=== PATIENT | female | born 1970 | race Caucasian/White ===

== ENCOUNTER → 2017-06-12 09:53 | Outpatient (POV) | payer OTHER, SELFPAY ==
[2017-06-12 10:09] VITALS: BP 145/86; PULSE 78; RESP 18; O2SAT 99; BMI 33.3
--- NOTE | 2017-06-12 10:30 | HMH.PAINSOAP ---
[facility] Pain Management SOAP Note Subjective:: This patient is a pleasant 46-year-old white female who we are treating for low back pain with lumbar radiculopathy symptoms. She also has neck pain with cervical radiculopathy symptoms. She is currently on [place] 10 mg 1 tablet 4 times a day. This does decrease her pain by 75-80%. She is stable with her medications. She also has a shunt in place for history of pseudotumor cerebri. She did get injections in the past which gave her some relief. She is doing well with her medications at this point with no side effects and on a stable dose so she would like to hold off on an injection at this point. We will refill her [place] 10 mg 1 tablet 4 times a day. We will give HER-2 months worth of prescriptions. [place] and urine drug screen are all appropriate. [facility] #[id number]. Objective:: Alert and oriented ?3 in no acute distress. Good range of motion of the cervical and lumbar spine. Tenderness over the cervical and lumbar spine. Motor strength of the upper and lower extremities is 5/5. There is no gross sensory deficit. Assessment:: Degenerative disc disease of the cervical spine with cervical radiculopathy symptoms. Degenerative disc disease of lumbar spine multiple levels with lumbar radiculopathy symptoms. Fibromyalgia. Plan:: We will refill her [place] 10 mg 1 tablet 4 times a day. She is doing well with her medication. She is stable on this medication. We will do injections as needed. We will give HER-2 months worth of prescriptions and follow-up with her in 3 months. She can order picker/assembler her third month from here in the pain clinic.
--- NOTE | 2017-06-12 10:33 | P.CONS_ITS ---
[facility] Pain Management SOAP Note Subjective:: This patient is a pleasant 46-year-old white female who we are treating for low back pain with lumbar radiculopathy symptoms. She also has neck pain with cervical radiculopathy symptoms. She is currently on [place] 10 mg 1 tablet 4 times a day. This does decrease her pain by 75-80%. She is stable with her medications. She also has a shunt in place for history of pseudotumor cerebri. She did get injections in the past which gave her some relief. She is doing well with her medications at this point with no side effects and on a stable dose so she would like to hold off on an injection at this point. We will refill her [place] 10 mg 1 tablet 4 times a day. We will give HER-2 months worth of prescriptions. [place] and urine drug screen are all appropriate. [facility] # [id number]. Objective:: Alert and oriented ?3 in no acute distress. Good range of motion of the cervical and lumbar spine. Tenderness over the cervical and lumbar spine. Motor strength of the upper and lower extremities is 5/5. There is no gross sensory deficit. Assessment:: Degenerative disc disease of the cervical spine with cervical radiculopathy symptoms. Degenerative disc disease of lumbar spine multiple levels with lumbar radiculopathy symptoms. Fibromyalgia. Plan:: We will refill her [place] 10 mg 1 tablet 4 times a day. She is doing well with her medication. She is stable on this medication. We will do injections as needed. We will give HER-2 months worth of prescriptions and follow-up with her in 3 months. She can pickling grader her third month from here in the pain clinic.
== END ==
PROVIDERS: Family Provider Nurse Practitioner Family; PCP Nurse Practitioner Family; Visit Provider Anesthesiology
DX: M54.12 Radiculopathy, cervical region (principal); M54.16 Radiculopathy, lumbar region
CPT/HCPCS: 99212

== ENCOUNTER → 2017-06-12 11:02 | Outpatient (CLI) | payer BC, SELFPAY ==
[2017-06-12 13:13] LABS: Amphetamine/Metha Screen,Urine Negative ng/mL (<1000); Barbiturates Screen,Urine Negative ng/mL (<200); Benzodiazepines Screen,Urine Negative ng/mL (200); Cannabinoid Screen,Urine Negative ng/mL (<50); Cocaine Screen,Urine Negative ng/g (<300); Methadone Screen,Urine Negative ng/mL (<300); Opiate Screen,Urine Positive ng/mL (<300); Phencyclidine Screen,Urine Negative ng/mL (<25)
[2017-06-16 22:08] LABS: Codeine Negative (Cutoff=100); Hydrocodone Positive (.); Hydromorphone Positive (.); Morphine Negative (Cutoff=100)
[2017-06-17 18:34] LABS: Opiates Positive (.)
== END ==
PROVIDERS: Visit Provider Anesthesiology
DX: Z79.899 Other long term (current) drug therapy (principal)
CPT/HCPCS: 80305; 80361; 80365; G0480

== ENCOUNTER → 2017-09-18 08:45 | Outpatient (POV) | payer BC, SELFPAY ==
[2017-09-18 08:57] VITALS: BP 125/88; PULSE 88; RESP 18; O2SAT 98; BMI 34.9
--- NOTE | 2017-09-18 09:04 | HMH.PAINSOAP ---
[facility] Pain Management SOAP Note Subjective:: Patient is a pleasant 47-year-old white female who presents today for medication refills. We are treating the patient for pain secondary to degenerative disc disease of the cervical spine with cervical radiculopathy and fibromyalgia also degenerative disc disease of the lumbar spine with lumbar radiculopathy. Patient is doing quite well at this time. She rates her pain at 3 out of 10. Patient states most of her pain is in her feet and hands today. Patient states she is having a slight fibromyalgia flare. Patient's tried Cymbalta in the past with not much relief with this. Patient is doing well on her [place] 10 mg 1 tab p.o. 4 times daily. Patient states that she has had no side effects. Patient's YANELI #[id number] reviewed and appropriate. Patient's urine drug screen has been appropriate in the past. Patient has had injections in the past and is still creeping some benefit from this. ROS General: no recent weight change, no fever, no sleep disturbances Respiratory: no cough, no shortness of air, no recurring pulmonary infections Cardiovascular/Peripheral Vascular: No chest pain, No palpitations, no edema, no shortness of breath. Gastrointestinal: no incontinence, normal bowel movements reported Genitourinary: no incontinence Musculoskeletal: Foot pain, arm pain Psychiatric: normal mood/ affect Neurological: [denies weakness in extremities], [denies balance issues] Objective:: Physical Exam General: Alert and oriented x3, no acute distress, pleasant and cooperative, [on room air] Lungs: Resps E/U, Symmetrical chest expansion, Eyes: PERRL Musculoskeletal: Flexion and extension of cervical and lumbar spine somewhat guarded secondary to pain, deep tendon reflexes normal, strength in upper and lower extremities [5/5], normal gait noted Neurological: speech clear, blueprint clerk equal, no gross sensory deficits Assessment:: Degenerative disc disease of the cervical spine spine with cervical radiculopathy symptoms, fibromyalgia, degenerative disc disease of lumbar spine with lumbar radiculopathy Plan:: We will refill the patient's medication [place] 10 mg 1 tab p.o. 4 times daily we will give her 2 months worth of medication and she can pick her third month up in the interim. We will follow-up with her in 3 months unless she needs this prior to this appointment. Dr. Salas has reviewed this chart and agrees with this plan of care. Yaneli and UDS have been reviewed. Patient has been prescribed a controlled substance after being counseled on the medication, medication safety, and possible side effects. YANELI report has been obtained and reviewed prior to prescription and found to be appropriate. Opioid contract was reviewed and signed by the patient, and that they have agreed to all of the terms set forth by our compliance program. This note was dictated using voice recognition software and may contain errors or omissions
--- NOTE | 2017-09-18 09:07 | P.CONS_ITS ---
[facility] Pain Management SOAP Note Subjective:: Patient is a pleasant 47-year-old white female who presents today for medication refills. We are treating the patient for pain secondary to degenerative disc disease of the cervical spine with cervical radiculopathy and fibromyalgia also degenerative disc disease of the lumbar spine with lumbar radiculopathy. Patient is doing quite well at this time. She rates her pain at 3 out of 10. Patient states most of her pain is in her feet and hands today. Patient states she is having a slight fibromyalgia flare. Patient's tried Cymbalta in the past with not much relief with this. Patient is doing well on her [place] 10 mg 1 tab p.o. 4 times daily. Patient states that she has had no side effects. Patient's YANELI #[id number] reviewed and appropriate. Patient's urine drug screen has been appropriate in the past. Patient has had injections in the past and is still creeping some benefit from this. ROS General: no recent weight change, no fever, no sleep disturbances Respiratory: no cough, no shortness of air, no recurring pulmonary infections Cardiovascular/Peripheral Vascular: No chest pain, No palpitations, no edema, no shortness of breath. Gastrointestinal: no incontinence, normal bowel movements reported Genitourinary: no incontinence Musculoskeletal: Foot pain, arm pain Psychiatric: normal mood/ affect Neurological: [denies weakness in extremities], [denies balance issues] Objective:: Physical Exam General: Alert and oriented x3, no acute distress, pleasant and cooperative, [ on room air] Lungs: Resps E/U, Symmetrical chest expansion, Eyes: PERRL Musculoskeletal: Flexion and extension of cervical and lumbar spine somewhat guarded secondary to pain, deep tendon reflexes normal, strength in upper and lower extremities [5/5], normal gait noted Neurological: speech clear, pneumatic system conveyor operator equal, no gross sensory deficits Assessment:: Degenerative disc disease of the cervical spine spine with cervical radiculopathy symptoms, fibromyalgia, degenerative disc disease of lumbar spine with lumbar radiculopathy Plan:: We will refill the patient's medication [place] 10 mg 1 tab p.o. 4 times daily we will give her 2 months worth of medication and she can pick her third month up in the interim. We will follow-up with her in 3 months unless she needs this prior to this appointment. Dr. Salas has reviewed this chart and agrees with this plan of care. Yaneli and UDS have been reviewed. Patient has been prescribed a controlled substance after being counseled on the medication, medication safety, and possible side effects. YANELI report has been obtained and reviewed prior to prescription and found to be appropriate. Opioid contract was reviewed and signed by the patient, and that they have agreed to all of the terms set forth by our compliance program. This note was dictated using voice recognition software and may contain errors or omissions
== END ==
PROVIDERS: Family Provider Nurse Practitioner Family; PCP Nurse Practitioner Family; Visit Provider Clinical Nurse Specialist Family Health
DX: M54.12 Radiculopathy, cervical region (principal); M79.7 Fibromyalgia
CPT/HCPCS: 99212

== ENCOUNTER → 2017-11-15 12:20 | Outpatient (CLI) | payer BC, SELFPAY ==
[2017-11-15 12:41] LABS: Amphetamine/Metha Screen,Urine Negative ng/mL (<1000); Barbiturates Screen,Urine Negative ng/mL (<200); Benzodiazepines Screen,Urine Negative ng/mL (<200); Cannabinoid Screen,Urine Negative ng/mL (<50); Cocaine Screen,Urine Negative ng/mL (<300); Methadone Screen,Urine Negative ng/mL (<300); Opiate Screen,Urine Positive ng/mL (<300); Phencyclidine Screen,Urine Negative ng/mL (<25)
[2017-11-21 18:18] LABS: Codeine Negative (Cutoff=100); Hydrocodone Positive (.); Hydromorphone Positive (.); Morphine Negative (Cutoff=100)
[2017-11-22 14:48] LABS: Opiates Positive (.)
== END ==
PROVIDERS: Visit Provider Clinical Nurse Specialist Family Health
DX: Z79.899 Other long term (current) drug therapy (principal)
CPT/HCPCS: 80305; 80361; 80365; G0480

== ENCOUNTER → 2017-12-11 09:44 | Outpatient (POV) | payer BC, SELFPAY ==
[2017-12-11 09:51] VITALS: BP 164/93; PULSE 90; RESP 18; O2SAT 98; BMI 33.3
--- NOTE | 2017-12-18 12:44 | HMH.PAINSOAP ---
[facility] Pain Management SOAP Note Subjective:: Date of service 12/11/2017 Patient is a pleasant 47-year-old white female who presents today for medication refills. We are treating the patient for pain secondary to degenerative disc disease of the cervical spine with cervical radiculopathy and fibromyalgia also degenerative disc disease of the lumbar spine with lumbar radiculopathy. Patient is doing quite well at this time. She rates her pain at 5 out of 10. Patient is doing well on her [place] 10 mg 1 tab p.o. 4 times daily. Patient states that she has had no side effects. Patient's YANELI reviewed and appropriate. Patient's urine drug screen has been appropriate in the past. Patient has had injections in the past and is still doing well. ROS General: no recent weight change, no fever, no sleep disturbances Respiratory: no cough, no shortness of air, no recurring pulmonary infections Cardiovascular/Peripheral Vascular: No chest pain, No palpitations, no edema, no shortness of breath. Gastrointestinal: no incontinence, normal bowel movements reported Genitourinary: no incontinence Musculoskeletal: Neck pain, arm pain Psychiatric: normal mood/ affect Neurological: [denies weakness in extremities], [denies balance issues] Objective:: Physical Exam General: Alert and oriented x3, no acute distress, pleasant and cooperative, [on room air] Lungs: Resps E/U, Symmetrical chest expansion, Eyes: PERRL Musculoskeletal: Flexion and extension of cervical spine somewhat guarded secondary to pain, deep tendon reflexes normal, strength in upper and lower extremities [5/5], [abnormal gait noted] Neurological: speech clear, chemical economist equal, no gross sensory deficits Assessment:: Degenerative disc disease of the cervical spine with cervical radiculopathy and fibromyalgia, degenerative disc disease of the lumbar spine with lumbar radiculopathy Plan:: We will refill the patient's [place] 10 mg 1 p.o. 4 times daily. We will give her 2 months worth of prescriptions. Patient's Yaneli and urine drug screen reviewed. Dr. Salas has reviewed this chart and agrees with this plan of care. I will follow-up with her in 3 months and she can brick picker her third month in the interim. Patient has been prescribed a controlled substance after being counseled on the medication, medication safety, and possible side effects. YANELI report has been obtained and reviewed prior to prescription and found to be appropriate. Opioid contract was reviewed and signed by the patient, and that they have agreed to all of the terms set forth by our compliance program. This note was dictated using voice recognition software and may contain errors or omissions
--- NOTE | 2017-12-18 12:47 | P.CONS_ITS ---
[facility] Pain Management SOAP Note Subjective:: Date of service 12/11/2017 Patient is a pleasant 47-year-old white female who presents today for medication refills. We are treating the patient for pain secondary to degenerative disc disease of the cervical spine with cervical radiculopathy and fibromyalgia also degenerative disc disease of the lumbar spine with lumbar radiculopathy. Patient is doing quite well at this time. She rates her pain at 5 out of 10. Patient is doing well on her [place] 10 mg 1 tab p.o. 4 times daily. Patient states that she has had no side effects. Patient's YANELI reviewed and appropriate. Patient's urine drug screen has been appropriate in the past. Patient has had injections in the past and is still doing well. ROS General: no recent weight change, no fever, no sleep disturbances Respiratory: no cough, no shortness of air, no recurring pulmonary infections Cardiovascular/Peripheral Vascular: No chest pain, No palpitations, no edema, no shortness of breath. Gastrointestinal: no incontinence, normal bowel movements reported Genitourinary: no incontinence Musculoskeletal: Neck pain, arm pain Psychiatric: normal mood/ affect Neurological: [denies weakness in extremities], [denies balance issues] Objective:: Physical Exam General: Alert and oriented x3, no acute distress, pleasant and cooperative, [on room air] Lungs: Resps E/U, Symmetrical chest expansion, Eyes: PERRL Musculoskeletal: Flexion and extension of cervical spine somewhat guarded secondary to pain, deep tendon reflexes normal, strength in upper and lower extremities [5/5], [abnormal gait noted] Neurological: speech clear, mechanical design technician equal, no gross sensory deficits Assessment:: Degenerative disc disease of the cervical spine with cervical radiculopathy and fibromyalgia, degenerative disc disease of the lumbar spine with lumbar radiculopathy Plan:: We will refill the patient's [place] 10 mg 1 p.o. 4 times daily. We will give her 2 months worth of prescriptions. Patient's Yaneli and urine drug screen reviewed. Dr. Salas has reviewed this chart and agrees with this plan of care. I will follow-up with her in 3 months and she can lemon picker her third month in the interim. Patient has been prescribed a controlled substance after being counseled on the medication, medication safety, and possible side effects. YANELI report has been obtained and reviewed prior to prescription and found to be appropriate. Opioid contract was reviewed and signed by the patient, and that they have agreed to all of the terms set forth by our compliance program. This note was dictated using voice recognition software and may contain errors or omissions
== END ==
PROVIDERS: Family Provider Nurse Practitioner Family; PCP Nurse Practitioner Family; Visit Provider Clinical Nurse Specialist Family Health
DX: M50.10 Cervical disc disorder with radiculopathy, unspecified cervical region (principal); M79.1 Myalgia; M51.16 Intervertebral disc disorders with radiculopathy, lumbar region
CPT/HCPCS: 99213

== ENCOUNTER → 2018-03-05 09:20 | Outpatient (POV) | payer BC, SELFPAY ==
[2018-03-05 09:34] VITALS: BP 158/87; PULSE 82; RESP 18; O2SAT 98; BMI 32.9
--- NOTE | 2018-03-05 09:52 | HMH.PAINSOAP ---
[facility] Pain Management SOAP Note Subjective:: Patient is a pleasant 47-year-old white female who presents today for medication refills. We are treating her for pain secondary to degenerative disc disease of the cervical spinal cervical radiculopathy and fibromyalgia. Patient also has degenerative disc disease lumbar spine with lumbar radiculopathy. She is doing well rating her pain a 7 out of 10. She states that it is increased to the weather. Patient is on [place] 10 mg 1 tab p.o. 4 times daily and states that she has no side effects. Yaneli reviewed and appropriate. Urine drug screen has been appropriate in the past. ROS General: no recent weight change, no fever, no sleep disturbances Respiratory: no cough, no shortness of air, no recurring pulmonary infections Cardiovascular/Peripheral Vascular: No chest pain, No palpitations, no edema, no shortness of breath. Gastrointestinal: no incontinence, normal bowel movements reported Genitourinary: no incontinence Musculoskeletal: Neck pain, arm pain, back pain Psychiatric: normal mood/ affect Neurological: [denies weakness in extremities], [denies balance issues] Objective:: Physical Exam General: Alert and oriented x3, no acute distress, pleasant and cooperative, [on room air] Lungs: Resps E/U, Symmetrical chest expansion, Eyes: PERRL Musculoskeletal: Flexion and extension of cervical and lumbar spine somewhat guarded secondary to pain, deep tendon reflexes normal, strength in upper and lower extremities [5/5], slightly antalgic gait noted Neurological: speech clear, glass technician/installer equal, no gross sensory deficits Assessment:: Degenerative disc disease cervical spine with cervical radiculopathy, fibromyalgia, degenerative disc disease lumbar spine with lumbar radiculopathy Plan:: We will refill the patient's [place] 10 mg 1 p.o. 4 times daily and give her 2 months worth of prescriptions. Yaneli and urine drug screen reviewed. Dr. Salas has reviewed this chart and agrees with this plan of care. I will follow-up with her in 3 months and she can picked edge sewing machine operator her third month in the interim. We will also call in [facility] to see if this is beneficial for her. Patient has been prescribed a controlled substance after being counseled on the medication, medication safety, and possible side effects. YANELI report has been obtained and reviewed prior to prescription and found to be appropriate. Opioid contract was reviewed and signed by the patient, and that they have agreed to all of the terms set forth by our compliance program. This note was dictated using voice recognition software and may contain errors or omissions
[2018-03-05 11:12] LABS: Barbiturates Screen,Urine Negative ng/mL (<200); Benzodiazepines Screen,Urine Negative ng/mL (<200); Cannabinoid Screen,Urine Negative ng/mL (<50); Cocaine Screen,Urine Negative ng/mL (<300); Methadone Screen,Urine Negative ng/mL (<300); Opiate Screen,Urine Positive ng/mL (<300); Phencyclidine Screen,Urine Negative ng/mL (<25)
[2018-03-05 11:23] LABS: Amphetamine/Metha Screen,Urine Negative ng/mL (<1000)
[2018-03-11 10:08] LABS: Codeine Negative (Cutoff=100); Hydrocodone Positive (.); Hydromorphone Positive (.); Morphine Negative (Cutoff=100)
[2018-03-12 06:30] LABS: Opiates Positive (.)
== END ==
PROVIDERS: PCP Nurse Practitioner Family; Visit Provider Clinical Nurse Specialist Family Health
DX: M50.10 Cervical disc disorder with radiculopathy, unspecified cervical region (principal); M51.16 Intervertebral disc disorders with radiculopathy, lumbar region; M79.7 Fibromyalgia; Z79.899 Other long term (current) drug therapy
CPT/HCPCS: 80305; 80361; 80365; 99213; G0480

== ENCOUNTER → 2018-06-04 09:30 | Outpatient (POV) | payer BC, SELFPAY ==
[2018-06-04 09:43] VITALS: BP 138/69; PULSE 75; RESP 18; O2SAT 98; BMI 33.3
--- NOTE | 2018-06-04 09:52 | HMH.PAINSOAP ---
[facility] Pain Management SOAP Note Subjective:: Patient is a pleasant 47-year-old white female who presents today for medication refills. We are treating her for pain secondary to degenerative disc disease of cervical spine with cervical radiculopathy and fibromyalgia. She rates her pain a 3 out of 10 today and states she is doing well. She denies any side effects from medication and is currently managed with [place] 10 mg 1 tab p.o. 4 times daily. ROS General: no recent weight change, no fever, no sleep disturbances Respiratory: no cough, no shortness of air, no recurring pulmonary infections Cardiovascular/Peripheral Vascular: No chest pain, No palpitations, no edema, no shortness of breath. Gastrointestinal: no incontinence, normal bowel movements reported Genitourinary: no incontinence Musculoskeletal: Back pain, neck pain Psychiatric: normal mood/ affect Neurological: [denies weakness in extremities], [denies balance issues] Objective:: Physical Exam General: Alert and oriented x3, no acute distress, pleasant and cooperative, [on room air] Lungs: Resps E/U, Symmetrical chest expansion, Eyes: PERRL Musculoskeletal: Flexion and extension of cervical and lumbar spine somewhat guarded secondary to pain, deep tendon reflexes normal, strength in upper and lower extremities [5/5], normal gait noted Neurological: speech clear, car trimmer equal, no gross sensory deficits Assessment:: Degenerative disc disease cervical spine with cervical radiculopathy/fibromyalgia/degenerative disc disease lumbar spine with lumbar radiculopathy Plan:: We will refill the patient's [place] 10 mg 1 p.o. 4 times daily and give her 2 months worth of prescriptions. Yaneli and urine drug screen reviewed and appropriate. Dr. Salas has reviewed the chart and agrees with this plan of care. I will follow-up with her in 3 months and she can bean picker her third month in the interim. Patient has been prescribed a controlled substance after being counseled on the medication, medication safety, and possible side effects. YANELI report has been obtained and reviewed prior to prescription and found to be appropriate. Opioid contract was reviewed and signed by the patient, and that they have agreed to all of the terms set forth by our compliance program. Dr. Salas has reviewed this note and agrees with this plan of care. This note was dictated using voice recognition software and may contain errors or omissions
--- NOTE | 2018-06-04 09:56 | P.CONS_ITS ---
[facility] Pain Management SOAP Note Subjective:: Patient is a pleasant 47-year-old white female who presents today for medication refills. We are treating her for pain secondary to degenerative disc disease of cervical spine with cervical radiculopathy and fibromyalgia. She rates her pain a 3 out of 10 today and states she is doing well. She denies any side effects from medication and is currently managed with [place] 10 mg 1 tab p.o. 4 times daily. ROS General: no recent weight change, no fever, no sleep disturbances Respiratory: no cough, no shortness of air, no recurring pulmonary infections Cardiovascular/Peripheral Vascular: No chest pain, No palpitations, no edema, no shortness of breath. Gastrointestinal: no incontinence, normal bowel movements reported Genitourinary: no incontinence Musculoskeletal: Back pain, neck pain Psychiatric: normal mood/ affect Neurological: [denies weakness in extremities], [denies balance issues] Objective:: Physical Exam General: Alert and oriented x3, no acute distress, pleasant and cooperative, [on room air] Lungs: Resps E/U, Symmetrical chest expansion, Eyes: PERRL Musculoskeletal: Flexion and extension of cervical and lumbar spine somewhat guarded secondary to pain, deep tendon reflexes normal, strength in upper and lower extremities [5/5], normal gait noted Neurological: speech clear, electronic technologist equal, no gross sensory deficits Assessment:: Degenerative disc disease cervical spine with cervical radiculopathy/fibromya lgia/degenerative disc disease lumbar spine with lumbar radiculopathy Plan:: We will refill the patient's [place] 10 mg 1 p.o. 4 times daily and give her 2 months worth of prescriptions. Yaneli and urine drug screen reviewed and appropriate. Dr. Salas has reviewed the chart and agrees with this plan of care. I will follow-up with her in 3 months and she can peanut picker her third month in the interim. Patient has been prescribed a controlled substance after being counseled on the medication, medication safety, and possible side effects. YANELI report has been obtained and reviewed prior to prescription and found to be appropriate. Opioid contract was reviewed and signed by the patient, and that they have agreed to all of the terms set forth by our compliance program. Dr. Salas has reviewed this note and agrees with this plan of care. This note was dictated using voice recognition software and may contain errors or omissions
== END ==
PROVIDERS: PCP Nurse Practitioner Family; Visit Provider Clinical Nurse Specialist Family Health
DX: M50.10 Cervical disc disorder with radiculopathy, unspecified cervical region (principal); M79.7 Fibromyalgia; M51.16 Intervertebral disc disorders with radiculopathy, lumbar region
CPT/HCPCS: 99213

== ENCOUNTER → 2018-08-01 12:56 | Outpatient (CLI) | payer BC, SELFPAY ==
[2018-08-01 16:10] LABS: Amphetamine/Metha Screen,Urine Negative ng/mL (<1000); Barbiturates Screen,Urine Negative ng/mL (<200); Benzodiazepines Screen,Urine Negative ng/mL (<200); Cannabinoid Screen,Urine Negative ng/mL (<50); Cocaine Screen,Urine Negative ng/mL (<300); Methadone Screen,Urine Negative ng/mL (<300); Opiate Screen,Urine Positive ng/mL (<300); Phencyclidine Screen,Urine Negative ng/mL (<25)
[2018-08-07 15:09] LABS: Codeine Negative (Cutoff=100); Hydrocodone Positive (.); Hydromorphone Positive (.); Morphine Negative (Cutoff=100)
[2018-08-08 06:52] LABS: Opiates Positive (.)
== END ==
PROVIDERS: Visit Provider Clinical Nurse Specialist Family Health
DX: Z79.899 Other long term (current) drug therapy (principal)
CPT/HCPCS: 80305; 80361; 80365; G0480

== ENCOUNTER → 2018-08-27 09:32 | Outpatient (POV) | payer BC, SELFPAY ==
[2018-08-27 09:40] VITALS: BP 151/92; PULSE 88; RESP 18; O2SAT 98; BMI 33.3
--- NOTE | 2018-08-27 09:42 | HMH.PAINSOAP ---
[facility] Pain Management SOAP Note Subjective:: Patient is a pleasant 47-year-old white female who presents today for medication refills. She states that she is feeling well, pain a 5 out of 10. She does report that this is her baseline. Patient is preparing for vacation, which she will be traveling to [place] in a car. She does state that she thinks her medication regimen will be effective since it worked last year during her travels. Patient is currently being managed with Empire 10 mg 1 p.o. 4 times daily. She denies any side effects from the medication. ROS General: no recent weight change, no fever, no sleep disturbances Respiratory: no cough, no shortness of air, no recurring pulmonary infections Cardiovascular/Peripheral Vascular: No chest pain, No palpitations, no edema, no shortness of breath. Gastrointestinal: no incontinence, normal bowel movements reported Genitourinary: no incontinence Musculoskeletal: Back pain, leg pain [] Psychiatric: normal mood/ affect, [denies depression], [denies anxiety] Neurological: [denies weakness in extremities], [denies balance issues] Objective:: Physical Exam General: Alert and oriented x3, no acute distress, pleasant and cooperative, [on room air] Lungs: Resps E/U, Symmetrical chest expansion, Eyes: PERRL Musculoskeletal: Flexion and extension of lumbar spine somewhat guarded secondary to pain, deep tendon reflexes normal, strength in upper and lower extremities [5/5], [abnormal gait noted] Neurological: speech clear, visual specialist equal, no gross sensory deficits Assessment:: Degenerative disc disease cervical spine with cervical radiculopathy, fibromyalgia, degenerative disc disease lumbar spine with lumbar radiculopathy Plan:: We will refill the patient's Empire 10 mg 1 p.o. 4 times daily. We will give her 2 months of prescriptions, and she can picking table worker her third month in the interim. I will follow-up with her in 3 months. He is been instructed to call the office if she has any issues prior to the next appointment. Patient has been prescribed a controlled substance after being counseled on the medication, medication safety, and possible side effects. YANELI report has been obtained and reviewed prior to prescription and found to be appropriate. Opioid contract was reviewed and signed by the patient, and that they have agreed to all of the terms set forth by our compliance program. Dr. Salas has reviewed this note and agrees with this plan of care. This note was dictated using voice recognition software and may contain errors or omissions
--- NOTE | 2018-08-27 09:45 | P.CONS_ITS ---
[facility] Pain Management SOAP Note Subjective:: Patient is a pleasant 47-year-old white female who presents today for medication refills. She states that she is feeling well, pain a 5 out of 10. She does report that this is her baseline. Patient is preparing for vacation, which she will be traveling to [place] in a car. She does state that she thinks her medication regimen will be effective since it worked last year during her travels. Patient is currently being managed with Woodridge 10 mg 1 p.o. 4 times daily. She denies any side effects from the medication. ROS General: no recent weight change, no fever, no sleep disturbances Respiratory: no cough, no shortness of air, no recurring pulmonary infections Cardiovascular/Peripheral Vascular: No chest pain, No palpitations, no edema, no shortness of breath. Gastrointestinal: no incontinence, normal bowel movements reported Genitourinary: no incontinence Musculoskeletal: Back pain, leg pain [] Psychiatric: normal mood/ affect, [denies depression], [denies anxiety] Neurological: [denies weakness in extremities], [denies balance issues] Objective:: Physical Exam General: Alert and oriented x3, no acute distress, pleasant and cooperative, [on room air] Lungs: Resps E/U, Symmetrical chest expansion, Eyes: PERRL Musculoskeletal: Flexion and extension of lumbar spine somewhat guarded secondary to pain, deep tendon reflexes normal, strength in upper and lower extremities [5/5], [abnormal gait noted] Neurological: speech clear, industrial technology teacher equal, no gross sensory deficits Assessment:: Degenerative disc disease cervical spine with cervical radiculopathy, fibromyalgia, degenerative disc disease lumbar spine with lumbar radiculopathy Plan:: We will refill the patient's Woodridge 10 mg 1 p.o. 4 times daily. We will give her 2 months of prescriptions, and she can hand picker her third month in the interim. I will follow-up with her in 3 months. He is been instructed to call the office if she has any issues prior to the next appointment. Patient has been prescribed a controlled substance after being counseled on the medication, medication safety, and possible side effects. YANELI report has been obtained and reviewed prior to prescription and found to be appropriate. Opioid contract was reviewed and signed by the patient, and that they have agreed to all of the terms set forth by our compliance program. Dr. Salas has reviewed this note and agrees with this plan of care. This note was dictated using voice recognition software and may contain errors or omissions
== END ==
PROVIDERS: PCP Nurse Practitioner Family; Visit Provider Clinical Nurse Specialist Family Health
DX: M50.10 Cervical disc disorder with radiculopathy, unspecified cervical region (principal); M79.7 Fibromyalgia; M51.16 Intervertebral disc disorders with radiculopathy, lumbar region
CPT/HCPCS: 99212

== ENCOUNTER → 2018-11-19 10:31 | Outpatient (POV) | payer BC, SELFPAY ==
--- NOTE | 2018-11-19 11:24 | HMH.PAINSOAP ---
[facility] Pain Management SOAP Note Subjective:: Patient is a very pleasant 48-year-old white female who presents today for medication refills. She rates her pain a 5 out of 10. She states that this is her baseline. Overall she is doing well she is having some fibromyalgia flares. Patient is currently on Cooter 10 mg 1 p.o. 4 times daily. She denies side effects from this medication. Yaneli #[id number] reviewed and appropriate. Urine drug screens have been appropriate. ROS General: no recent weight change, no fever, no sleep disturbances Respiratory: no cough, no shortness of air, no recurring pulmonary infections Cardiovascular/Peripheral Vascular: No chest pain, No palpitations, no edema, no shortness of breath. Gastrointestinal: no incontinence, normal bowel movements reported Genitourinary: no incontinence Musculoskeletal: Back pain, neck pain Psychiatric: normal mood/ affect, [denies depression], [denies anxiety] Neurological: [denies weakness in extremities], [denies balance issues] Objective:: Physical Exam General: Alert and oriented x3, no acute distress, pleasant and cooperative, [on room air] Lungs: Resps E/U, Symmetrical chest expansion, Eyes: PERRL Musculoskeletal: Flexion and extension of cervical and lumbar spine somewhat guarded secondary to pain, deep tendon reflexes normal, strength in upper and lower extremities [5/5], normal gait noted Neurological: speech clear, alarm installer equal, no gross sensory deficits Assessment:: Degenerative disc disease cervical spinal cervical radiculopathy, fibromyalgia, degenerative disc disease lumbar spine with lumbar radiculopathy Plan:: We will refill her Cooter 10 mg 1 p.o. 4 times daily we will give her 2 months worth of prescriptions she can orange picking supervisor the third month in the interim. I will follow-up with her 3 months reassess her symptoms at that time. We also had a long conversation about CBD she is can look into the THC free options. Call the office if she has any issues prior to her next appointment. Patient has been prescribed a controlled substance after being counseled on the medication, medication safety, and possible side effects. YANELI report has been obtained and reviewed prior to prescription and found to be appropriate. Opioid contract was reviewed and signed by the patient, and that they have agreed to all of the terms set forth by our compliance program. Dr. Salas has reviewed this note and agrees with this plan of care. This note was dictated using voice recognition software and may contain errors or omissions Pain Management Hx Components *Have you ever received a pneumonia vaccine?: Yes *Have you received a flu vaccine this season?: Yes - *Social History *Occupational Status:: other *Travel in the last 8 weeks: None
[2018-11-19 11:39] VITALS: BP 151/80; PULSE 82; RESP 18; O2SAT 98; BMI 33.3
== END ==
PROVIDERS: PCP Nurse Practitioner Family; Visit Provider Clinical Nurse Specialist Family Health
DX: M50.10 Cervical disc disorder with radiculopathy, unspecified cervical region (principal); M79.7 Fibromyalgia; M51.16 Intervertebral disc disorders with radiculopathy, lumbar region
CPT/HCPCS: 99212

== ENCOUNTER → 2019-01-22 10:57 | Outpatient (CLI) | payer BC, SELFPAY ==
[2019-01-22 11:50] LABS: Amphetamine/Metha Screen,Urine Negative ng/mL (<1000); Barbiturates Screen,Urine Negative ng/mL (<200); Benzodiazepines Screen,Urine Negative ng/mL (<200); Cannabinoid Screen,Urine Negative ng/mL (<50); Cocaine Screen,Urine Negative ng/mL (<300); Methadone Screen,Urine Negative ng/mL (<300); Opiate Screen,Urine Positive ng/mL (<300); Phencyclidine Screen,Urine Negative ng/mL (<25)
[2019-01-26 12:12] LABS: Codeine Negative (Cutoff=100); Hydrocodone Positive (.); Hydromorphone Positive (.); Morphine Negative (Cutoff=100)
[2019-01-26 18:47] LABS: Opiates Positive (.)
== END ==
PROVIDERS: Visit Provider Clinical Nurse Specialist Family Health
DX: Z79.899 Other long term (current) drug therapy (principal)
CPT/HCPCS: 80305; 80361; 80365; G0480

== ENCOUNTER → 2019-02-14 09:27 | Outpatient (POV) | payer BC, SELFPAY ==
[2019-02-14 09:29] VITALS: BP 155/88; PULSE 79; RESP 18; O2SAT 98; BMI 32.9
--- NOTE | 2019-02-14 09:39 | HMH.PAINSOAP ---
[facility] Pain Management SOAP Note Subjective:: Patient is a pleasant 48-year-old white female who presents today for medication refills. She is being treated for low neck pain with cervical radiculopathy symptoms, fibromyalgia, and degenerative disc disease of her lumbar spine with radiculopathy symptoms. Patient is managed with Springer 10 mg 1 tablet p.o. 4 times daily. She denies any side effects of medications. She says that the medication is giving her approximately 80% relief. She rates her pain a 5 out of 10 today. Her Yaneli #[id number] has been reviewed and is appropriate. Her urine drug screens have been appropriate. Review of Systems General: No recent weight changes, no fever, no sleep disturbances Respiratory: No cough, no shortness of air, no recurring pulmonary infections Cardiovascular/peripheral vascular: No chest pain, no palpitations, no edema, no shortness of breath Gastrointestinal: No new onset incontinence, normal bowel movements reported Genitourinary: No new onset incontinence Musculoskeletal: Neck and back pain Psychiatric: Normal mood/affect Neurological: [Denies weakness in extremities], [denies balance issues] Objective:: Physical exam General: Alert and oriented x3, no acute distress, pleasant and cooperative, [on room air] Lungs: Respirations even and unlabored, symmetrical chest expansion Eyes: PERRL Musculoskeletal: Flexion and extension of cervical and lumbar spine somewhat guarded secondary to pain, deep tendon reflexes normal, strength in upper and lower extremities [5/5], [abnormal gait noted] Neurological: Speech clear, dragger equal, no gross sensory deficit Assessment:: Degenerative disc disease cervical spine with cervical radiculopathy, fibromyalgia, degenerative disc disease lumbar spine with lumbar radiculopathy symptoms Plan:: We will refill the patient's Springer 10 mg 1 tablet p.o. 4 times daily. We will give her 2 months worth of medication. She can pickling operator her third month in the interim. We will see the patient back in the clinic in 3 months to reassess her symptoms. She has been instructed to contact the clinic if she has any concerns before her next appointment. Dr. Salas has reviewed this note and agrees with this plan of care. This note was dictated using voice recognition software and make contain errors or omissions. Patient has been prescribed a controlled substance after being counseled on the medication, medication safety, and possible side effects. YANELI report has been obtained and reviewed prior to prescription and found to be appropriate. Opioid contract was reviewed and signed by the patient, and that they have agreed to all of the terms set forth by our compliance program. [facility] History I have reviewed the patient's past medical history: Yes *Have you ever received a pneumonia vaccine?: Yes *Have you received a flu vaccine this season?: Yes - *Social History *Occupational Status:: other *Travel in the last 8 weeks: None Family Hx:: Unable to obtain
--- NOTE | 2019-02-14 09:42 | P.CONS_ITS ---
[facility] Pain Management SOAP Note Subjective:: Patient is a pleasant 48-year-old white female who presents today for medication refills. She is being treated for low neck pain with cervical radiculopathy symptoms, fibromyalgia, and degenerative disc disease of her lumbar spine with radiculopathy symptoms. Patient is managed with Manson 10 mg 1 tablet p.o. 4 times daily. She denies any side effects of medications. She says that the medication is giving her approximately 80% relief. She rates her pain a 5 out of 10 today. Her Yaneli #[id number] has been reviewed and is appropriate. Her urine drug screens have been appropriate. Review of Systems General: No recent weight changes, no fever, no sleep disturbances Respiratory: No cough, no shortness of air, no recurring pulmonary infections Cardiovascular/peripheral vascular: No chest pain, no palpitations, no edema, no shortness of breath Gastrointestinal: No new onset incontinence, normal bowel movements reported Genitourinary: No new onset incontinence Musculoskeletal: Neck and back pain Psychiatric: Normal mood/affect Neurological: [Denies weakness in extremities], [denies balance issues] Objective:: Physical exam General: Alert and oriented x3, no acute distress, pleasant and cooperative, [on room air] Lungs: Respirations even and unlabored, symmetrical chest expansion Eyes: PERRL Musculoskeletal: Flexion and extension of cervical and lumbar spine somewhat guarded secondary to pain, deep tendon reflexes normal, strength in upper and lower extremities [5/5], [abnormal gait noted] Neurological: Speech clear, machinery mechanic equal, no gross sensory deficit Assessment:: Degenerative disc disease cervical spine with cervical radiculopathy, fibromyalgia, degenerative disc disease lumbar spine with lumbar radiculopathy symptoms Plan:: We will refill the patient's Manson 10 mg 1 tablet p.o. 4 times daily. We will give her 2 months worth of medication. She can brass pickler her third month in the interim. We will see the patient back in the clinic in 3 months to reassess her symptoms. She has been instructed to contact the clinic if she has any concerns before her next appointment. Dr. Salas has reviewed this note and agrees with this plan of care. This note was dictated using voice recognition software and make contain errors or omissions. Patient has been prescribed a controlled substance after being counseled on the medication, medication safety, and possible side effects. YANELI report has been obtained and reviewed prior to prescription and found to be appropriate. Opioid contract was reviewed and signed by the patient, and that they have agreed to all of the terms set forth by our compliance program. [facility] History I have reviewed the patient's past medical history: Yes *Have you ever received a pneumonia vaccine?: Yes *Have you received a flu vaccine this season?: Yes - *Social History *Occupational Status:: other *Travel in the last 8 weeks: None Family Hx:: Unable to obtain
== END ==
PROVIDERS: PCP Nurse Practitioner Family; Visit Provider Clinical Nurse Specialist Family Health
DX: M50.10 Cervical disc disorder with radiculopathy, unspecified cervical region (principal); M51.16 Intervertebral disc disorders with radiculopathy, lumbar region; M79.7 Fibromyalgia
CPT/HCPCS: 99212

== ENCOUNTER → 2019-04-09 10:47 | Outpatient (CLI) | payer OTHER, SELFPAY ==
[2019-04-09 11:27] LABS: Basophils # 0.1 K/mm3 (0-0.2); Eosinophils # 0.2 K/mm3 (0.0-0.4); Eosinophils % 2.4 % (0.1-12.0); Hematocrit 45.2 % (37.0-47.0); Hemoglobin 14.8 g/dL (12.2-16.2); Lymphocytes # 1.5 K/mm3 (0.7-4.5); Lymphocytes % 20.4 % (10-50); Mean Corpuscular HGB Conc 32.7 g/dL (31.8-35.4); Mean Corpuscular Hemoglobin 27.9 pg (27.0-31.2); Mean Corpuscular Volume 85.4 fl (81-99); Mean Platelet Volume 8.5 fl (7.4-10.4); Monocytes # 0.3 K/mm3 (0.1-1.0); Monocytes % 4.6 % (1.7-9.3); Neutrophils # 5.1 K/mm3 (1.8-7.8); Neutrophils % 71.5 % (37.0-80.0); Platelet Count 231 K/mm3 (142-424); Red Blood Count 5.29 M/mm3 (4.20-5.40); Red Cell Distribution Width 13.4 % (11.5-17.5); White Blood Count 7.1 K/mm3 (4.8-10.8)
[2019-04-09 12:06] LABS: Hemoglobin A1C 8.7 % (0.0-7.0)
[2019-04-09 13:22] LABS: Alanine Aminotransferase 30 U/L (12-78); Albumin Level 3.8 gm/dL (3.4-5.0); Alkaline Phosphatase 83 U/L (46-116); Anion Gap 13.1 mEq/L (5-15); Aspartate Amino Transferase 21 U/L (15-37); Bilirubin,Total 0.4 mg/dL (0.2-1.0); Blood Urea Nitrogen 10 mg/dL (7-18); Calcium 8.8 mg/dL (8.5-10.1); Carbon Dioxide 28 mmol/L (21.0-32.0); Chloride 101 mmol/L (98-107); Cholesterol 194 mg/dL (140-200); Estimated Glomerular Filt Rate 89 ml/min (>60); Free T4 (Free Thyroxine) 1.53 ng/dl (0.76-1.46); GFR (African American) 108 ML/MIN (>60); Globulin 3.7 gm/dl (1.3-3.2); Glucose 154 mg/dL (74-106); HDL Cholesterol 39 mg/dL (29-89); LDL Cholesterol 81 mg/dL (0-130); Potassium 4.1 mmoL/L (3.5-5.1); Sodium 138 mmol/L (136-145); Thyroid Stimulating Hormone 2.85 uIU/ml (0.358-3.740); Total Protein,Serum 7.5 gm/dL (6.4-8.2); Triglycerides 370 mg/dL (30-200); VLDL Cholesterol 74 mg/dL (0-40)
[2019-04-09 16:18] LABS: Amphetamine/Metha Screen,Urine Negative ng/mL (<1000); Barbiturates Screen,Urine Negative ng/mL (<200); Benzodiazepines Screen,Urine Negative ng/mL (<200); Cannabinoid Screen,Urine Negative ng/mL (<50); Cocaine Screen,Urine Negative ng/mL (<300); Methadone Screen,Urine Negative ng/mL (<300); Opiate Screen,Urine Positive ng/mL (<300); Phencyclidine Screen,Urine Negative ng/mL (<25)
[2019-04-15 09:37] LABS: Codeine Negative (Cutoff=100); Hydrocodone Positive (.); Hydromorphone Positive (.); Morphine Negative (Cutoff=100)
[2019-04-17 17:35] LABS: Opiates Positive (.)
== END ==
LOC: LAB 10:51
PROVIDERS: Nurse Practitioner Family; Visit Provider Clinical Nurse Specialist Family Health
DX: Z79.899 Other long term (current) drug therapy (principal); E11.9 Type 2 diabetes mellitus without complications
CPT/HCPCS: 36415; 80053; 80061; 80305; 80361; 80365; 83036; 84439; 84443; 85025; G0480

== ENCOUNTER → 2019-05-13 09:38 | Outpatient (POV) | payer BC, SELFPAY ==
--- NOTE | 2019-05-13 10:21 | HMH.PAINSOAP ---
[facility] Pain Management SOAP Note Subjective:: Patient is a pleasant 48-year-old white female who presents today for medication refills. She is being treated for neck pain with cervical radiculopathy symptoms, fibromyalgia, and degenerative disc disease lumbar spine with lumbar radiculopathy symptoms. She does rate her pain a 5 out of 10 today. She is managed with Howe 10 mg 1 tablet p.o. 4 times daily. She denies any side effects to medications. Patient's Ti #[id number] has been reviewed and is appropriate. Her urine drug screens are appropriate. Morphine equivalent is 40. Patient denies any side effects to her medications. Review of Systems General: No recent weight changes, no fever, no sleep disturbances Respiratory: No cough, no shortness of air, no recurring pulmonary infections Cardiovascular/peripheral vascular: No chest pain, no palpitations, no edema, no shortness of breath Gastrointestinal: No new onset incontinence, normal bowel movements reported Genitourinary: No new onset incontinence Musculoskeletal: Neck pain and low back pain Psychiatric: Normal mood/affect Neurological: [Denies weakness in extremities], [denies balance issues] Objective:: Physical exam General: Alert and oriented x3, no acute distress, pleasant and cooperative, [on room air] Lungs: Respirations even and unlabored, symmetrical chest expansion Eyes: PERRL Musculoskeletal: Flexion and extension of cervical and lumbar spine somewhat guarded secondary to pain, deep tendon reflexes normal, strength in upper and lower extremities [5/5], [abnormal gait noted] Neurological: Speech clear, admissions manager rn equal, no gross sensory deficit Assessment:: Degenerative disc disease cervical and lumbar spine with cervical and lumbar radiculopathy symptoms, fibromyalgia Plan:: We will refill the patient' Howe 10 mg 1 tablet p.o. 4 times daily. We will give HER-2 months worth of medication and she can picking crew supervisor her third month in the interim. We will see her back in the clinic in 3 months to reassess her symptoms. The patient has been instructed to contact clinic if she has any concerns before her next appointment. Dr. Salas has reviewed this note and agrees with this plan of care. This note was dictated using voice recognition software and make contain errors or omissions. [facility] History I have reviewed the patient's past medical history: Yes *Have you ever received a pneumonia vaccine?: Yes *Have you received a flu vaccine this season?: Yes - *Social History *Occupational Status:: other *Travel in the last 8 weeks: None Family Hx:: Unable to obtain
[2019-05-13 10:28] VITALS: BP 136/96; PULSE 97; RESP 18; O2SAT 99; BMI 33.3
== END ==
PROVIDERS: PCP Nurse Practitioner Family; Visit Provider Clinical Nurse Specialist Family Health
DX: M50.30 Other cervical disc degeneration, unspecified cervical region (principal); M51.16 Intervertebral disc disorders with radiculopathy, lumbar region; M79.7 Fibromyalgia
CPT/HCPCS: 99212

== ENCOUNTER → 2019-08-05 11:05 | Outpatient (POV) | payer BC, SELFPAY ==
--- NOTE | 2019-08-05 11:14 | HMH.VVPMSO ---
[facility] PM Virtual Visit SOAP Consent for virtual visit:: With the recent concerns about the COVID-19, we are trying to minimize exposure to you by shifting to telehealth appointments whenever possible. It restricts me from seeing you in person, but the trade off is protecting you during this pandemic. Can you see and hear me okay, and do you consent to this option? If not, I would be happy to see if we can reschedule your appointment in the future, when feasible. Has patient consented to this virtual visit?: Yes Subjective:: She is a very pleasant 49-year-old white female who presents today for medication refills virtual visit. She is being treated for neck pain with cervical radiculopathy symptoms, fibromyalgia and degenerative disc disease lumbar spine with lumbar radiculopathy symptoms. She rates her pain a 5 out of 10 which is her baseline. She is managed with Blauvelt 10 mg 1 tab p.o. 4 times daily. She denies any side effects to the medication. [facility] #[id number] reviewed and appropriate urine drug screens have been appropriate in the past. Her morphine equivalent is 40. ROS General: no recent weight change, no fever, no sleep disturbances Respiratory: no cough, no shortness of air, no recurring pulmonary infections Cardiovascular/Peripheral Vascular: No chest pain, No palpitations, no edema, no shortness of breath. Gastrointestinal: no new onset incontinence, normal bowel movements reported Genitourinary: no new onset incontinence Musculoskeletal: Neck pain, back pain Psychiatric: normal mood/ affect, [denies depression], [denies anxiety] Neurological: [denies new onset weakness in extremities], [denies new onset balance issues] Objective:: Physical exam: Constitutional: Healthy appearing, well-developed, alert, in no acute distress Psychiatric: Judgment and insight intact, Alert and oriented x4 Mood and affect: Mood normal, affect appropriate Head and face: Inspection: Normocephalic atraumatic, extraocular movement intact Respiratory: Breathing nonlabored, nondyspneic Cardiovascular: No cyanosis, clubbing, or edema observed Skin: Head and neck: Skin with no lesions or rash observed Gait: Able to walk without assistive device: Able to heel and toe walk Neurologic: Sensation grossly intact per patient Musculoskeletal: Decreased range of motion cervical and lumbar spine noted Assessment:: Degenerative disc disease lumbar spine with lumbar radiculopathy degenerative disc disease cervical spine with cervical radiculopathy, mild fibromyalgia Plan:: We will refill the patient's Blauvelt 10 mg 1 tab p.o. 4 times daily and give her 2 months worth of medication we will see her back in 3 months she can sampler pickup 1/3-month in the interim. She is been instructed to contact the clinic if she has any issues prior to her next appointment. This encounter was performed as a telemedicine visit via secure 2 way video and audio to minimize risk and transmission of Covid-19. The patient and we understand the limitations of a telemedicine visit including inability to check reflexes, possibly missing subtle findings on physical exam. Alternative options were presented to the patient and the patient elected to proceed with the visit. We specifically discussed risk factors for Covid-19 including age, heart or lung disease, diabetes, immunosuppression and travel. We also discussed that NSAIDs may worsen Covid-19 infection symptoms and that they should not be used to treat Covid-19 symptoms. Patient was also informed that corticosteroids in any form oral or injectable will decrease immune response and may increase risk of Covid-[address] Salas has reviewed this patient's chart and this note and agrees with plan of care. Patient has been instructed to call the office if they have any issues prior to the next appointment. Patient has been prescribed a controlled substance after being counseled on the medication, medication safety, and poss
== END ==
PROVIDERS: Visit Provider Clinical Nurse Specialist Family Health
DX: M51.16 Intervertebral disc disorders with radiculopathy, lumbar region (principal); M50.10 Cervical disc disorder with radiculopathy, unspecified cervical region; M79.7 Fibromyalgia
CPT/HCPCS: 99212

== ENCOUNTER → 2019-11-04 11:39 | Outpatient (POV) | payer BC, SELFPAY ==
[2019-11-04 12:25] VITALS: BP 146/85; PULSE 85; RESP 18; TEMP 36.8; O2SAT 98; BMI 32.5
--- NOTE | 2019-11-04 12:57 | HMH.PAINSOAP ---
[facility] Pain Management SOAP Note Subjective:: Patient is a pleasant 49-year-old white female who presents today for medication refills. She is being treated for pain secondary to degenerative disc disease cervical spine with cervical radiculopathy symptoms, fibromyalgia and degenerative disc disease lumbar spine lumbar radiculopathy symptoms. She rates her pain today at 3 out of 10. She is managed with Culver 10 mg 1 tab p.o. 4 times daily. She denies any side effects to this medication. Yaneli #[id number] reviewed and appropriate. Urine drug screens have been appropriate. ROS General: no recent weight change, no fever, no sleep disturbances Respiratory: no cough, no shortness of air, no recurring pulmonary infections Cardiovascular/Peripheral Vascular: No chest pain, No palpitations, no edema, no shortness of breath. Gastrointestinal: no new onset incontinence, normal bowel movements reported Genitourinary: no new onset incontinence Musculoskeletal: Neck pain, back pain Psychiatric: normal mood/ affect Neurological: [denies new onset weakness in extremities], [denies new onset balance issues] Objective:: Physical Exam General: Alert and oriented x3, no acute distress, pleasant and cooperative, [on room air] Lungs: Resps E/U, Symmetrical chest expansion, Eyes: PERRL Musculoskeletal: Flexion and extension of lumbar and cervical spine somewhat guarded secondary to pain, deep tendon reflexes normal, strength in upper and lower extremities [5/5], slightly antalgic gait noted Neurological: speech clear, manifold operator equal, no gross sensory deficits Assessment:: Degenerative disc disease cervical spine cervical radiculopathy, fibromyalgia degenerative disc disease lumbar spine with lumbar radiculopathy Plan:: We will continue her Culver 10 mg 1 tab p.o. 4 times daily. We will follow-up with her in 3 months reassess her symptoms at that time she has been instructed to call the office if she has any issues prior to her next appointment. Patient has been prescribed a controlled substance after being counseled on the medication, medication safety, and possible side effects. YANELI report has been obtained and reviewed prior to prescription and found to be appropriate. Opioid contract was reviewed and signed by the patient, and that they have agreed to all of the terms set forth by our compliance program. Dr. Salas has reviewed this note and agrees with this plan of care. This note was dictated using voice recognition software and may contain errors or omissions [facility] History I have reviewed the patient's past medical history: Yes *Have you ever received a pneumonia vaccine?: Yes *Have you received a flu vaccine this season?: Yes - *Social History *Occupational Status:: other *Travel in the last 8 weeks: None Family Hx:: Unable to obtain
== END ==
PROVIDERS: PCP Nurse Practitioner Family; Visit Provider Clinical Nurse Specialist Family Health
DX: M50.10 Cervical disc disorder with radiculopathy, unspecified cervical region (principal); M79.7 Fibromyalgia; M51.16 Intervertebral disc disorders with radiculopathy, lumbar region
CPT/HCPCS: 99212

== ENCOUNTER → 2020-02-03 09:25 | Outpatient (POV) | payer BC, SELFPAY ==
--- NOTE | 2020-02-03 10:10 | P.CONS_ITS ---
[facility] Pain Management SOAP Note Subjective:: Patient is a pleasant 49-year-old white female presents today for medication refills. She is being treated for pain secondary to degenerative disc disease cervical spine with cervical radiculopathy symptoms, fibromyalgia and degenerative disc disease lumbar spine lumbar radiculopathy symptoms. She rates her pain today 3 out of 10 which is her baseline. She is managed with [place] 10 mg 1 tab p.o. 4 times daily. She denies side effects from medication. Ti #[id number] reviewed and appropriate. Patient's morphine equivalent is 40. For extremes of been appropriate. ROS General: no recent weight change, no fever, no sleep disturbances Respiratory: no cough, no shortness of air, no recurring pulmonary infections Cardiovascular/Peripheral Vascular: No chest pain, No palpitations, no edema, no shortness of breath. Gastrointestinal: no new onset incontinence, normal bowel movements reported Genitourinary: no new onset incontinence Musculoskeletal: Neck pain, back pain Psychiatric: normal mood/ affect Neurological: [denies new onset weakness in extremities], [denies new onset bal ance issues] Objective:: Physical Exam General: Alert and oriented x3, no acute distress, pleasant and cooperative, [on room air] Lungs: Resps E/U, Symmetrical chest expansion, Eyes: PERRL Musculoskeletal: Flexion and extension of cervical and lumbar spine somewhat guarded secondary to pain, deep tendon reflexes normal, strength in upper and lower extremities [5/5], normal gait noted Neurological: speech clear, web applications architect equal, no gross sensory deficits Assessment:: Degenerative disc disease cervical spine with cervical radiculopathy, fibromyalgia, degenerative disc disease lumbar spine lumbar radiculopathy Plan:: We will continue her [place] 10 mg 1 tab p.o. 4 times daily we will follow-up with her in 3 months reassess her symptoms at that time she has been instructed to call the office if she has any issues prior to next appointment. Dr. Salas has reviewed this note and agrees with this plan of care. This note was dictated using voice recognition software and may contain errors or omissions Patient has been prescribed a controlled substance after being counseled on the medication, medication safety, and possible side effects. [facility] report has been obtained and reviewed prior to prescription and found to be appropriate. Opioid contract was reviewed and signed by the patient, and that they have agreed to all of the terms set forth by our compliance program. [facility] History I have reviewed the patient's past medical history: Yes *Have you ever received a pneumonia vaccine?: Yes *Have you received a flu vaccine this season?: Yes - *Social History *Occupational Status:: other *Travel in the last 8 weeks: None Family Hx:: Unable to obtain
[2020-02-03 10:13] VITALS: BP 131/84; PULSE 89; RESP 20; TEMP 36.7; O2SAT 98; BMI 32.8
== END ==
PROVIDERS: Visit Provider Clinical Nurse Specialist Family Health
DX: M50.10 Cervical disc disorder with radiculopathy, unspecified cervical region (principal); M79.7 Fibromyalgia; M51.16 Intervertebral disc disorders with radiculopathy, lumbar region
CPT/HCPCS: 99212

== ENCOUNTER → 2020-04-23 09:38 | Outpatient (POV) | payer OTHER, SELFPAY ==
--- NOTE | 2020-04-23 10:08 | P.CONS_ITS ---
[facility] Pain Management SOAP Note Subjective:: Pleasant 49-year-old white female who presents today for medication refills she is being treated for pain secondary to degenerative disc disease cervical spine with cervical radiculopathy symptoms, fibromyalgia, degenerative disc disease lumbar spine with lumbar radiculopathy. She is managed with [place] 10 mg 1 p.o. 4 times daily she denies side effects to her medication she rates her pain a 5 out of 10. Patient's morphine equivalent is 40. Patient's drug screens have been appropriate. [facility] #[id number] reviewed and appropriate. ROS General: no recent weight change, no fever, no sleep disturbances Respiratory: no cough, no shortness of air, no recurring pulmonary infections Cardiovascular/Peripheral Vascular: No chest pain, No palpitations, no edema, no shortness of breath. Gastrointestinal: no new onset incontinence, normal bowel movements reported Genitourinary: no new onset incontinence Musculoskeletal: Back pain, leg pain Psychiatric: normal mood/ affect Neurological: [denies new onset weakness in extremities], [denies new onset balance issues] Objective:: Physical Exam General: Alert and oriented x3, no acute distress, pleasant and cooperative, [on room air] Lungs: Resps E/U, Symmetrical chest expansion, Eyes: PERRL Musculoskeletal: Flexion and extension of cervical and lumbar spine somewhat guarded secondary to pain, deep tendon reflexes normal, strength in upper and lower extremities [5/5], slightly antalgic gait noted Neurological: speech clear, business unit director equal, no gross sensory deficits Assessment:: Degenerative disc disease cervical spine with cervical radiculopathy, degenerative disc disease lumbar spine with lumbar radiculopathy, fibromyalgia Plan:: We will continue her [place] 10 mg 1 tab p.o. 4 times daily will follow up with her in 3 months reassess her symptoms at that time she has been instructed to call the office if she has any issues prior to her next appointment. Dr. Salas has reviewed this note and agrees with this plan of care. This note was dicta sabas using voice recognition software and may contain errors or omissions Patient has been prescribed a controlled substance after being counseled on the medication, medication safety, and possible side effects. [facility] report has been obtained and reviewed prior to prescription and found to be appropriate. Opioid contract was reviewed and signed by the patient, and that they have agreed to all of the terms set forth by our compliance program. [facility] History I have reviewed the patient's past medical history: Yes *Have you ever received a pneumonia vaccine?: No *Have you received a flu vaccine this season?: No - *Social History *Occupational Status:: employed *Travel in the last 8 weeks: None Family Hx:: Unable to obtain
[2020-04-23 10:22] VITALS: BP 133/79; PULSE 74; RESP 18; TEMP 36.8; O2SAT 98; BMI 32.5
== END ==
PROVIDERS: PCP Nurse Practitioner Family; Visit Provider Clinical Nurse Specialist Family Health
DX: M50.10 Cervical disc disorder with radiculopathy, unspecified cervical region (principal); M51.16 Intervertebral disc disorders with radiculopathy, lumbar region
CPT/HCPCS: 99212; G0463

== ENCOUNTER → 2020-07-20 09:37 | Outpatient (POV) | payer OTHER, SELFPAY ==
--- NOTE | 2020-07-20 09:53 | HMH.PAINSOAP ---
[facility] Pain Management SOAP Note Subjective:: Pleasant 50-year-old white female who presents today for medication refill she is being treated for pain secondary to degenerative disc disease cervical spine with cervical radiculopathy symptoms, fibromyalgia, degenerative disc disease lumbar spine with lumbar radiculopathy symptoms. She is managed with [place] 10 mg 1 p.o. 4 times daily. She denies side effects to her medication. She rates her pain today a 2 out of 10 overall doing extremely well her morphine equivalent is 40. Patient's drug screens have been appropriate. [facility] #[id number] reviewed and appropriate. ROS General: no recent weight change, no fever, no sleep disturbances Respiratory: no cough, no shortness of air, no recurring pulmonary infections Cardiovascular/Peripheral Vascular: No chest pain, No palpitations, no edema, no shortness of breath. Gastrointestinal: no new onset incontinence, normal bowel movements reported Genitourinary: no new onset incontinence Musculoskeletal: Back pain Psychiatric: normal mood/ affect Neurological: [denies new onset weakness in extremities], [denies new onset balance issues] Objective:: Physical Exam General: Alert and oriented x3, no acute distress, pleasant and cooperative, [on room air] Lungs: Resps E/U, Symmetrical chest expansion, Eyes: PERRL Musculoskeletal: Flexion and extension of lumbar and cervical spine somewhat guarded secondary to pain, deep tendon reflexes normal, strength in upper and lower extremities [5/5], [abnormal gait noted] Neurological: speech clear, group fitness department head equal, no gross sensory deficits Assessment:: Degenerative disc disease cervical spine cervical radiculopathy, degenerative disc disease lumbar spine with lumbar radiculopathy and fibromyalgia Plan:: We will continue her [place] 10 mg 1 tab p.o. 4 times daily we will follow up with her in 3 months reassess her symptoms at that time she has been instructed to call the office if she has any issues prior to her next appointment. Dr. Salas has reviewed this note and agrees with this plan of care. This note was dictated using voice recognition software and may contain errors or omissions Patient has been prescribed a controlled substance after being counseled on the medication, medication safety, and possible side effects. [facility] report has been obtained and reviewed prior to prescription and found to be appropriate. Opioid contract was reviewed and signed by the patient, and that they have agreed to all of the terms set forth by our compliance program. [facility] History I have reviewed the patient's past medical history: Yes *Have you ever received a pneumonia vaccine?: Yes *Have you received a flu vaccine this season?: Yes - *Social History *Occupational Status:: employed *Travel in the last 8 weeks: None Family Hx:: Unable to obtain
[2020-07-20 10:01] VITALS: BP 128/74; PULSE 74; RESP 18; O2SAT 98; BMI 32.3
== END ==
PROVIDERS: Visit Provider Clinical Nurse Specialist Family Health
DX: M50.10 Cervical disc disorder with radiculopathy, unspecified cervical region (principal); M51.16 Intervertebral disc disorders with radiculopathy, lumbar region; M79.18 Myalgia, other site
CPT/HCPCS: 99212; G0463

== ENCOUNTER → 2020-10-19 09:58 | Outpatient (POV) | payer OTHER, SELFPAY ==
[2020-10-19 10:04] VITALS: BP 163/91; PULSE 82; RESP 18; O2SAT 99; BMI 32.9
--- NOTE | 2020-10-19 11:19 | P.CONS_ITS ---
[facility] Pain Management SOAP Note Subjective:: Patient is a 50-year-old white female who presents today for follow-up and for medication refills. The patient has been treated for degenerative disc disease cervical spine with cervical radiculopathy symptoms, fibromyalgia as well as degenerative disc disease lumbar spine with lumbar radiculopathy type symptoms. Patient says she is doing well overall with her medication regimen. She gets up to 70% relief with her medicines. She is managed with [place] 10 mg 1 tablet p.o. 4 times daily. Patient denies any side effects to these medications. Her Ti #[id number] has been reviewed and is appropriate. Morphine equivalent is 40. Patient says she is able to work and function better with the medication. She does work full-time. She continues with home stretching as well. Review of Systems General: No recent weight changes, no fever, no sleep disturbances Respiratory: No cough, [no shortness of air], no recurring pulmonary infections Cardiovascular/peripheral vascular: No chest pain, no palpitations, [no edema], no shortness of breath Gastrointestinal: No new onset incontinence, normal bowel movements reported Genitourinary: No new onset incontinence Musculoskeletal: [] Chronic low back pain, chronic neck pain Psychiatric: [Normal mood/affect] Neurological: [Denies weakness in extremities], [denies balance issues] Objective:: Physical exam General: Alert and oriented x3, no acute distress, pleasant and cooperative, [on room air] Lungs: Respirations even and unlabored, symmetrical chest expansion Eyes: PERRL Musculoskeletal: Flexion and extension of [] cervical and lumbar [spine] somewhat guarded secondary to pain, strength in upper and lower extremities [5/5], [antalgic gait noted] Neurological: Speech clear, [head sugar reprocess operator equal], no gross sensory deficit Assessment:: Degenerative disc disease cervical lumbar spine with cervical and lumbar radiculopathy symptoms, fibromyalgia Plan:: We will continue patient on [place] 10 mg 1 tablet p.o. 4 times daily. We will give her a month medication see her back in the clinic in 1 month for reevaluation of symptoms. Patient has been instructed to contact clinic if she has any concerns before next appointment. Risks and benefits of the medication have been explained in detail to the patient. The patient has been advised to consult with his/her primary care provider and pharmacist regarding drug-drug interaction of medications currently prescribed. Patient has been instructed to contact the clinic with any concerns before the next appointment. Dr. Salas has reviewed this note and agrees with this plan of care. This note was dictated using voice recognition software and make contain errors or omissions. [facility] History I have reviewed the patient's past medical history: Yes *Have you ever received a pneumonia vaccine?: No *Have you received a flu vaccine this season?: No - *Social History Smoking Status: Never smoker Alcohol Intake: never *Occupational Status:: unemployed *Travel in the last 8 weeks: None Family Hx:: Unable to obtain
== END ==
PROVIDERS: Visit Provider Clinical Nurse Specialist Family Health
DX: M51.16 Intervertebral disc disorders with radiculopathy, lumbar region (principal); M50.10 Cervical disc disorder with radiculopathy, unspecified cervical region; M79.7 Fibromyalgia
CPT/HCPCS: 99212; G0463

== ENCOUNTER → 2020-11-19 10:14 | Outpatient (POV) | payer OTHER, SELFPAY ==
[2020-11-19 10:36] VITALS: BP 130/82; PULSE 72; RESP 18; O2SAT 99; BMI 32.4
--- NOTE | 2020-11-19 12:14 | P.CONS_ITS ---
[facility] Pain Management SOAP Note Subjective:: Patient is a 50-year-old white female who presents today for follow-up and medication refills. She has been treated for degenerative disc disease cervical spine with cervical radiculopathy symptoms. Her pain is a 3 out of 10 at this time. She does get [place] 10 mg 1 tablet p.o. 4 times daily and does well with medication. She denies any side effects to the medication. [facility] #[id number] has been reviewed and is appropriate. Patient's last drug screen was appropriate. She will need to undergo a repeat drug screen at her next visit. Review of Systems General: No recent weight changes, no fever, no sleep disturbances Respiratory: No cough, no shortness of air, no recurring pulmonary infections Cardiovascular/peripheral vascular: No chest pain, no palpitations, no edema, no shortness of breath Gastrointestinal: No new onset incontinence, normal bowel movements reported Genitourinary: No new onset incontinence Musculoskeletal: Chronic neck pain Psychiatric: [Normal mood/affect] Neurological: [Denies weakness in extremities], [denies balance issues] Objective:: Physical exam General: Alert and oriented x3, no acute distress, pleasant and cooperative, [on room air] Lungs: Respirations even and unlabored, symmetrical chest expansion Eyes: PERRL Musculoskeletal: Flexion and extension of cervical [spine] somewhat guarded secondary to pain, strength in upper and lower extremities [5/5], normal gait noted Neurological: Speech clear, [dietetic intern equal], no gross sensory deficit Assessment:: Degenerative disc disease cervical spine with cervical radiculopathy symptoms Plan:: We will refill the patient's [place] 10 mg 1 tablet p.o. 4 times daily. We will give the patient a month medication see her back in the clinic in 1 month for reevaluation of symptoms. Risks and benefits of the medication have been explained in detail to the patient. The patient has been advised to consult with his/her primary care provider and pharmacist regarding drug-drug interaction of medications currently prescribed. Patient has been prescribed a controlled substance after being counseled on the medication, medication safety, and possible side effects. [facility] report has been obtained and reviewed prior to prescription and found to be appropriate. Opioid contract was reviewed and signed by the patient, and that they have agreed to all of the terms set forth by our compliance program. Patient has been i nstructed to contact the clinic with any concerns before the next appointment. Dr. Salas has reviewed this note and agrees with this plan of care. This note was dictated using voice recognition software and make contain errors or omissions. [facility] History I have reviewed the patient's past medical history: Yes *Have you ever received a pneumonia vaccine?: No *Have you received a flu vaccine this season?: No - *Social History Smoking Status: Never smoker Alcohol Intake: never *Occupational Status:: employed *Travel in the last 8 weeks: None Family Hx:: Unable to obtain
== END ==
PROVIDERS: Visit Provider Clinical Nurse Specialist Family Health
DX: M50.10 Cervical disc disorder with radiculopathy, unspecified cervical region (principal)
CPT/HCPCS: 99212; G0463

== ENCOUNTER → 2020-12-17 09:02 | Outpatient (POV) | payer OTHER, SELFPAY ==
[2020-12-17 09:16] VITALS: BP 153/80; PULSE 94; RESP 18; O2SAT 99; BMI 32.9
--- NOTE | 2020-12-17 09:23 | HMH.PAINSOAP ---
[facility] Pain Management SOAP Note Subjective:: Patient is a 50-year-old white female who presents today for follow-up. She has been treated for degenerative disc disease cervical spine with cervical radicular symptoms. Patient says she is currently having severe TMJ. She recently had wires removed from her braces. She is having jaw pain. We discussed trying diclofenac to ease the pain. She is having pain in her neck area which is chronic in nature. Today, at rest, her pain is a 3 out of 10. She is managed with [place] 10 mg 1 tablet p.o. 4 times daily. The medication is working well for her. She does undergo injective therapy routinely as well. She does not need any injective therapy at this time. She is here for medication refill. Patient's Yaneli #[id number] has been reviewed and is appropriate. Drug screen is appropriate. Morphine equivalent is 40. Review of Systems General: No recent weight changes, no fever, no sleep disturbances Respiratory: No cough, no shortness of air, no recurring pulmonary infections Cardiovascular/peripheral vascular: No chest pain, no palpitations, no edema, no shortness of breath Gastrointestinal: No new onset incontinence, normal bowel movements reported Genitourinary: No new onset incontinence Musculoskeletal: Neck pain, jaw pain Psychiatric: [Normal mood/affect] Neurological: [Denies weakness in extremities], [denies balance issues] Objective:: Physical exam General: Alert and oriented x3, no acute distress, pleasant and cooperative, [on room air] Lungs: Respirations even and unlabored, symmetrical chest expansion Eyes: PERRL Musculoskeletal: Flexion and extension of cervical [spine] somewhat guarded secondary to pain, strength in upper and lower extremities [5/5], normal gait noted Neurological: Speech clear, [landscape architect and planner equal], no gross sensory deficit Assessment:: Degenerative disc disease cervical spine with cervical radiculopathy symptoms, TMJ Plan:: We will refill the patient's [place] 10 mg 1 tablet 4 times daily. We will start the patient on diclofenac 75 mg 1 tablet p.o. twice daily. We will order the patient compounding cream to apply topical pain to her cervical spine area as well. We will give the patient a month medication and see her back in the clinic in 1 month for reevaluation of symptoms. Risks and benefits of the medication have been explained in detail to the patient. The patient has been advised to consult with his/her primary care provider and pharmacist regarding drug-drug interaction of medications currently prescribed. Patient has been prescribed a controlled substance after being counseled on the medication, medication safety, and possible side effects. [facility] report has been obtained and reviewed prior to prescription and found to be appropriate. Opioid contract was reviewed and signed by the patient, and that they have agreed to all of the terms set forth by our compliance program. Patient has been instructed to contact the clinic with any concerns before the next appointment. Dr. Salas has reviewed this note and agrees with this plan of care. This note was dictated using voice recognition software and make contain errors or omissions. [facility] History I have reviewed the patient's past medical history: Yes *Have you ever received a pneumonia vaccine?: No *Have you received a flu vaccine this season?: No - *Social History Smoking Status: Never smoker Alcohol Intake: never *Occupational Status:: unemployed *Travel in the last 8 weeks: None Family Hx:: Unable to obtain
[2020-12-17 11:41] LABS: Amphetamine/Metha Screen,Urine Negative ng/ml (<1000); Barbiturates Screen,Urine Negative ng/ml (<200)
[2020-12-17 11:42] LABS: Benzodiazepines Screen,Urine Negative ng/ml (<200); Cocaine Screen,Urine Negative ng/ml (<300)
[2020-12-17 11:43] LABS: Methadone Screen,Urine Negative ng/ml (<300)
[2020-12-17 11:44] LABS: Cannabinoid Screen,Urine Negative ng/ml (<50); Opiate Screen,Urine Positive ng/ml (<300)
[2020-12-17 11:45] LABS: Phencyclidine Screen,Urine Negative ng/ml (<25)
== END ==
PROVIDERS: PCP Family Medicine; Visit Provider Clinical Nurse Specialist Family Health
DX: M50.10 Cervical disc disorder with radiculopathy, unspecified cervical region (principal); M26.609 Unspecified temporomandibular joint disorder, unspecified side
CPT/HCPCS: 80305; 99212; G0463

== ENCOUNTER → 2021-01-14 09:19 | Outpatient (POV) | payer OTHER, SELFPAY ==
[2021-01-14 09:27] VITALS: BP 177/90; PULSE 91; RESP 18; O2SAT 98; BMI 32.3
--- NOTE | 2021-01-14 09:38 | HMH.PAINSOAP ---
[facility] Pain Management SOAP Note Subjective:: Patient is a 50-year-old white female who presents today for medication refills. Patient reports that her medication is working well for her low back pain, however she is having frequent headaches and is having significant anxiety. She says that she feels anxious and feels as though she is hormonal. She does have a blood pressure 170s over 100s today. We did discuss going to the emergency room versus urgent treatment centers for her pain. She does not feel that the pain is significant to go to the emergency room at this time. Patient has not followed up with her primary care provider recently. She reports to generally have a low blood pressure. She is managed in the clinic with [place] 10 mg 1 tablet p.o. 4 times daily. She does rate her pain a 2 out of 10. Review of Systems General: No recent weight changes, no fever, no sleep disturbances Respiratory: No cough, no shortness of air, no recurring pulmonary infections Cardiovascular/peripheral vascular: No chest pain, no palpitations, no edema, no shortness of breath Gastrointestinal: No new onset incontinence, normal bowel movements reported Genitourinary: No new onset incontinence Musculoskeletal: Chronic low back pain with radiation into lower extremities, chronic neck pain Psychiatric: [Normal mood/affect] Neurological: [Denies weakness in extremities], [denies balance issues], headaches Objective:: Physical exam General: Alert and oriented x3, no acute distress, pleasant and cooperative Lungs: Respirations even and unlabored, symmetrical chest expansion Eyes: PERRL Musculoskeletal: Flexion and extension of cervical and lumbar [spine] somewhat guarded secondary to pain, [antalgic gait noted] Neurological: Speech clear, no gross sensory deficit Assessment:: Degenerative disc disease cervical and cervical radiculopathy symptoms, TMJ Plan:: Patient I did discuss going to the emergency room versus her primary care provider. She will contact her primary care provider today regarding her elevated blood pressure and headaches. We will continue the patient on her [place] 10 mg 1 tablet p.o. 4 times daily. We will see her back in the clinic in 1 month for reevaluation of symptoms. Again, I have advised the patient to contact her primary care provider since she does not feel comfortable going to the urgent treatment center or ER today. She is in agreement. Risks and benefits of the medication have been explained in detail to the patient. The patient does understand the risk of dependence on the medication when given over a prolonged period. Patient has been advised of risks of oversedation with the prescribed medication. Narcan has been offered to the paitent in the event of oversedation. Patient has been advised that a family member should also be educated regarding administration of Narcan. The patient has been advised to consult with his/her primary care provider and pharmacist regarding drug-drug interaction of medications currently prescribed. Patient has been prescribed a controlled substance after being counseled on the medication, medication safety, and possible side effects. [facility] report has been obtained and reviewed prior to prescription and found to be appropriate. Opioid contract was reviewed and signed by the patient, and that they have agreed to all of the terms set forth by our compliance program. Patient has been instructed to contact the clinic with any concerns before the next appointment. Dr. Salas has reviewed this note and agrees with this plan of care. This note was dictated using voice recognition software and make contain errors or omissions. [facility] History I have reviewed the patient's past medical history: Yes *Have you ever received a pneumonia vaccine?: No *Have you received a flu vaccine this season?: No - *Social History Smoking Status: Never smoker Alcohol Intake: never *Occupati
== END ==
PROVIDERS: Visit Provider Clinical Nurse Specialist Family Health
DX: M50.10 Cervical disc disorder with radiculopathy, unspecified cervical region (principal); M26.609 Unspecified temporomandibular joint disorder, unspecified side
CPT/HCPCS: 99212; G0463

== ENCOUNTER → 2021-02-15 09:25 | Outpatient (POV) | payer OTHER, SELFPAY ==
[2021-02-15 09:33] VITALS: BP 181/87; PULSE 87; RESP 18; O2SAT 99; BMI 32.5
--- NOTE | 2021-02-15 09:35 | P.CONS_ITS ---
[facility] Pain Management SOAP Note Subjective:: Patient is a 50-year-old white female who presents today for medication refills. We do manage the patient with [place] 10 mg 1 tablet p.o. 4 times daily. She is doing well with the medication. She says it gives her up to 60% relief. She does rate her pain a 3 out of 10. Yaneli #[id number] has been reviewed and is appropriate. Patient's morphine equivalent is 40. She says that the medication does enable her to continue to work. She says it does manage her neck pain as well as pain for TMJ. She was prescribed compounding cream and says that this is working very well for her as well. Review of Systems General: No recent weight changes, no fever, no sleep disturbances Respiratory: No cough, no shortness of air, no recurring pulmonary infections Cardiovascular/peripheral vascular: No chest pain, no palpitations, no edema, no shortness of breath Gastrointestinal: No new onset incontinence, normal bowel movements reported Genitourinary: No new onset incontinence Musculoskeletal: Neck pain with jaw pain intermittent Psychiatric: [Normal mood/affect] Neurological: [Denies weakness in extremities], [denies balance issues] Objective:: Physical exam General: Alert and oriented x3, no acute distress, pleasant and cooperative Lungs: Respirations even and unlabored, symmetrical chest expansion Eyes: PERRL Musculoskeletal: Flexion and extension of cervical [spine] somewhat guarded secondary to pain, normal gait noted Neurological: Speech clear, no gross sensory deficit Assessment:: Degenerative disc disease cervical spine with cervical radiculopathy symptoms, TMJ Plan:: The patient is doing well with her medication regimen. She is also doing well with the compounding cream. She does have a morphine equivalent of 40. We will order Narcan for the patient to have available in the event of oversedation. We will continue the patient on [place] 10 mg 1 tablet p.o. 4 times daily. We will see the patient back in 1 month. Risks and benefits of the medication have been explained in detail to the patient. The patient does understand the risk of dependence on the medication when given over a prolonged period. Patient has been advised of risks of oversedation with the prescribed m edication. Narcan has been offered to the paitent in the event of oversedation. Patient has been advised that a family member should also be educated regarding administration of Narcan. The patient has been advised to consult with his/her primary care provider and pharmacist regarding drug-drug interaction of medications currently prescribed. Patient has been prescribed a controlled substance after being counseled on the medication, medication safety, and possible side effects. YANELI report has been obtained and reviewed prior to prescription and found to be appropriate. Opioid contract was reviewed and signed by the patient, and that they have agreed to all of the terms set forth by our compliance program. Patient has been instructed to contact the clinic with any concerns before the next appointment. Dr. Salas has reviewed this note and agrees with this plan of care. This note was dictated using voice recognition software and make contain errors or omissions. [facility] History I have reviewed the patient's past medical history: Yes *Have you ever received a pneumonia vaccine?: No *Have you received a flu vaccine this season?: No - *Social History Smoking Status: Never smoker Alcohol Intake: never *Occupational Status:: employed *Travel in the last 8 weeks: None Family Hx:: Un
== END ==
PROVIDERS: Visit Provider Clinical Nurse Specialist Family Health
DX: M50.10 Cervical disc disorder with radiculopathy, unspecified cervical region (principal); M26.609 Unspecified temporomandibular joint disorder, unspecified side
CPT/HCPCS: 99212; G0463

== ENCOUNTER → 2021-03-16 10:45 | Outpatient (POV) | payer OTHER, SELFPAY ==
[2021-03-16 10:58] VITALS: BP 168/90; PULSE 86; RESP 18; O2SAT 99; BMI 32.9
--- NOTE | 2021-03-16 11:40 | HMH.PAINSOAP ---
[facility] Pain Management SOAP Note Subjective:: Patient is a 50-year-old white female who presents today for medication refills. She is doing well overall with her medication regimen. She gets [place] 10 mg 1 tablet p.o. 4 times daily. This manages the patient's chronic neck pain and TMJ pain. The patient is diabetic and does report to be having significant foot pain at this time. She says that she was in a casted boot in the past due to an Achilles issue though uncertain what specific complication she had. She is complaining of severe pain and stiffness in bilateral lower extremities made worse with prolonged sitting. She has not seen podiatry. She does rate her pain a 3 out of 10 with her medication regimen for her neck and TMJ pain. Review of Systems General: No recent weight changes, no fever, no sleep disturbances Respiratory: No cough, no shortness of air, no recurring pulmonary infections Cardiovascular/peripheral vascular: No chest pain, no palpitations, no edema, no shortness of breath Gastrointestinal: No new onset incontinence, normal bowel movements reported Genitourinary: No new onset incontinence Musculoskeletal: Bilateral foot pain with stiffness, pain made worse with prolonged sitting Psychiatric: [Normal mood/affect] Neurological: [Denies weakness in extremities], [denies balance issues] Objective:: Physical exam General: Alert and oriented x3, no acute distress, pleasant and cooperative Lungs: Respirations even and unlabored, symmetrical chest expansion Eyes: PERRL Musculoskeletal: Flexion and extension of cervical [spine] somewhat guarded secondary to pain, normal gait noted Neurological: Speech clear, no gross sensory deficit Assessment:: Degenerative disc disease cervical spine with cervical radicular symptoms, TMJ, bilateral foot pain Plan:: We will schedule the patient for a referral with Dr. hSeridan for worsening foot pain. Patient is diabetic We will continue the patient's [place] 10 mg 1 tablet p.o. 4 times daily. [facility] #[id number] has been reviewed and is appropriate. Drug screen is appropriate. Morphine equivalent is 40. Risks and benefits of the medication have been explained in detail to the patient. The patient does understand the risk of dependence on the medication when given over a prolonged period. Patient has been advised of risks of oversedation with the prescribed medication. Narcan has been offered to the paitent in the event of oversedation. Patient has been advised that a family member should also be educated regarding administration of Narcan. The patient has been advised to consult with his/her primary care provider and pharmacist regarding drug-drug interaction of medications currently prescribed. Patient has been prescribed a controlled substance after being counseled on the medication, medication safety, and possible side effects. YANELI report has been obtained and reviewed prior to prescription and found to be appropriate. Opioid contract was reviewed and signed by the patient, and that they have agreed to all of the terms set forth by our compliance program. Patient has been instructed to contact the clinic with any concerns before the next appointment. Dr. Salas has reviewed this note and agrees with this plan of care. This note was dictated using voice recognition software and make contain errors or omissions. [facility] History *Have you ever received a pneumonia vaccine?: No *Have you received a flu vaccine this season?: No - *Social History Smoking Status: Never smoker Alcohol Intake: never *Occupational Status:: employed *Travel in the last 8 weeks: None Family Hx:: Unable to obtain
[2021-03-16 14:13] LABS: Amphetamine/Metha Screen,Urine Negative ng/ml (<1000); Barbiturates Screen,Urine Negative ng/ml (<200)
[2021-03-16 14:14] LABS: Benzodiazepines Screen,Urine Negative ng/ml (<200)
[2021-03-16 14:15] LABS: Cannabinoid Screen,Urine Negative ng/ml (<50); Cocaine Screen,Urine Negative ng/ml (<300)
[2021-03-16 14:16] LABS: Methadone Screen,Urine Negative ng/ml (<300)
[2021-03-16 14:17] LABS: Opiate Screen,Urine Positive ng/ml (<300); Phencyclidine Screen,Urine Negative ng/ml (<25)
[2021-03-30 10:10] LABS: Codeine Negative (Cutoff=100); Hydrocodone Positive (.); Hydromorphone Positive (.); Morphine Negative (Cutoff=100); Opiates Positive (.)
== END ==
PROVIDERS: Visit Provider Clinical Nurse Specialist Family Health
DX: M50.10 Cervical disc disorder with radiculopathy, unspecified cervical region (principal); M26.609 Unspecified temporomandibular joint disorder, unspecified side; M79.671 Pain in right foot; M79.672 Pain in left foot
CPT/HCPCS: 80305; 80361; 80365; 99212; G0463; G0480

== ENCOUNTER → 2021-04-20 09:18 | Outpatient (POV) | payer OTHER, SELFPAY ==
[2021-04-20 09:20] VITALS: BP 154/82; PULSE 76; RESP 20; O2SAT 96; BMI 33.0
--- NOTE | 2021-04-20 09:41 | HMH.PAINSOAP ---
[facility] Pain Management SOAP Note Subjective:: Patient is a 50-year-old white female who presents today for medication refills. She is treated for chronic neck pain. She also has TMJ pain. Patient is diabetic and does have significant foot pain that is chronic in nature. We have referred her to Dr. Sheridan. She has managed in our clinic with [place] 10 mg 1 tablet p.o. 4 times daily. She denies any side effects and is doing well with medication at this time. She rates her pain a 6 out of 10. This is baseline for patient. Yaneli #[id number] has been reviewed and is appropriate. Drug screen is appropriate. Morphine equivalent is 0. Review of Systems General: No recent weight changes, no fever, no sleep disturbances Respiratory: No cough, no shortness of air, no recurring pulmonary infections Cardiovascular/peripheral vascular: No chest pain, no palpitations, no edema, no shortness of breath Gastrointestinal: No new onset incontinence, normal bowel movements reported Genitourinary: No new onset incontinence Musculoskeletal: Neck pain, jaw pain, bilateral foot pain Psychiatric: [Normal mood/affect] Neurological: [Denies weakness in extremities], [denies balance issues] Objective:: Physical exam General: Alert and oriented x3, no acute distress, pleasant and cooperative Lungs: Respirations even and unlabored, symmetrical chest expansion Eyes: PERRL Musculoskeletal: Flexion and extension of cervical [spine] somewhat guarded secondary to pain, normal gait noted at this time Neurological: Speech clear, no gross sensory deficit Assessment:: , Bilateral leg pain, TMJ Plan:: We will continue the patient on [place] 10 mg 1 tablet p.o. 4 times daily. We will give her a month medication and see her back in the clinic in 1 month. Risks and benefits of the medication have been explained in detail to the patient. The patient does understand the risk of dependence on the medication when given over a prolonged period. Patient has been advised of risks of oversedation with the prescribed medication. Narcan has been offered to the paitent in the event of oversedation. Patient has been advised that a family member should also be educated regarding administration of Narcan. The patient has been advised to consult with his/her primary care provider and pharmacist regarding drug-drug interaction of medications currently prescribed. Patient has been prescribed a controlled substance after being counseled on the medication, medication safety, and possible side effects. YANELI report has been obtained and reviewed prior to prescription and found to be appropriate. Opioid contract was reviewed and signed by the patient, and that they have agreed to all of the terms set forth by our compliance program. Patient has been instructed to contact the clinic with any concerns before the next appointment. Dr. Salas has reviewed this note and agrees with this plan of care. This note was dictated using voice recognition software and make contain errors or omissions. [facility] History I have reviewed the patient's past medical history: Yes *Have you ever received a pneumonia vaccine?: No *Have you received a flu vaccine this season?: No - *Social History Smoking Status: Never smoker Alcohol Intake: never *Occupational Status:: employed *Travel in the last 8 weeks: None Family Hx:: Unable to obtain
== END ==
PROVIDERS: Visit Provider Clinical Nurse Specialist Family Health
DX: M79.605 Pain in left leg (principal); M79.604 Pain in right leg; M26.609 Unspecified temporomandibular joint disorder, unspecified side
CPT/HCPCS: 99212; G0463

== ENCOUNTER → 2021-05-20 10:04 | Outpatient (POV) | payer OTHER, SELFPAY ==
[2021-05-20 10:16] VITALS: BP 153/84; PULSE 90; RESP 18; O2SAT 98; BMI 32.8
--- NOTE | 2021-05-20 12:26 | HMH.PAINSOAP ---
[facility] Pain Management SOAP Note Subjective:: Patient is a very pleasant 51-year-old white female who presents today for follow-up and medication refills. She is currently being treated for chronic neck pain associated with degenerative disc disease of the cervical spine as well as TMJ pain. She also is a diabetic and has ongoing foot pain and is followed by Dr. George. We have been managing her for her chronic neck pain and TMJ symptoms and she is prescribed [place] 10 mg 1 tablet p.o. 4 times daily. 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 She rates her pain today is a 2 out of 10. She is requesting refills on her medications today. Objective:: General: Alert and oriented x3, no acute distress, pleasant and cooperative Lungs: Resps E/U, symmetric chest expansion Eyes: PERRL Musculoskeletal: limited flexion and extension of the lumbar spine secondary to pain. Deep tendon reflexes were normal in bilateral lower extremities. Motor exam was grossly intact in the bilateral lower extremities, antalgic gait noted. 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 4 times daily #120 for a 1 month supply. We will follow-up with this patient in 1 month for reassessment of her chronic pain symptoms and medication refills. [facility] #[id number] and prior drug screens were reviewed and appropriate. [facility] History *Have you ever received a pneumonia vaccine?: No *Have you received a flu vaccine this season?: No - *Social History Smoking Status: Never smoker Alcohol Intake: never *Occupational Status:: unemployed *Travel in the last 8 weeks: None Family Hx:: Unable to obtain
== END ==
PROVIDERS: Visit Provider Anesthesiology Pain Medicine
DX: M50.10 Cervical disc disorder with radiculopathy, unspecified cervical region (principal); M26.609 Unspecified temporomandibular joint disorder, unspecified side; M79.673 Pain in unspecified foot; G89.29 Other chronic pain
CPT/HCPCS: 99212; G0463

== ENCOUNTER → 2021-06-17 10:14 | Outpatient (POV) | payer OTHER, SELFPAY ==
[2021-06-17 10:22] VITALS: BP 142/84; PULSE 91; RESP 20; TEMP 36.7; O2SAT 100; BMI 32.3
--- NOTE | 2021-06-17 12:31 | P.CONS_ITS ---
[facility] Pain Management SOAP Note Subjective:: Patient is a pleasant 51-year-old female who is here for medication refill and follow-up. Patient is currently being treated for chronic jaw pain, degenerative disc disease of the cervical spine. Patient is being managed with [place] 10 mg 4 times a day. Patient denies any side effects from the medications. Patient denies any changes to the location and type of pain. Patient states that this is adequately helping manage their pain. Rates pain as 6 out of 10. [facility] number [id number] with an active morphine equivalent 40. Drug screens have been reviewed and appropriate. ORT score is low risk Review of Systems: General: No recent weight changes, no fever, no sleep disturbances Respiratory: No cough, no shortness of air, no recurring pulmonary infections Cardiovascular/peripheral vascular: No chest pain, no palpitations, no edema, no shortness of breath Gastrointestinal: No new onset incontinence, normal bowel movements reported Genitourinary: No new onset incontinence Musculoskeletal: Jaw pain, neck pain Psychiatric: [Normal mood/affect] Neurological: [Denies weakness in extremities], [denies balance issues] Objective:: General: Alert and oriented x3, no acute distress, pleasant and cooperative, [on room air] Lungs: Respirations even and unlabored, symmetrical chest expansion Eyes: PERRL Musculoskeletal: Flexion and extension of cervical [spine] somewhat guarded secondary to pain, left TMJ is tender to palpation especially around the left trigeminal nerve. Neurological: Speech clear, no gross sensory deficit Assessment:: Trigeminal neuralgia Degenerative disc disease cervical spine Plan:: We will continue the patient's [place] 10 mg 4 times a day. We will provide the patient with a month of refills. We would like to see the patient back in a month for follow-up and reevaluation of chronic pain syndrome. Patient has been complaining of left TMJ pain for a long time now. She states that it is hard for her to chew. She has never had any TMJ injections. She also states that she has been having burning/sharp pain around her anterior ear that goes around her temporal head. She is tender to palpation around the trigeminal nerve. We will schedule her for a left trigeminal nerve block. Risks and benefits of the procedure have been explained to the patient. Patient would like to proceed with the procedure. Patient has been advised of risks of oversedation with the prescribed medication. Narcan has been offered to the patient in the event of oversedation. Patient has been advised that a family member should also be educated regarding administration of Narcan. Patient has been instructed to contact the clinic with any concerns before the next appointment. Dr. Salas has reviewed this note and agrees with this plan of care. This note was dictated using voice recognition software and make contain errors or omissions. [facility] History *Have you ever received a pneumonia vaccine?: No *Have you received a flu vaccine this season?: No - *Social History Smoking Status: Never smoker Alcohol Intake: never *Occupational Status:: employed *Travel in the last 8 weeks: None Family Hx:: Unable to obtain
== END ==
PROVIDERS: Visit Provider Student in an Organized Health Care Education/Training Program
DX: G50.0 Trigeminal neuralgia (principal); M50.30 Other cervical disc degeneration, unspecified cervical region
CPT/HCPCS: 99212; G0463

== ENCOUNTER → 2021-07-16 09:51 | Day surgery (SDC) | payer OTHER, SELFPAY ==
[2021-07-16 10:01] VITALS: BP 150/81; PULSE 81; RESP 20; O2SAT 98; BMI 32.5
--- NOTE | 2021-07-16 10:27 | HMH.PAINSOAP ---
[facility] Pain Management SOAP Note Subjective:: This patient is a pleasant 51-year-old white female that comes to our clinic today for follow-up visit and medication refills. She is currently being treated for chronic jaw pain, degenerative disc disease of the cervical spine multiple levels. Some radicular symptoms. Patient is being managed with [place] 10 mg 1 p.o. 4 times daily. Patient denies any side effects from the pain medication. She does report the pain medicine is keeping her pain at a minimum. I discussed the detail with the patient regarding TMJ injection of cortisone. She has discussed this injection in the past. However. She is apprehensive regarding getting the injection. Her Ti #[id number] was reviewed and appropriate. Objective:: Degenerative disc disease cervical spine multilevels. Bilateral facial/jaw pain secondary to TMJ. Assessment:: Patient is awake alert oriented x3. No acute distress. Flexion extension lumbar spine normal. Flexion-extension cervical spine somewhat guarded secondary to pain. Deep tendon reflexes upper and lower extremities normal. Motor strength upper and lower extremities normal. There is no gross sensory deficit. Gait is normal. Plan:: We will approve a refill on her medication. She will return to see us in 1 month. [facility] History *Have you ever received a pneumonia vaccine?: No *Have you received a flu vaccine this season?: No - *Social History Smoking Status: Never smoker Alcohol Intake: never *Occupational Status:: employed *Travel in the last 8 weeks: None Family Hx:: Unable to obtain
== END ==
PROVIDERS: PCP Family Medicine; Visit Provider Nurse Anesthetist, Certified Registered
DX: M50.30 Other cervical disc degeneration, unspecified cervical region (principal); M26.603 Bilateral temporomandibular joint disorder, unspecified
CPT/HCPCS: 99212; G0463

== ENCOUNTER → 2021-08-12 12:56 | Outpatient (POV) | payer OTHER, SELFPAY ==
[2021-08-12 13:19] VITALS: BP 151/85; PULSE 99; RESP 18; TEMP 36.7; O2SAT 97; BMI 32.9
--- NOTE | 2021-08-12 15:00 | P.CONS_ITS ---
[facility] Pain Management SOAP Note Subjective:: Patient is a pleasant 51-year-old female who is here for medication refill and follow-up. Patient is currently being treated for chronic joint pain, degenerative disc disease of the cervical spine multiple levels and radicular symptoms. Patient is being managed with [place] 10 mg 4 times a day. Patient denies any side effects from the medications. Patient denies any changes to the location and type of pain. Patient states that this is adequately helping manage their pain. Rates pain as 4 out of 10. [facility] number [id number] with an active morphine equivalent 40. Drug screens have been reviewed and appropriate. Review of Systems: General: No recent weight changes, no fever, no sleep disturbances Respiratory: No cough, no shortness of air, no recurring pulmonary infections Cardiovascular/peripheral vascular: No chest pain, no palpitations, no edema, no shortness of breath Gastrointestinal: No new onset incontinence, normal bowel movements reported Genitourinary: No new onset incontinence Musculoskeletal: Neck pain, jaw pain Psychiatric: [Normal mood/affect] Neurological: [Denies weakness in extremities], [denies balance issues] Objective:: Physical Exam: General: Alert and oriented x3, no acute distress, pleasant and cooperative Lungs: Respirations even and unlabored, symmetrical chest expansion Eyes: PERRL Musculoskeletal: Flexion and extension of cervical [spine] somewhat guarded secondary to pain, [antalgic gait noted]; Neurological: Speech clear, no gross sensory deficit Assessment:: Degenerative disc disease of the cervical spine, bilateral jaw pain secondary to TMJ Plan:: We will continue the patient's [place] 10 mg 4 times a day. We will provide the patient with 1 month of refills. We would like to see the patient back in 1 month for follow-up and reevaluation of chronic pain syndrome. Patient has been advised of risks of oversedation with the prescribed medication. Narcan has been offered to the patient in the event of oversedation. Patient has been advised that a family member should also be educated regarding administration of Narcan. Patient has been instructed to contact the clinic with any concerns before the next appointment. Dr. Salas has reviewed this note and agrees with this plan of care. This note was dictated using voice recognition software and make contain errors or omissions. [facility] History *Have you ever received a pneumonia vaccine?: No *Have you received a flu vaccine this season?: No - *Social History Smoking Status: Never smoker Alcohol Intake: never *Occupational Status:: employed *Travel in the last 8 weeks: None Family Hx:: Unable to obtain
== END ==
PROVIDERS: Visit Provider Student in an Organized Health Care Education/Training Program
DX: M50.30 Other cervical disc degeneration, unspecified cervical region (principal); M26.603 Bilateral temporomandibular joint disorder, unspecified
CPT/HCPCS: 99212; G0463

== ENCOUNTER → 2021-09-09 13:03 | Outpatient (POV) | payer OTHER, SELFPAY ==
[2021-09-09 13:18] VITALS: BP 137/80; PULSE 94; RESP 18; TEMP 36.6; O2SAT 99; BMI 32.9
--- NOTE | 2021-09-09 15:08 | P.CONS_ITS ---
[facility] Pain Management SOAP Note Subjective:: Patient is a pleasant 51-year-old female who is here for medication refill and follow-up. Patient is currently being treated for chronic joint pain, degenerative disc disease of the cervical spine with multiple levels and radicular symptoms. Patient is being managed with [place] 10 mg 4 times a day. Patricia mojica denies any side effects from the medications. Patient denies any changes to the location and type of pain. Patient states that this is adequately helping manage their pain. Rates pain as 4 out of 10. [facility] number [id number] with an active morphine equivalent 40. Drug screens have been reviewed and appropriate. Review of Systems: General: No recent weight changes, no fever, no sleep disturbances Respiratory: No cough, no shortness of air, no recurring pulmonary infections Cardiovascular/peripheral vascular: No chest pain, no palpitations, no edema, no shortness of breath Gastrointestinal: No new onset incontinence, normal bowel movements reported Genitourinary: No new onset incontinence Musculoskeletal: Low back pain Psychiatric: [Normal mood/affect] Neurological: [Denies weakness in extremities], [denies balance issues] Objective:: Physical Exam: General: Alert and oriented x3, no acute distress, pleasant and cooperative Lungs: Respirations even and unlabored, symmetrical chest expansion Eyes: PERRL Musculoskeletal: Flexion and extension of lumbar [spine] somewhat guarded secondary to pain, [antalgic gait noted] Neurological: Speech clear, no gross sensory deficit Assessment:: Degenerative disc disease of the cervical spine with cervical radiculopathy symptoms, chronic joint pains Plan:: We will continue the patient's [place] 10 mg 4 times a day. We will provide the patient with 1 month of refills. We would like to see the patient back in 1 month for follow-up and reevaluation of chronic pain syndrome. Patient has been advised of risks of oversedation with the prescribed medication. Narcan has been offered to the patient in the event of oversedation. Patient has been advised that a family member should also be educated regarding administration of Narcan. Patient has been instructed to contact the clinic with any concerns before the next appointment. Dr. Salas has reviewed this note and agrees with this plan of care. This note was dictated using voice recognition software and make contain errors or omissions. [facility] History *Have you ever received a pneumonia vaccine?: No *Have you received a flu vaccine this season?: No - *Social History Smoking Status: Never smoker Alcohol Intake: never *Occupational Status:: other *Travel in the last 8 weeks: None Family Hx:: Unable to obtain
== END ==
PROVIDERS: Visit Provider Student in an Organized Health Care Education/Training Program
DX: M50.30 Other cervical disc degeneration, unspecified cervical region (principal); M25.50 Pain in unspecified joint; G89.29 Other chronic pain
CPT/HCPCS: 99212; G0463

== ENCOUNTER → 2021-10-07 12:58 | Outpatient (POV) | payer OTHER, SELFPAY ==
[2021-10-07 13:08] VITALS: BP 139/77; PULSE 78; RESP 18; TEMP 36.6; O2SAT 98; BMI 32.3
--- NOTE | 2021-10-07 13:19 | HMH.PAINSOAP ---
[facility] Pain Management SOAP Note Subjective:: Patient is a pleasant 51-year-old female who is here for follow-up and medication refill. Patient is currently being treated for chronic joint pain, degenerative disc disease of cervical spine with multiple levels and radicular symptoms. Patient rates her pain today at 3 out of 10. She said is a generalized pain and describes it as a dull ache. She is currently being managed with [place] 10 mg 4 times a day. She denies any side effects from this medication. She denies any changes to the location or type of pain. She states that this medication is adequately helping her pain. She is requesting refills at today's visit. She does state that she has an upcoming surgery with Dr. Chakraborty in [place]. She will be having a right trigger finger release. Her Ti is #[id number]. It has been reviewed and is appropriate. Review of Systems: General: No recent weight changes, no fever, no sleep disturbances Respiratory: No cough, no shortness of air, no recurring pulmonary infections Cardiovascular/peripheral vascular: No chest pain, no palpitations, no edema, no shortness of breath Gastrointestinal: No new onset incontinence, normal bowel movements reported Genitourinary: No new onset incontinence Musculoskeletal: Low back pain Psychiatric: [Normal mood/affect] Neurological: [Denies weakness in extremities], [denies balance issues] Objective:: Physical Exam: General: Alert and oriented x3, no acute distress, pleasant and cooperative Lungs: Respirations even and unlabored, symmetrical chest expansion Eyes: PERRL Musculoskeletal: Flexion and extension of lumbar and cervical [spine] somewhat guarded secondary to pain, [antalgic gait noted] Neurological: Speech clear, no gross sensory deficit Assessment:: Degenerative disc disease of cervical spine multilevel with cervical radiculopathy, chronic joint pain Plan:: And has done well with her medications to help her pain. At today's visit we will refill the patient's hydrocodone 10 mg 4 times a day. We will give a 1 month refill on this medication. Patient will return to clinic in 1 month for medication refill and follow-up. Patient has been instructed to contact the clinic with any concerns before the next appointment. Dr. Salas has reviewed this note and agrees with this plan of care. This note was dictated using voice recognition software and make contain errors or omissions. [facility] History I have reviewed the patient's past medical history: Yes *Have you ever received a pneumonia vaccine?: No *Have you received a flu vaccine this season?: No - *Social History Smoking Status: Never smoker Alcohol Intake: never *Occupational Status:: other *Travel in the last 8 weeks: None Family Hx:: Unable to obtain
[2021-10-07 14:51] LABS: Amphetamine/Metha Screen,Urine Negative ng/ml (<1000)
[2021-10-07 14:52] LABS: Barbiturates Screen,Urine Negative ng/ml (<200)
[2021-10-07 14:53] LABS: Benzodiazepines Screen,Urine Negative ng/ml (<200); Cannabinoid Screen,Urine Negative ng/ml (<50)
[2021-10-07 14:54] LABS: Cocaine Screen,Urine Negative ng/ml (<300)
[2021-10-07 14:55] LABS: Methadone Screen,Urine Negative ng/ml (<300); Opiate Screen,Urine Positive ng/ml (<300)
[2021-10-07 14:56] LABS: Phencyclidine Screen,Urine Negative ng/ml (<25)
[2021-10-12 12:09] LABS: Codeine Negative (Cutoff=100); Hydrocodone Positive (.); Hydromorphone Positive (.); Morphine Negative (Cutoff=100); Opiates Positive (.)
== END ==
LOC: SC.PAIN 12:59
PROVIDERS: Visit Provider Student in an Organized Health Care Education/Training Program
DX: M50.10 Cervical disc disorder with radiculopathy, unspecified cervical region (principal); G89.29 Other chronic pain; Z79.899 Other long term (current) drug therapy
CPT/HCPCS: 80305; 80361; 80365; 99212; G0463; G0480

== ENCOUNTER → 2021-11-04 08:57 | Outpatient (POV) | payer OTHER, SELFPAY ==
[2021-11-04 09:04] VITALS: BP 144/91; PULSE 103; RESP 20; BMI 31.4
--- NOTE | 2021-11-04 09:10 | P.CONS_ITS ---
[facility] Pain Management SOAP Note Subjective:: Patient is a pleasant 51-year-old female who is here for follow-up and medication refill. We are currently treating the patient for chronic joint pain, degenerative disc disease of cervical spine with multilevels with radiculopathy symptoms. Today she rates her pain a 3 to a 4 out of 10. She denies any new trauma. She denies any change to the location or type of pain she experiences. She states her pain is a generalized throbbing sensation. Patient is currently managed with [place] 10 mg 4 times a day. She denies any side effects from this medication. She states that this medication is adequately helping manage her pain her Ti is [id number]. It has been reviewed and appropriate. Patient has had right trigger finger release with Dr. Chakraborty in [place]. She states she just had it and is doing well. Patient states that she had an immediate improvement of her symptoms following surgery. Review of Systems: General: No recent weight changes, no fever, no sleep disturbances Respiratory: No cough, no shortness of air, no recurring pulmonary infections Cardiovascular/peripheral vascular: No chest pain, no palpitations, no edema, no shortness of breath Gastrointestinal: No new onset incontinence, normal bowel movements reported Genitourinary: No new onset incontinence Musculoskeletal: Generalized body pain Psychiatric: [Normal mood/affect] Neurological: [Denies weakness in extremities], [denies balance issues] Objective:: Physical Exam: General: Alert and oriented x3, no acute distress, pleasant and cooperative Lungs: Respirations even and unlabored, symmetrical chest expansion Eyes: PERRL Musculoskeletal: Flexion and extension of cervical, lumbar [spine] somewhat guarded secondary to pain, [antalgic gait noted] Neurological: Speech clear, no gross sensory deficit Assessment:: Chronic joint pain, degenerative disc disease of cervical spine multiple levels with radiculopathy symptoms Plan:: Patient is managing her pain well with her prescribed medications. I will refill the patient's [place] 10 mg 4 times a day. I will provide 1 month supply of this medication. Patient will return to clinic in 1 month for follow-up and medication refill. Patient has been advised of risks of oversedation with the prescribed medication. Narcan has been offered to the patient in the event of oversedation. Patient has been advised that a family member should also be educated regarding administration of Narcan. Patient has been instructed to contact the clinic with any concerns before the next appointment. Dr. Salas has reviewed this note and agrees with this plan of care. This note was dictated using voice recognition software and make contain errors or omissions. [facility] History I have reviewed the patient's past medical history: Yes *Have you ever received a pneumonia vaccine?: No *Have you received a flu vaccine this season?: No - *Social History Smoking Status: Never smoker Alcohol Intake: never *Occupational Status:: other *Travel in the last 8 weeks: None Family Hx:: Unable to obtain
== END ==
PROVIDERS: PCP Family Medicine; Visit Provider Nurse Practitioner Family
DX: M50.10 Cervical disc disorder with radiculopathy, unspecified cervical region (principal); G89.29 Other chronic pain
CPT/HCPCS: 99212; G0463

== ENCOUNTER → 2021-12-02 09:34 | Outpatient (POV) | payer OTHER, SELFPAY ==
[2021-12-02 09:38] VITALS: BP 166/90; PULSE 95; RESP 18; TEMP 37.2; O2SAT 97; BMI 32.4
--- NOTE | 2021-12-02 09:43 | A.OFFVIS_ITS ---
[facility] Pain Management SOAP Note Subjective:: Patient is a pleasant 51-year-old female who presents today for follow-up and medication refill. We are currently treating the patient for degenerative disc disease of cervical spine multilevel with cervical radiculopathy symptoms, chronic joint pain. Today the patient rates her pain a 3 out of 10 and she states it is primarily in her mid to upper back. Patient denies any new trauma or injury. She denies any change to the location or type of pain she experiences. Patient is currently managed with [place] 10 mg 4 times a day. Patient denies any side effects from these medications. She states this medication is adequately managing her pain. Her Ti is [id number]. It has been reviewed and appropriate. Review of Systems: General: No recent weight changes, no fever, no sleep disturbances Respiratory: No cough, no shortness of air, no recurring pulmonary infections Cardiovascular/peripheral vascular: No chest pain, no palpitations, no edema, no shortness of breath Gastrointestinal: No new onset incontinence, normal bowel movements reported Genitourinary: No new onset incontinence Musculoskeletal: Mid/upper back pain Psychiatric: [Normal mood/affect] Neurological: [Denies weakness in extremities], [denies balance issues] Objective:: Physical Exam: General: Alert and oriented x3, no acute distress, pleasant and cooperative Lungs: Respirations even and unlabored, symmetrical chest expansion Eyes: PERRL Musculoskeletal: Flexion and extension of cervical [spine] somewhat guarded secondary to pain, [antalgic gait noted] Neurological: Speech clear, no gross sensory deficit Assessment:: Degenerative disc disease of cervical spine multilevel with cervical radiculopathy symptoms, chronic joint pain Plan:: Patient continues to have pain along her upper/mid back and joint pain. I will refill the patient's [place] 10 mg 4 times a day and provide a 1 month supply of this medication. Patient will follow-up in 1 month. She will return to clinic in 1 month for reevaluation of symptoms and medication refill. Patient has been advised of risks of oversedation with the prescribed medication. Narcan has been offered to the patient in the event of oversedation. Patient has been advised that a family member should also be educated regarding administration of Narcan. Patient has been instructed to contact the clinic with any concerns before the next appointment. Dr. Salas has reviewed this note and agrees with this plan of care. This note was dictated using voice recognition software and make contain errors or omissions. PFSH PFS Social History Smoking Status: Never smoker alcohol intake: never current occupational status: other Travel in the last 8 weeks: None
== END | disposition home or self-care (01) ==
PROVIDERS: PCP Family Medicine; Visit Provider Nurse Practitioner Family
DX: M50.10 Cervical disc disorder with radiculopathy, unspecified cervical region (principal); M25.50 Pain in unspecified joint; G89.29 Other chronic pain
CPT/HCPCS: 99212; G0463

== ENCOUNTER → 2022-01-03 09:26 | Outpatient (POV) | payer OTHER, SELFPAY ==
[2022-01-03 09:32] VITALS: BP 154/80; PULSE 80; RESP 18; TEMP 36.7; O2SAT 99; BMI 32.3
--- NOTE | 2022-01-03 10:29 | EXP.PAIN.SOA ---
[facility] Pain Management SOAP Note Subjective:: Patient is a pleasant 51-year-old female who is here for medication refill and follow-up. Patient is currently being treated for degenerative disc disease of the cervical spine with cervical radiculopathy symptoms, chronic joint pain. Patient is being managed with [place] 10 mg 4 times a day. Patient denies any side effects from the medications. Patient denies any changes to the location and type of pain. Patient states that this is adequately helping manage their pain. Rates pain as 3 out of 10. [facility] number [id number] with an active morphine equivalent 40. Drug screens have been reviewed and appropriate. She is also taking care of an adopted 3 yo grandkid. This has taken most of her time. She is stable on her medication. Review of Systems: General: No recent weight changes, no fever, no sleep disturbances Respiratory: No cough, no shortness of air, no recurring pulmonary infections Cardiovascular/peripheral vascular: No chest pain, no palpitations, no edema, no shortness of breath Gastrointestinal: No new onset incontinence, normal bowel movements reported Genitourinary: No new onset incontinence Musculoskeletal: Neck pain, low back pain Psychiatric: [Normal mood/affect] Neurological: [Denies weakness in extremities], [denies balance issues] Objective:: Physical Exam: General: Alert and oriented x3, no acute distress, pleasant and cooperative Lungs: Respirations even and unlabored, symmetrical chest expansion Eyes: PERRL Musculoskeletal: Flexion and extension of cervical [spine] somewhat guarded secondary to pain, [antalgic gait noted] Neurological: Speech clear, no gross sensory deficit Assessment:: Degenerative disc disease of the cervical spine with cervical radiculopathy symptoms, chronic joint pain Plan:: We will continue the patient's [place] 10 mg 4 times a day. We will provide the patient with 1 month of refills. We would like to see the patient back in 1 month for follow-up and reevaluation of chronic pain syndrome. Patient has been advised of risks of oversedation with the prescribed medication. Narcan has been offered to the patient in the event of oversedation. Patient has been advised that a family member should also be educated regarding administration of Narcan. Patient has been instructed to contact the clinic with any concerns before the next appointment. Dr. Salas has reviewed this note and agrees with this plan of care. This note was dictated using voice recognition software and make contain errors or omissions. PFSH PFSH Social History Smoking Status: Never smoker alcohol intake: never current occupational status: employed Travel in the last 8 weeks: None
== END | disposition home or self-care (01) ==
PROVIDERS: Visit Provider Student in an Organized Health Care Education/Training Program
DX: M50.10 Cervical disc disorder with radiculopathy, unspecified cervical region (principal); G89.4 Chronic pain syndrome; Z79.899 Other long term (current) drug therapy
CPT/HCPCS: 99212; G0463

== ENCOUNTER → 2022-02-03 09:23 | Outpatient (POV) | payer OTHER, SELFPAY ==
--- NOTE | 2022-02-03 09:55 | EXP.PAIN.SOA ---
[facility] Pain Management SOAP Note Subjective:: Patient is a pleasant 51-year-old female who presents today for medication refill and follow-up. We are currently treating the patient for degenerative disc disease of cervical spine with cervical radiculopathy symptoms, chronic joint pain. Today the patient rates her pain a 4 out of 10. She states the pain is primarily in her low back along the right side that radiates into her right hip and groin and goes down to her knee. Patient states this has been going on for approximately 1 week. Patient denies any new trauma or injury. She describes this as a aching, throbbing sensation that is worse with increased activity. Patient states she cannot stand prolonged sitting, standing, walking due to the pain. She is currently managed with [place] 10 mg 4 times a day. Patient denies any side effects from this medication. She states this medication does adequately manage her pain symptoms. She is requesting a refill at today's visit. Her Ti is [id number]. It has been reviewed and appropriate. Review of Systems: General: No recent weight changes, no fever, no sleep disturbances Respiratory: No cough, no shortness of air, no recurring pulmonary infections Cardiovascular/peripheral vascular: No chest pain, no palpitations, no edema, no shortness of breath Gastrointestinal: No new onset incontinence, normal bowel movements reported Genitourinary: No new onset incontinence Musculoskeletal: Low back pain, right hip pain, right leg pain Psychiatric: [Normal mood/affect] Neurological: [Denies weakness in extremities], [denies balance issues] Objective:: Physical Exam: General: Alert and oriented x3, no acute distress, pleasant and cooperative Lungs: Respirations even and unlabored, symmetrical chest expansion Eyes: PERRL Musculoskeletal: Flexion and extension of lumbar [spine] somewhat guarded secondary to pain, [antalgic gait noted] extreme point tenderness of right SI and positive right Jose's, Jorge's, Gaenslen's, compression and distraction exam Neurological: Speech clear, no gross sensory deficit Assessment:: Degenerative disc disease of cervical spine with cervical radiculopathy symptoms, chronic joint pain, right-sided sacroiliitis Plan:: Patient is experienced significant pain in her low back along the right side that radiates into her right hip and right groin down her leg to her knee. Patient has limited range of motion of her lumbar spine with extreme point tenderness along right SI and positive right Jose's, Jorge's, Gaenslen's, compression and distraction exam during today's visit. I have recommended the patient do a right SI injection. Risk and benefits were discussed with the patient. She would like to proceed forward with this plan of care. I will refill the patient's [place] 10 mg 4 times a day and provide a 1 month supply of this medication. We will schedule the patient for a right SI injection. Patient has been advised of risks of oversedation with the prescribed medication. Narcan has been offered to the patient in the event of oversedation. Patient has been advised that a family member should also be educated regarding administration of Narcan. Patient has been instructed to contact the clinic with any concerns before the next appointment. Dr. Salas has reviewed this note and agrees with this plan of care. This note was dictated using voice recognition software and make contain errors or omissions.. PFSH PFSH Social History Smoking Status: Never smoker alcohol intake: never current occupational status: employed Travel in the last 8 weeks: None
[2022-02-03 10:14] VITALS: BP 170/91; PULSE 103; RESP 18; O2SAT 97; BMI 32.5
== END | disposition home or self-care (01) ==
PROVIDERS: PCP Family Medicine; Visit Provider Nurse Practitioner Family
DX: M50.10 Cervical disc disorder with radiculopathy, unspecified cervical region (principal); M46.1 Sacroiliitis, not elsewhere classified; M25.50 Pain in unspecified joint; G89.29 Other chronic pain
CPT/HCPCS: 99212; G0463

== ENCOUNTER → 2022-02-03 10:03 | Outpatient (CLI) | payer OTHER, SELFPAY ==
[2022-02-03 10:56] LABS: Amphetamine/Metha Screen,Urine Negative ng/ml (<1000)
[2022-02-03 10:57] LABS: Barbiturates Screen,Urine Negative ng/ml (<200)
[2022-02-03 10:59] LABS: Benzodiazepines Screen,Urine Negative ng/ml (<200); Cannabinoid Screen,Urine Negative ng/ml (<50)
[2022-02-03 11:00] LABS: Cocaine Screen,Urine Negative ng/ml (<300)
[2022-02-03 11:01] LABS: Methadone Screen,Urine Negative ng/ml (<300); Opiate Screen,Urine Positive ng/ml (<300)
[2022-02-03 11:02] LABS: Phencyclidine Screen,Urine Negative ng/ml (<25)
[2022-02-08 22:17] LABS: Codeine Negative (Cutoff=100); Hydrocodone Positive (.); Hydromorphone Positive (.); Morphine Negative (Cutoff=100); Opiates Positive (.)
== END ==
LOC: LAB 10:04
PROVIDERS: PCP Family Medicine; Visit Provider Nurse Practitioner Family
DX: Z79.891 Long term (current) use of opiate analgesic (principal)
CPT/HCPCS: 80305; 80361; 80365; G0480

== ENCOUNTER → 2022-03-08 09:39 | Outpatient (POV) | payer OTHER, SELFPAY ==
--- NOTE | 2022-03-08 10:17 | EXP.PAIN.SOA ---
[facility] Pain Management SOAP Note Subjective:: ,Patient is a pleasant 51-year-old female who presents today via telehealth visit for medication refill and follow-up. We are currently treating the patient for degenerative disc disease of cervical spine with cervical radiculopathy symptoms, chronic joint pain, low back pain, right hip pain sacroiliitis. This telehealth visit is occurring at the patient's home and she is given consent for this audio visit. Today she rates her pain a 6 out of 10. Patient states the pain is all in her low back along the right side that radiates into her right hip down to her leg. Patient denies any new trauma or injury. Patient denies any change location or type of pain that she experiences. At our last visit we did submit for a right SI injection however it was denied by insurance. Patient does state that she has been going to a chiropractor and is gone on multiple occasions however this has worsened her symptoms. Patient describes this as a constant aching, throbbing sensation that is worse with prolonged sitting or laying down. Patient states she is unable to perform activities of daily living such as cooking or cleaning due to the pain. Patient is currently managed with [place] 10 mg 4 times a day. Patient denies any side effects from this medication. She states this medication does help manage her pain symptoms however is not touching her right hip/leg pain. Patient states she is continue to use her compounding cream along with [place] balm and cryo Derm cream given to her by the chiropractor for her pain however this is not improving her symptoms. Her Ti is [id number]. It has been reviewed and appropriate. Review of Systems: General: No recent weight changes, no fever, no sleep disturbances Respiratory: No cough, no shortness of air, no recurring pulmonary infections Cardiovascular/peripheral vascular: No chest pain, no palpitations, no edema, no shortness of breath Gastrointestinal: No new onset incontinence, normal bowel movements reported Genitourinary: No new onset incontinence Musculoskeletal: Low back pain, right hip pain, right leg pain Psychiatric: [Normal mood/affect] Neurological: [Denies weakness in extremities], [denies balance issues] Objective:: General: Alert and oriented x3, pleasant and cooperative Lungs: Patient is able to say complete sentences without dyspnea Neurological: Speech clear Assessment:: Degenerative disc disease of cervical spine with cervical radiculopathy symptoms, chronic joint pain, low back pain, right hip pain, sacroiliitis Plan:: Patient continues to experience significant pain in her low back along the right side that radiates into her right hip and right leg. I have discussed with the patient regarding ordering physical therapy. Patient does agree with this plan of care and I will send this referral at today's visit. I will refill the patient's [place] 10 mg 4 times a day and provide a 1 month supply of this medication. Patient has tried and failed oral medications, heat and ice, topicals, chiropractor, at home exercising and stretching for longer than 6 weeks. I have discussed with the patient that I do think she would still benefit from a diagnostic right SI injection. Risk and benefits were discussed with the patient. She would like to proceed forward with this plan of care. I will also order the patient tizanidine 4 mg 3 times daily and provide a 14-day supply of this medication. I have counseled the patient to start by taking this medication at night and see how she tolerates it. We will contact the patient once we have insurance approval for the right SI injection. This telehealth visit occurred from . Patient has been advised of risks of oversedation with the prescribed medication. Narcan has been offered to the patient in the event of oversedation. Patient has been advised that a family member should also be educated regarding administration of Narcan
== END | disposition home or self-care (01) ==
PROVIDERS: Visit Provider Nurse Practitioner Family
DX: M50.10 Cervical disc disorder with radiculopathy, unspecified cervical region (principal)
CPT/HCPCS: 99212; G0463

== ENCOUNTER 2022-03-25 09:55 | Day surgery (SDC) | payer OTHER, SELFPAY ==
[2022-03-25 10:07] VITALS: BP 151/93; PULSE 95; RESP 18; TEMP 36.7; O2SAT 100; BMI 31.6
[2022-03-25 10:25] VITALS: BP 199/76; PULSE 91; RESP 18; O2SAT 97
--- NOTE | 2022-03-25 10:34 | P.PCN_ITS ---
Procedure Date: 03/25/22 Time: 10:20 Anesthesiologist:: Andrade Davis CRNA Complications:: None Pre-procedure Diagnosis:: Right sacroiliitis Post-procedure Diagnosis:: Same Indications for Procedure:: Patient is a pleasant 51-year-old female comes our clinic today for right sacroiliac joint injection. She has extreme point tenderness over the right sacroiliac joint upon examination. She rates her pain 8/10. Patient has difficulty transitioning from sitting to standing. Pain with ambulation. Procedure Details:: Procedure: Right sacroliliac joint injection under fluoroscopy Informed consent was obtained and the risk and benefits of the procedure were explained to the patient.~ The patient was taken to the procedure room and noninvasive monitors were placed including noninvasive blood pressure cuff and pulse oximeter.~ The patient was placed prone on the procedure table.~ The~ right hip was cleansed using Betadine as a cleansing solution.~ C-arm fluorosocpy was used to view the right SI joint.~ The skin and subcutaneous tiss ues were anesthetized using Lidocaine 1.5% and a 25-gauge needle.~ After this, a 22-gauge spinal needle was inserted under fluoroscopic guidance into the inferior aspect of the right SI joint.~ Omnipaque dye was injected and a good spread was seen throughout the joint.~ After this, approximately 5 mL of bupivacaine 0.25% and Depo-Medrol 40 mg was incrementally injected into the sacroiliac joint.~ The patient tolerated the procedure well with no complications.~ The patient was observed in the Pain Clinic, then discharged home neurologically intact.~ Plan and Disposition:: Patient was discharged without incident
[2022-03-25 10:40] VITALS: BP 146/84; PULSE 87; RESP 20
== END 2022-03-25 10:40 | disposition home or self-care (01) ==
PROVIDERS: PCP Family Medicine; Visit Provider Nurse Anesthetist, Certified Registered
DX: M46.1 Sacroiliitis, not elsewhere classified (principal)
CPT/HCPCS: 27096; G0260; J1040

== ENCOUNTER → 2022-04-07 09:31 | Outpatient (POV) | payer OTHER, SELFPAY ==
[2022-04-07 09:37] VITALS: BP 132/84; PULSE 72; RESP 18; O2SAT 98; BMI 30.7
--- NOTE | 2022-04-07 09:46 | EXP.PAIN.SOA ---
[facility] Pain Management SOAP Note Subjective:: Patient is a pleasant 51-year-old female who presents today for follow-up of right SI injection on 03/25/2022. We are currently treating the patient for degenerative disc disease of cervical spine with cervical radiculopathy symptoms, chronic joint pain, low back pain, right hip pain, sacroiliitis. Today the patient states that she has had about 99% improvement following this injection and states it still continuing to give additional relief. Patient rates her pain a 2 out of 10 and states she occasionally has a twinge of a sensation however they frequently fade away quickly. Patient states she has been able to increase her activity following this injection with decreased pain symptoms. Patient is currently prescribed [place] 10 mg 4 times a day and compounding cream. Patient denies any side effects from this medication. She states this medications do help manage her pain symptoms. Her Ti is [id number]. Its been reviewed and appropriate. Review of Systems: General: No recent weight changes, no fever, no sleep disturbances Respiratory: No cough, no shortness of air, no recurring pulmonary infections Cardiovascular/peripheral vascular: No chest pain, no palpitations, no edema, no shortness of breath Gastrointestinal: No new onset incontinence, normal bowel movements reported Genitourinary: No new onset incontinence Musculoskeletal: Low back pain Psychiatric: [Normal mood/affect] Neurological: [Denies weakness in extremities], [denies balance issues] Objective:: Physical Exam: General: Alert and oriented x3, no acute distress, pleasant and cooperative Lungs: Respirations even and unlabored, symmetrical chest expansion Eyes: PERRL Musculoskeletal: Flexion and extension of lumbar [spine] somewhat guarded secondary to pain, [antalgic gait noted] Neurological: Speech clear, no gross sensory deficit Assessment:: Degenerative disc disease of cervical spine with cervical radiculopathy symptoms, chronic joint pain, low back pain, right hip pain, sacroiliitis Plan:: Patient has had significant improvement of her pain symptoms following her right SI injection and does not need additional injective therapy at this time. Patient will return to clinic in approximately 3 weeks for reevaluation of symptoms, medication refill and follow-up. Patient has been instructed to contact the clinic with any concerns before the next appointment. Dr. Salas has reviewed this note and agrees with this plan of care. This note was dictated using voice recognition software and make contain errors or omissions. [facility] Disclaimer: The information contained in this section may have been updated after the patient was seen, as this information can be updated by other users. Social History Smoking Status: Never smoker alcohol intake: never current occupational status: employed Travel in the last 8 weeks: None
== END ==
PROVIDERS: PCP Family Medicine; Visit Provider Nurse Practitioner Family
DX: M50.10 Cervical disc disorder with radiculopathy, unspecified cervical region (principal); M25.50 Pain in unspecified joint; G89.29 Other chronic pain; M46.1 Sacroiliitis, not elsewhere classified; M25.551 Pain in right hip
CPT/HCPCS: 99212; G0463

== ENCOUNTER → 2022-04-07 09:53 | Outpatient (CLI) | payer OTHER, SELFPAY ==
[2022-04-07 10:53] LABS: Amphetamine/Metha Screen,Urine Negative ng/ml (<1000)
[2022-04-07 10:54] LABS: Barbiturates Screen,Urine Negative ng/ml (<200); Benzodiazepines Screen,Urine Negative ng/ml (<200)
[2022-04-07 10:55] LABS: Cannabinoid Screen,Urine Negative ng/ml (<50)
[2022-04-07 10:56] LABS: Cocaine Screen,Urine Negative ng/ml (<300); Methadone Screen,Urine Negative ng/ml (<300)
[2022-04-07 10:57] LABS: Opiate Screen,Urine Positive ng/ml (<300)
[2022-04-07 10:58] LABS: Phencyclidine Screen,Urine Negative ng/ml (<25)
[2022-04-12 16:51] LABS: Codeine Negative (Cutoff=100); Hydrocodone Positive (.); Hydromorphone Positive (.); Morphine Negative (Cutoff=100); Opiates Positive (.)
== END ==
LOC: LAB 09:53
PROVIDERS: PCP Family Medicine; Visit Provider Nurse Practitioner Family
DX: Z79.891 Long term (current) use of opiate analgesic (principal)
CPT/HCPCS: 80305; 80361; 80365; G0480

== ENCOUNTER → 2022-05-05 09:32 | Outpatient (POV) | payer OTHER, SELFPAY ==
--- NOTE | 2022-05-05 09:55 | EXP.PAIN.SOA ---
[facility] Pain Management SOAP Note Subjective:: Patient is a pleasant 51-year-old female who presents today for medication refill and follow-up. We are currently treating the patient for degenerative disc disease of cervical spine with cervical radiculopathy symptoms, chronic joint pain, low back pain, right hip pain, sacroiliitis, lumbar radiculopathy symptoms. Today she rates her pain a 3 out of 10. Patient denies any new trauma or injury. She states she is still experiencing some relief following her last right SI injection from February. Patient does state that she notices more a right deep hip aching pain that is more noticeable at night. Patient states this pain has not yet been significant enough to interfere with her daily life. Patient states it is tolerable and that she may be interested in injections in the future. Patient is currently managed with [employer] 10 mg 4 times a day and compounding cream. Patient denies any side effects from these medications. She states these medications do help manage her pain symptoms. She is requesting a refill of her [employer] at today's visit. Her Ti is [id number]. Its been reviewed and appropriate. Review of Systems: General: No recent weight changes, no fever, no sleep disturbances Respiratory: No cough, no shortness of air, no recurring pulmonary infections Cardiovascular/peripheral vascular: No chest pain, no palpitations, no edema, no shortness of breath Gastrointestinal: No new onset incontinence, normal bowel movements reported Genitourinary: No new onset incontinence Musculoskeletal: Right hip pain Psychiatric: [Normal mood/affect] Neurological: [Denies weakness in extremities], [denies balance issues] Objective:: Physical Exam: General: Alert and oriented x3, no acute distress, pleasant and cooperative Lungs: Respirations even and unlabored, symmetrical chest expansion Eyes: PERRL Musculoskeletal: Flexion and extension of lumbar [spine] somewhat guarded secondary to pain, [antalgic gait noted] Neurological: Speech clear, no gross sensory deficit Assessment:: Degenerative disc disease of cervical spine with cervical radiculopathy symptoms, chronic joint pain, low back pain, right hip pain, sacroiliitis, lumbar radiculopathy symptoms Plan:: Patient continues to experience significant pain in her neck and low back with limited range of motion. Patient is having more right hip pain however at this time she would like to wait on injective therapy. I have discussed with her that she may benefit from a right hip intra-articular injection in the future. I will refill the patient's [employer] 10 mg 4 times a day and provide a 1 month supply of this medication. Patient will return to clinic in 1 month for reevaluation of symptoms, medication refill and follow-up. Patient has been advised of risks of oversedation with the prescribed medication. Narcan has been offered to the patient in the event of oversedation. Patient has been advised that a family member should also be educated regarding administration of Narcan. Patient has been instructed to contact the clinic with any concerns before the next appointment. Dr. Salas has reviewed this note and agrees with this plan of care. This note was dictated using voice recognition software and make contain errors or omissions. [facility] Disclaimer: The information contained in this section may have been updated after the patient was seen, as this information can be updated by other users. Social History Smoking Status: Never smoker alcohol intake: never current occupational status: employed Travel in the last 8 weeks: None
[2022-05-05 10:31] VITALS: BP 131/85; PULSE 87; RESP 18; O2SAT 99; BMI 31.6
== END | disposition home or self-care (01) ==
PROVIDERS: PCP Family Medicine; Visit Provider Nurse Practitioner Family
DX: M50.10 Cervical disc disorder with radiculopathy, unspecified cervical region (principal); M54.16 Radiculopathy, lumbar region; M46.1 Sacroiliitis, not elsewhere classified; M25.551 Pain in right hip; M54.50 Low back pain, unspecified; M25.50 Pain in unspecified joint; G89.29 Other chronic pain
CPT/HCPCS: 99212; G0463

== ENCOUNTER → 2022-06-02 09:15 | Outpatient (POV) | payer OTHER, SELFPAY ==
--- NOTE | 2022-06-02 09:33 | A.OFFVIS_ITS ---
[facility] Pain Management SOAP Note Subjective:: Patient is a pleasant 52-year-old female who presents today for medication refill and follow-up. We are currently treating the patient for degenerative disc disease of cervical spine with cervical radiculopathy symptoms, chronic joint pain, low back pain, right hip pain, sacroiliitis, lumbar radiculopathy symptoms. Today she rates her pain a 5 out of 10. Patient does state that her hip has been bothering her more over the last couple of weeks. At our last visit we did discuss about doing an intra-articular hip injection as well as imaging and she states during today's visit that she is interested in proceeding forward with this plan of care. Patient does describe her pain as an aching, throbbing sensation that is worse at night or with increased activity. Patient does state it causes issues with doing activities of daily living such as cooking and cleaning. She is currently managed with [place] 10 mg 4 times a day and compounding cream. Patient denies any side effects from this medication. Her Ti is [id number]. Its been reviewed and appropriate. Review of Systems: General: No recent weight changes, no fever, no sleep disturbances Respiratory: No cough, no shortness of air, no recurring pulmonary infections Cardiovascular/peripheral vascular: No chest pain, no palpitations, no edema, no shortness of breath Gastrointestinal: No new onset incontinence, normal bowel movements reported Genitourinary: No new onset incontinence Musculoskeletal: Right hip pain Psychiatric: [Normal mood/affect] Neurological: [Denies weakness in extremities], [denies balance issues] Objective:: Physical Exam: General: Alert and oriented x3, no acute distress, pleasant and cooperative Lungs: Respirations even and unlabored, symmetrical chest expansion Eyes: PERRL Musculoskeletal: Flexion and extension of right hip, lumbar [spine] somewhat guarded secondary to pain, [antalgic gait noted] Neurological: Speech clear, no gross sensory deficit Assessment:: Degenerative disc disease of cervical spine with cervical radiculopathy symptoms, chronic joint pain, low back pain, right hip pain, sacroiliitis, lumbar radiculopathy symptoms Plan:: Patient is having worsening pain in her right hip with limited range of motion. I will order a right hip x-ray as well as a right hip intra-articular injection. Risk and benefits of the intra-articular injection were discussed with the patient and she would like to proceed forward with this plan of care. I will refill her [place] 10 mg 4 times a day and provide a 1 month supply of this me dication. We will schedule the patient for a right hip intra-articular injection. Patient has been advised of risks of oversedation with the prescribed medication. Narcan has been offered to the patient in the event of oversedation. Patient has been advised that a family member should also be educated regarding administration of Narcan. Patient has been instructed to contact the clinic with any concerns before the next appointment. Dr. Salas has reviewed this note and agrees with this plan of care. This note was dictated using voice recognition software and make contain errors or omissions. [facility] Disclaimer: The information contained in this section may have been updated after the patient was seen, as this information can be updated by other users. Social History Smoking Status: Never smoker alcohol intake: never current occupational status: employed Travel in the last 8 weeks: None
[2022-06-02 10:05] VITALS: BP 137/77; PULSE 84; RESP 20; BMI 30.7
== END | disposition home or self-care (01) ==
PROVIDERS: PCP Family Medicine; Visit Provider Nurse Practitioner Family
DX: M50.10 Cervical disc disorder with radiculopathy, unspecified cervical region (principal); M25.551 Pain in right hip; M46.1 Sacroiliitis, not elsewhere classified; G89.29 Other chronic pain; M25.50 Pain in unspecified joint
CPT/HCPCS: 99212; G0463

== ENCOUNTER → 2022-06-27 13:03 | Outpatient (POV) | payer OTHER, SELFPAY ==
--- NOTE | 2022-06-27 13:31 | EXP.PAIN.SOA ---
[facility] Pain Management SOAP Note Subjective:: Patient is a pleasant 52-year-old female who presents today for medication refill and follow-up. We are currently treating the patient for degenerative disc disease of cervical and lumbar spine with cervical and lumbar radiculopathy symptoms, chronic joint pain, low back pain, right hip pain, sacroiliitis. Today she rates her pain a 2 out of 10. Patient denies any new trauma or injury. Patient denies any change to location or type of pain she experiences. She states her hip is still causing additional pain symptoms however it is more manageable and does not require any additional injective therapy at this time. Patient is currently managed with [place] 10 mg 4 times a day. Patient denies any side effects from this medication. She is also prescribed compounding cream. Her Ti is [id number]. Its been reviewed and appropriate. Review of Systems: General: No recent weight changes, no fever, no sleep disturbances Respiratory: No cough, no shortness of air, no recurring pulmonary infections Cardiovascular/peripheral vascular: No chest pain, no palpitations, no edema, no shortness of breath Gastrointestinal: No new onset incontinence, normal bowel movements reported Genitourinary: No new onset incontinence Musculoskeletal: Right hip pain Psychiatric: [Normal mood/affect] Neurological: [Denies weakness in extremities], [denies balance issues] Objective:: Physical Exam: General: Alert and oriented x3, no acute distress, pleasant and cooperative Lungs: Respirations even and unlabored, symmetrical chest expansion Eyes: PERRL Musculoskeletal: Flexion and extension of lumbar [spine] somewhat guarded secondary to pain, [antalgic gait noted] Neurological: Speech clear, no gross sensory deficit Assessment:: Degenerative disc disease of cervical and lumbar spine with cervical and lumbar radiculopathy symptoms, chronic joint pain, low back pain, right hip pain, sacroiliitis Plan:: Patient is doing well with her current medication regimen. I will refill the [place] 10 mg 4 times a day and provide a 1 month supply of this medication. Patient will return to clinic in 1 month for reevaluation of symptoms, medication refill and follow-up. Patient has been advised of risks of oversedation with the prescribed medication. Narcan has been offered to the patient in the event of oversedation. Patient has been advised that a family member should also be educated regarding administration of Narcan. Patient has been instructed to contact the clinic with any concerns before the next appointment. Dr. Salas has reviewed this note and agrees with this plan of care. This note was dictated using voice recognition software and make contain errors or omissions. [facility] Disclaimer: The information contained in this section may have been updated after the patient was seen, as this information can be updated by other users. Social History Smoking Status: Never smoker alcohol intake: never current occupational status: other Travel in the last 8 weeks: None
[2022-06-27 13:50] VITALS: BP 132/83; PULSE 75; RESP 20; BMI 31.2
== END | disposition home or self-care (01) ==
PROVIDERS: PCP Family Medicine; Visit Provider Nurse Practitioner Family
DX: M51.16 Intervertebral disc disorders with radiculopathy, lumbar region (principal); M50.10 Cervical disc disorder with radiculopathy, unspecified cervical region; M25.50 Pain in unspecified joint; G89.29 Other chronic pain; M46.1 Sacroiliitis, not elsewhere classified; M25.551 Pain in right hip
CPT/HCPCS: 99212; G0463

== ENCOUNTER → 2022-07-28 13:07 | Outpatient (POV) | payer OTHER, SELFPAY ==
--- NOTE | 2022-07-28 13:14 | A.OFFVIS_ITS ---
[facility] Pain Management SOAP Note Subjective:: Patient is a pleasant 52-year-old female who presents today for medication refill and follow-up.? We are currently treating the patient for degenerative disc disease of cervical and lumbar spine with cervical and lumbar radiculopathy symptoms, chronic joint pain, low back pain, right hip pain, sacroiliitis.? Today she rates her pain a 3 out of 10.? Patient denies any new trauma or injury.? Patient denies any change to location or type of pain she experiences.? Patient is currently managed with [place] 10 mg 4 times a day.? Patient denies any side effects from this medication.? She is also prescribed compounding cream.? Her Ti is [id number].? Its been reviewed and appropriate. Review of Systems: General: No recent weight changes, no fever, no sleep disturbances Respiratory: No cough, no shortness of air, no recurring pulmonary infections Cardiovascular/peripheral vascular: No chest pain, no palpitations,? no edema, no shortness of breath Gastrointestinal: No new onset incontinence, normal bowel movements reported Genitourinary: No new onset incontinence Musculoskeletal: Low back pain Psychiatric: [Normal mood/affect] Neurological: [Denies weakness in extremities], [denies balance issues] Objective:: Physical Exam: General: Alert and oriented x3, no acute distress, pleasant and cooperative Lungs: Respirations even and unlabored, symmetrical chest expansion Eyes: PERRL Musculoskeletal: Flexion and extension of lumbar [spine] somewhat guarded secondary to pain, [antalgic gait noted] Neurological: Speech clear, no gross sensory deficit Assessment:: Degenerative disc disease of cervical and lumbar spine with cervical and lumbar radiculopathy symptoms, chronic joint pain, low back pain, right hip pain, sacroiliitis Plan:: Patient is doing well with her current medication regimen. I will refill her [place] 10 mg 4 times a day and provide a 1 month supply of this medication. Patient will return to clinic in 1 month for reevaluation of symptoms and plan of care. Patient has been advised of risks of oversedation with the prescribed medication. Narcan has been offered to the patient in the event of oversedation. Patient has been advised that a family member should also be educated regarding administration of Narcan. Patient has been instructed to contact the clinic with any concerns before the next appointment. Dr. Bux has reviewed this note and agrees with this plan of care. This note was dictated using voice recognition software and make contain errors or omissions. [facility] Disclaimer: The information contained in this section may have been updated after the patient was seen, as this information can be updated by other users. Social History Smoking Status: Never smoker alcohol intake: never current occupational status: other Travel in the last 8 weeks: None
== END | disposition home or self-care (01) ==
PROVIDERS: PCP Family Medicine; Visit Provider Nurse Practitioner Family
DX: M51.16 Intervertebral disc disorders with radiculopathy, lumbar region (principal); M50.10 Cervical disc disorder with radiculopathy, unspecified cervical region; M46.1 Sacroiliitis, not elsewhere classified; M19.90 Unspecified osteoarthritis, unspecified site; G89.29 Other chronic pain; M25.551 Pain in right hip
CPT/HCPCS: 99212; G0463

== ENCOUNTER → 2022-07-28 13:23 | Outpatient (CLI) | payer OTHER, SELFPAY ==
[2022-07-28 14:17] LABS: Barbiturates Screen,Urine Negative ng/ml (<200)
[2022-07-28 14:18] LABS: Amphetamine/Metha Screen,Urine Negative ng/ml (<1000)
[2022-07-28 14:19] LABS: Benzodiazepines Screen,Urine Negative ng/ml (<200); Cocaine Screen,Urine Negative ng/ml (<300)
[2022-07-28 14:20] LABS: Cannabinoid Screen,Urine Negative ng/ml (<50)
[2022-07-28 14:21] LABS: Methadone Screen,Urine Negative ng/ml (<300); Opiate Screen,Urine Positive ng/ml (<300)
[2022-07-28 14:22] LABS: Phencyclidine Screen,Urine Negative ng/ml (<25)
[2022-08-08 09:35] LABS: Codeine Negative (Cutoff=100); Hydrocodone Positive (.); Hydromorphone Positive (.); Morphine Negative (Cutoff=100); Opiates Positive (.)
== END ==
PROVIDERS: PCP Nurse Practitioner Family; Visit Provider Nurse Practitioner Family
DX: Z79.891 Long term (current) use of opiate analgesic (principal)
CPT/HCPCS: 80305; 80361; 80365; G0480

== ENCOUNTER → 2022-08-29 12:54 | Outpatient (POV) | payer OTHER, SELFPAY ==
[2022-08-29 13:10] VITALS: BP 139/78; PULSE 77; RESP 20; BMI 31.2
--- NOTE | 2022-08-29 13:10 | A.OFFVIS_ITS ---
[facility] Pain Management SOAP Note Subjective:: Patient is a pleasant 52-year-old female who presents today for medication refill and follow-up. We are currently treating the patient for degenerative disc disease of cervical and lumbar spine with cervical and lumbar radiculopathy symptoms, chronic joint pain, low back pain, right hip pain, sacroiliitis. Today she rates her pain a 2 out of 10. Patient denies any new trauma or injury. Patient denies any change location of the pain she experiences. Patient is currently managed with [place] 10 mg 4 times a day. She denies any side effects from this medication. She is requesting a refill at today's visit. Her Ti is [id number]. Its been reviewed and appropriate. Review of Systems: General: No recent weight changes, no fever, no sleep disturbances Respiratory: No cough, no shortness of air, no recurring pulmonary infections Cardiovascular/peripheral vascular: No chest pain, no palpitations, no edema, no shortness of breath Gastrointestinal: No new onset incontinence, normal bowel movements reported Genitourinary: No new onset incontinence Musculoskeletal: Low back pain Psychiatric: [Normal mood/affect] Neurological: [Denies weakness in extremities], [denies balance issues] Objective:: Physical Exam: General: Alert and oriented x3, no acute distress, pleasant and cooperative Lungs: Respirations even and unlabored, symmetrical chest expansion Eyes: PERRL Musculoskeletal: Flexion and extension of lumbar [spine] somewhat guarded secondary to pain, [antalgic gait noted] Neurological: Speech clear, no gross sensory deficit Assessment:: Degenerative disc disease of cervical and lumbar spine with cervical and lumbar radiculopathy symptoms, chronic joint pain, low back pain, right hip pain, sacroiliitis Plan:: I will refill the patient's [place] 10 mg 4 times a day and provide a 1 month supply of this medication. Patient return to clinic in 1 month for reevaluation of symptoms, medication refill and follow-up. Patient has been advised of risks of oversedation with the prescribed medication. Narcan has been offered to the patient in the event of oversedation. Patient has been advised that a family member should also be educated regarding administration of Narcan. Patient has been instructed to contact the clinic with any concerns before the next appointment. Dr. Salas has reviewed this note and agrees with this plan of care. This note was dictated using voice recognition software and make contain errors or omissions. [facility] Disclaimer: The information contained in this section may have been updated after the patient was seen, as this information can be updated by other users. Social History Smoking Status: Never smoker alcohol intake: never current occupational status: other Travel in the last 8 weeks: None
== END | disposition home or self-care (01) ==
PROVIDERS: Visit Provider Nurse Practitioner Family
DX: M51.16 Intervertebral disc disorders with radiculopathy, lumbar region (principal); M50.10 Cervical disc disorder with radiculopathy, unspecified cervical region; M46.1 Sacroiliitis, not elsewhere classified; M25.50 Pain in unspecified joint; G89.29 Other chronic pain; M25.551 Pain in right hip
CPT/HCPCS: 99212; G0463

== ENCOUNTER → 2022-09-29 13:05 | Outpatient (POV) | payer OTHER, SELFPAY ==
--- NOTE | 2022-09-29 13:19 | EXP.PAIN.SOA ---
[facility] Pain Management SOAP Note Subjective:: Patient is a pleasant 52-year-old female who presents today for medication refill and follow-up. We are currently treating the patient for degenerative disc disease of cervical and lumbar spine with cervical and lumbar radiculopathy symptoms, chronic joint pain, low back pain, right hip pain, sacroiliitis. Today she rates her pain a 2 out of 10. Patient denies any new trauma or injury. Patient denies any change to location or type of pain she experiences. She is currently managed with [place] 10 mg 4 times a day. Patient denies any side effects from this medication. Her Ti is [id number]. Its been reviewed and appropriate. Review of Systems: General: No recent weight changes, no fever, no sleep disturbances Respiratory: No cough, no shortness of air, no recurring pulmonary infections Cardiovascular/peripheral vascular: No chest pain, no palpitations, no edema, no shortness of breath Gastrointestinal: No new onset incontinence, normal bowel movements reported Genitourinary: No new onset incontinence Musculoskeletal: Low back pain Psychiatric: [Normal mood/affect] Neurological: [Denies weakness in extremities], [denies balance issues] Objective:: Physical Exam: General: Alert and oriented x3, no acute distress, pleasant and cooperative Lungs: Respirations even and unlabored, symmetrical chest expansion Eyes: PERRL Musculoskeletal: Flexion and extension of lumbar [spine] somewhat guarded secondary to pain, [antalgic gait noted] Neurological: Speech clear, no gross sensory deficit Assessment:: Degenerative disc disease of cervical and lumbar spine with cervical and lumbar radiculopathy symptoms, chronic joint pain, low back pain, right hip pain, sacroiliitis Plan:: Patient is doing well with her current medication. I will refill her [place] 10 mg 4 times a day and provide a 1 month supply of this medication. Patient will return to clinic in 1 month for reevaluation of symptoms and medication refill. Patient has been advised of risks of oversedation with the prescribed medication. Narcan has been offered to the patient in the event of oversedation. Patient has been advised that a family member should also be educated regarding administration of Narcan. Patient has been instructed to contact the clinic with any concerns before the next appointment. Dr. Salas has reviewed this note and agrees with this plan of care. This note was dictated using voice recognition software and make contain errors or omissions. [facility] Disclaimer: The information contained in this section may have been updated after the patient was seen, as this information can be updated by other users. Social History Smoking Status: Never smoker alcohol intake: never current occupational status: other Travel in the last 8 weeks: None
[2022-09-29 14:49] VITALS: BP 147/92; PULSE 84; RESP 18; O2SAT 97; BMI 31.2
== END | disposition home or self-care (01) ==
PROVIDERS: Visit Provider Nurse Practitioner Family
DX: M50.10 Cervical disc disorder with radiculopathy, unspecified cervical region (principal); M51.16 Intervertebral disc disorders with radiculopathy, lumbar region; M25.50 Pain in unspecified joint; G89.29 Other chronic pain; M25.551 Pain in right hip; M46.1 Sacroiliitis, not elsewhere classified
CPT/HCPCS: 99212; G0463

== ENCOUNTER → 2022-10-27 14:11 | Outpatient (POV) | payer OTHER, SELFPAY ==
--- NOTE | 2022-10-27 14:42 | A.OFFVIS_ITS ---
[facility] Pain Management SOAP Note Subjective:: Patient is a pleasant 52-year-old female who presents today for medication refill and follow-up. We are currently treating the patient for degenerative disc disease of cervical and lumbar spine with cervical and lumbar radiculopathy symptoms, chronic joint pain, low back pain, right hip pain, sacroiliitis. Today she rates her pain a 2 out of 10. Patient denies any new trauma or injury. She denies any change to location or type of pain she experiences. Patient is currently managed with [place] 10 mg 4 times a day. She denies any side effects from this medication. Her Ti is [id number]. Its been reviewed and appropriate. Review of Systems: General: No recent weight changes, no fever, no sleep disturbances Respiratory: No cough, no shortness of air, no recurring pulmonary infections Cardiovascular/peripheral vascular: No chest pain, no palpitations, no edema, no shortness of breath Gastrointestinal: No new onset incontinence, normal bowel movements reported Genitourinary: No new onset incontinence Musculoskeletal: Low back pain Psychiatric: [Normal mood/affect] Neurological: [Denies weakness in extremities], [denies balance issues] Objective:: Physical Exam: General: Alert and oriented x3, no acute distress, pleasant and cooperative Lungs: Respirations even and unlabored, symmetrical chest expansion Eyes: PERRL Musculoskeletal: Flexion and extension of lumbar [spine] somewhat guarded secondary to pain, [antalgic gait noted] Neurological: Speech clear, no gross sensory deficit Assessment:: Degenerative disc disease of cervical and lumbar spine with cervical and lumbar radiculopathy symptoms, chronic joint pain, low back pain, right hip pain, sacroiliitis Plan:: I will refill the patient's [place] 10 mg 4 times a day and provide a 1 month supply of this medication. Patient will return to clinic in 1 month for reevaluation of symptoms, medication refill and follow-up. Patient has been advised of risks of oversedation with the prescribed medication. Narcan has been offered to the patient in the event of oversedation. Patient has been advised that a family member should also be educated regarding administration of Narcan. Patient has been instructed to contact the clinic with any concerns before the next appointment. Dr. Salas has reviewed this note and agrees with this plan of care. This note was dictated using voice recognition software and make contain errors or omissions. [facility] Disclaimer: The information contained in this section may have been updated after the patient was seen, as this information can be updated by other users. Social History Smoking Status: Never smoker alcohol intake: never current occupational status: other Travel in the last 8 weeks: None
[2022-10-27 15:31] VITALS: BP 115/78; PULSE 89; RESP 18; O2SAT 99; BMI 31.2
== END | disposition home or self-care (01) ==
PROVIDERS: Visit Provider Nurse Practitioner Family
DX: M50.10 Cervical disc disorder with radiculopathy, unspecified cervical region (principal); M51.16 Intervertebral disc disorders with radiculopathy, lumbar region; M25.50 Pain in unspecified joint; M54.50 Low back pain, unspecified; M25.551 Pain in right hip; M46.1 Sacroiliitis, not elsewhere classified
CPT/HCPCS: 99212; G0463

== ENCOUNTER → 2022-11-24 12:57 | Outpatient (POV) | payer OTHER, SELFPAY ==
--- NOTE | 2022-11-24 13:18 | EXP.PAIN.SOA ---
[facility] Pain Management SOAP Note Subjective:: Patient is a pleasant 52-year-old female who presents today for medication refill. We are currently treating the patient for degenerative disc disease of cervical and lumbar spine with cervical and lumbar radiculopathy symptoms. Today she rates her pain a 3 out of 10. Patient denies any new trauma or injury. She is currently managed with [place] 10 mg 4 times a day. She states this medication continues to provide additional improvement of her symptoms. Patient denies any side effects from this medication. Her Ti is [id number]. Its been reviewed and appropriate. Review of Systems: General: No recent weight changes, no fever, no sleep disturbances Respiratory: No cough, no shortness of air, no recurring pulmonary infections Cardiovascular/peripheral vascular: No chest pain, no palpitations, no edema, no shortness of breath Gastrointestinal: No new onset incontinence, normal bowel movements reported Genitourinary: No new onset incontinence Musculoskeletal: Low back pain Psychiatric: [Normal mood/affect] Neurological: [Denies weakness in extremities], [denies balance issues] Objective:: Physical Exam: General: Alert and oriented x3, no acute distress, pleasant and cooperative Lungs: Respirations even and unlabored, symmetrical chest expansion Eyes: PERRL Musculoskeletal: Flexion and extension of lumbar [spine] somewhat guarded secondary to pain, [antalgic gait noted] Neurological: Speech clear, no gross sensory deficit Assessment:: Degenerative disc disease of cervical and lumbar spine with cervical and lumbar radiculopathy symptoms Plan:: We will refill patient's [place] 10 mg 4 times a day provide a 1 month supply of this medication. Patient will return to clinic in 1 month for reevaluation of symptoms and medication refill. Patient has been advised of risks of oversedation with the prescribed medication. Narcan has been offered to the patient in the event of oversedation. Patient has been advised that a family member should also be educated regarding administration of Narcan. Patient has been instructed to contact the clinic with any concerns before the next appointment. Dr. Salas has reviewed this note and agrees with this plan of care. This note was dictated using voice recognition software and make contain errors or omissions. [facility] Disclaimer: The information contained in this section may have been updated after the patient was seen, as this information can be updated by other users. Social History Smoking Status: Never smoker alcohol intake: never current occupational status: other Travel in the last 8 weeks: None
[2022-11-24 13:59] VITALS: BP 125/79; PULSE 85; RESP 18; O2SAT 98; BMI 31.4
== END | disposition home or self-care (01) ==
PROVIDERS: Visit Provider Nurse Practitioner Family
DX: M50.10 Cervical disc disorder with radiculopathy, unspecified cervical region (principal); M51.16 Intervertebral disc disorders with radiculopathy, lumbar region
CPT/HCPCS: 99212; G0463

== ENCOUNTER → 2022-12-22 13:27 | Outpatient (POV) | payer OTHER, SELFPAY ==
--- NOTE | 2022-12-22 13:46 | A.OFFVIS_ITS ---
[facility] Pain Management SOAP Note Subjective:: Patient is a pleasant 52-year-old female who presents today for medication refill and 1 month follow-up. We are currently treating the patient for degenerative disc disease of cervical spine and lumbar spine with cervical and lumbar radiculopathy symptoms. Today she rates her pain a 3 out of 10. She states she continues to do well with her current medication and denies any new injuries. She is on [place] 10 mg 4 times a day. She states this medication does help. She is requesting a refill. Her Ti is [id number]. Its been reviewed and appropriate. Review of Systems: General: No recent weight changes, no fever, no sleep disturbances Respiratory: No cough, no shortness of air, no recurring pulmonary infections Cardiovascular/peripheral vascular: No chest pain, no palpitations, no edema, no shortness of breath Gastrointestinal: No new onset incontinence, normal bowel movements reported Genitourinary: No new onset incontinence Musculoskeletal: Low back pain Psychiatric: [Normal mood/affect] Neurological: [Denies weakness in extremities], [denies balance issues] Objective:: physical Exam: General: Alert and oriented x3, no acute distress, pleasant and cooperative Lungs: Respirations even and unlabored, symmetrical chest expansion Eyes: PERRL Musculoskeletal: Flexion and extension of lumbar spine within normal limits Neurological: Speech clear, no gross sensory deficit Assessment:: Degenerative disc disease of cervical and lumbar spine with cervical and lumbar radiculopathy symptoms Plan:: I will refill the patient's [place] 10 mg 4 times a day and provide a 1 month supply of this medication. Patient will return to clinic in 1 month for reevaluation of symptoms and medication refill. Patient has been advised of risks of oversedation with the prescribed medication. Narcan has been offered to the patient in the event of oversedation. Patient has been advised that a family member should also be educated regarding administration of Narcan. Patient has been instructed to contact the clinic with any concerns before the next appointment. Dr. Salas has reviewed this note and agrees with this plan of care. This note was dictated using voice recognition software and make contain errors or omissions. [facility] Disclaimer: The information contained in this section may have been updated after the patient was seen, as this information can be updated by other users. Social History Smoking Status: Never smoker alcohol intake: never current occupational status: other Travel in the last 8 weeks: None
[2022-12-22 14:43] VITALS: BP 150/68; PULSE 85; RESP 18; O2SAT 99; BMI 31.2
== END | disposition home or self-care (01) ==
PROVIDERS: Visit Provider Nurse Practitioner Family
DX: M50.10 Cervical disc disorder with radiculopathy, unspecified cervical region (principal); M54.16 Radiculopathy, lumbar region
CPT/HCPCS: 99212; G0463

== ENCOUNTER → 2023-01-19 14:00 | Outpatient (POV) | payer OTHER, SELFPAY ==
--- NOTE | 2023-01-19 14:04 | EXP.PAIN.SOA ---
[facility] Pain Management SOAP Note Subjective:: Patient is a pleasant 52-year-old female who presents today for medication refill. We are currently treating the patient for degenerative disc disease of cervical spine and lumbar spine with cervical and lumbar radiculopathy symptoms. Today she rates her pain a 2 out of 10. She denies any new changes or injuries from our last visit. She does state that she still continues to have occasional left shoulder pain that has been going on for the last several months. She does state that she does not have any specific trauma or injury that initially led to it however she will just occasionally have a random flareup with increased pain and limited range of motion. Patient has had shoulder injections in the past that did provide significant relief. She does state that at this time she thinks it is still tolerable and does not need injections. Patient states that she has tried muscle relaxers in the past that did seem to help with some of her symptoms however she does not have any refills. She is on [place] 10 mg 4 times a day. She denies any side effects from this medication. Her Ti has been reviewed and is appropriate Review of Systems: General: No recent weight changes, no fever, no sleep disturbances Respiratory: No cough, no shortness of air, no recurring pulmonary infections Cardiovascular/peripheral vascular: No chest pain, no palpitations, no edema, no shortness of breath Gastrointestinal: No new onset incontinence, normal bowel movements reported Genitourinary: No new onset incontinence Musculoskeletal: Low back pain Psychiatric: [Normal mood/affect] Neurological: [Denies weakness in extremities], [denies balance issues] Objective:: Physical Exam: General: Alert and oriented x3, no acute distress, pleasant and cooperative Lungs: Respirations even and unlabored, symmetrical chest expansion Eyes: PERRL Musculoskeletal: Flexion and extension of lumbar [spine] somewhat guarded secondary to pain Neurological: Speech clear, no gross sensory deficit Assessment:: Degenerative disc disease of cervical and lumbar spine with cervical and lumbar radiculopathy symptoms Plan:: I will refill the patient's [place] 10 mg 4 times a day and provide a 1 month supply of this medication. I have discussed with the patient that she may benefit from a left shoulder intra-articular injection however at this time she would like to wait. We will follow-up with this at future visits. I will send in a prescription of methocarbamol 500 mg at bedtime and provide a 30-day supply. Patient will return to clinic in 1 month for reevaluation of symptoms and plan of care. Patient has been advised of risks of oversedation with the prescribed medication. Narcan has been offered to the patient in the event of oversedation. Patient has been advised that a family member should also be educated regarding administration of Narcan. Patient has been instructed to contact the clinic with any concerns before the next appointment. Dr. Salas has reviewed this note and agrees with this plan of care. This note was dictated using voice recognition software and make contain errors or omissions. [facility] Disclaimer: The information contained in this section may have been updated after the patient was seen, as this information can be updated by other users. Social History Smoking Status: Never smoker alcohol intake: never current occupational status: other Travel in the last 8 weeks: None
[2023-01-19 14:58] VITALS: BP 127/79; PULSE 88; RESP 18; O2SAT 97; BMI 31.6
[2023-01-19 16:19] LABS: Amphetamine/Metha Screen,Urine Negative ng/ml (<1000); Barbiturates Screen,Urine Negative ng/ml (<200)
[2023-01-19 16:21] LABS: Benzodiazepines Screen,Urine Negative ng/ml (<200)
[2023-01-19 16:22] LABS: Cannabinoid Screen,Urine Negative ng/ml (<50)
[2023-01-19 16:23] LABS: Cocaine Screen,Urine Negative ng/ml (<300); Methadone Screen,Urine Negative ng/ml (<300)
[2023-01-19 16:24] LABS: Opiate Screen,Urine Positive ng/ml (<300)
[2023-01-19 16:25] LABS: Phencyclidine Screen,Urine Negative ng/ml (<25)
[2023-02-02 06:22] LABS: Codeine Negative (Cutoff=100); Hydrocodone Positive (.); Hydromorphone Positive (.); Morphine Negative (Cutoff=100); Opiates Positive (.)
== END | disposition home or self-care (01) ==
PROVIDERS: PCP Nurse Practitioner Family; Visit Provider Nurse Practitioner Family
DX: M50.10 Cervical disc disorder with radiculopathy, unspecified cervical region (principal); M51.16 Intervertebral disc disorders with radiculopathy, lumbar region; M25.512 Pain in left shoulder
CPT/HCPCS: 80305; 80361; 80365; 99212; G0463; G0480

== ENCOUNTER → 2023-02-23 13:50 | Outpatient (POV) | payer OTHER, SELFPAY ==
--- NOTE | 2023-02-23 14:30 | A.OFFVIS_ITS ---
[facility] Pain Management SOAP Note Subjective:: Patient is a pleasant 52-year-old female who presents today for medication refill and follow-up. We are currently treating the patient for degenerative disc disease of cervical and lumbar spine with cervical and lumbar radiculopathy symptoms. Today she rates her pain a 3 out of 10. Patient denies any new trauma or injury since her last visit. She states she is still doing well with her current medications. She does state that the muscle relaxer of methocarbamol 500 mg at night has helped however she does not use this except for days when it is more severe. Patient is also managed with [place] 10 mg 4 times a day. She denies any side effects from this medication. Her Ti has been reviewed and is appropriate. Review of Systems: General: No recent weight changes, no fever, no sleep disturbances Respiratory: No cough, no shortness of air, no recurring pulmonary infections Cardiovascular/peripheral vascular: No chest pain, no palpitations, no edema, no shortness of breath Gastrointestinal: No new onset incontinence, normal bowel movements reported Genitourinary: No new onset incontinence Musculoskeletal: Low back pain Psychiatric: [Normal mood/affect] Neurological: [Denies weakness in extremities], [denies balance issues] Objective:: Physical Exam: General: Alert and oriented x3, no acute distress, pleasant and cooperative Lungs: Respirations even and unlabored, symmetrical chest expansion Eyes: PERRL Musculoskeletal: Flexion and extension of lumbar [spine] somewhat guarded secondary to pain Neurological: Speech clear, no gross sensory deficit Assessment:: Degenerative disc disease of cervical and lumbar spine with cervical and lumbar radiculopathy symptoms Plan:: I will refill the patient's [place] 10 mg 4 times a day and provide a 1 month supply of this medication. Patient will return to the clinic in 1 month for reevaluation of symptoms and plan of care. Patient has been advised of risks of oversedation with the prescribed medication. Narcan has been offered to the patient in the event of oversedation. Patient has been advised that a family member should also be educated regarding administration of Narcan. Patient has been instructed to contact the clinic with any concerns before the next appointment. Dr. Salas has reviewed this note and agrees with this plan of care. This note was dictated using voice recognition software and make contain errors or omissions. [facility] Disclaimer: The information contained in this section may have been updated after the patient was seen, as this information can be updated by other users. Social History Smoking Status: Never smoker alcohol intake: never current occupational status: other Travel in the last 8 weeks: None
[2023-02-23 15:08] VITALS: BP 119/76; PULSE 90; RESP 20; O2SAT 99; BMI 31.6
== END | disposition home or self-care (01) ==
PROVIDERS: Visit Provider Nurse Practitioner Family
DX: M50.10 Cervical disc disorder with radiculopathy, unspecified cervical region (principal); M51.16 Intervertebral disc disorders with radiculopathy, lumbar region
CPT/HCPCS: 99212; G0463

== ENCOUNTER → 2023-03-16 09:46 | Outpatient (POV) | payer OTHER, SELFPAY ==
[2023-03-16 10:00] VITALS: BP 136/67; PULSE 93; RESP 18; O2SAT 96; BMI 31.6
--- NOTE | 2023-03-16 10:22 | A.OFFVIS_ITS ---
[facility] Pain Management SOAP Note Subjective:: Patient is a pleasant 52-year-old female who presents today for medication refill and follow-up. We are currently treating the patient for degenerative disc disease of cervical and lumbar spine with cervical and lumbar radiculopathy symptoms. Today she rates her pain a 4 out of 10. Patient denies any new trauma or injury. Patient is currently managed with methocarbamol 500 mg at night and [place] 10 mg 4 times a day. She denies any side effects from this medication. She states she still does not need any refills on her muscle relaxer. Her Ti has been reviewed and is appropriate. Review of Systems: General: No recent weight changes, no fever, no sleep disturbances Respiratory: No cough, no shortness of air, no recurring pulmonary infections Cardiovascular/peripheral vascular: No chest pain, no palpitations, no edema, no shortness of breath Gastrointestinal: No new onset incontinence, normal bowel movements reported Genitourinary: No new onset incontinence Musculoskeletal: Low back pain Psychiatric: [Normal mood/affect] Neurological: [Denies weakness in extremities], [denies balance issues] Objective:: Physical Exam: General: Alert and oriented x3, no acute distress, pleasant and cooperative Lungs: Respirations even and unlabored, symmetrical chest expansion Eyes: PERRL Musculoskeletal: Flexion and extension of lumbar [spine] somewhat guarded secondary to pain, [antalgic gait noted] Neurological: Speech clear, no gross sensory deficit Assessment:: Degenerative disc disease of cervical and lumbar spine with cervical and lumbar radiculopathy symptoms Plan:: We will refill the patient's [place] 10 mg 4 times a day and provide a 1 month supply of this medication. Patient will return to clinic in 1 month for reeval uation of symptoms and plan of care. Patient has been advised of risks of oversedation with the prescribed medication. Narcan has been offered to the patient in the event of oversedation. Patient has been advised that a family member should also be educated regarding administration of Narcan. Patient has been instructed to contact the clinic with any concerns before the next appointment. Dr. Salas has reviewed this note and agrees with this plan of care. This note was dictated using voice recognition software and make contain errors or omissions. [facility] Disclaimer: The information contained in this section may have been updated after the patient was seen, as this information can be updated by other users. Social History Smoking Status: Never smoker alcohol intake: never current occupational status: other Travel in the last 8 weeks: None
== END | disposition home or self-care (01) ==
PROVIDERS: Visit Provider Nurse Practitioner Family
DX: M50.10 Cervical disc disorder with radiculopathy, unspecified cervical region (principal); M51.16 Intervertebral disc disorders with radiculopathy, lumbar region
CPT/HCPCS: 99212; G0463

== ENCOUNTER → 2023-04-13 08:50 | Outpatient (POV) | payer OTHER, SELFPAY ==
--- NOTE | 2023-04-13 08:55 | EXP.PAIN.SOA ---
[facility] Pain Management SOAP Note Subjective:: Patient is a pleasant 52-year-old female who presents today for medication refill. We are currently treating the patient for degenerative disc disease of cervical and lumbar spine with cervical and lumbar radiculopathy symptoms. Today she rates her pain a 4 out of 10. Patient denies any new trauma or injury. She does state that today is a little bit worse of a day and that her neck was flaring up last following. Patient does believe part of it is weather related. She is currently prescribed methocarbamol 500 mg at night and [place] 10 mg 4 times a day. She denies any side effects from this medication. Her Ti has been reviewed and is appropriate. Review of Systems: General: No recent weight changes, no fever, no sleep disturbances Respiratory: No cough, no shortness of air, no recurring pulmonary infections Cardiovascular/peripheral vascular: No chest pain, no palpitations, no edema, no shortness of breath Gastrointestinal: No new onset incontinence, normal bowel movements reported Genitourinary: No new onset incontinence Musculoskeletal: Low back pain Psychiatric: [Normal mood/affect] Neurological: [Denies weakness in extremities], [denies balance issues] Objective:: Physical Exam: General: Alert and oriented x3, no acute distress, pleasant and cooperative Lungs: Respirations even and unlabored, symmetrical chest expansion Eyes: PERRL Musculoskeletal: Flexion and extension of lumbar [spine] somewhat guarded secondary to pain, [antalgic gait noted] Neurological: Speech clear, no gross sensory deficit Assessment:: Degenerative disc disease of cervical and lumbar spine with cervical and lumbar radiculopathy symptoms Plan:: I will refill the patient's [place] 10 mg 4 times a day and provide a 1 month supply of these medications. Patient will return to clinic in 1 month for reevaluation of symptoms and plan of care. Patient has been advised of risks of oversedation with the prescribed medication. Narcan has been offered to the patient in the event of oversedation. Patient has been advised that a family member should also be educated regarding administration of Narcan. Patient has been instructed to contact the clinic with any concerns before the next appointment. Dr. Salas has reviewed this note and agrees with this plan of care. This note was dictated using voice recognition software and make contain errors or omissions. [facility] Disclaimer: The information contained in this section may have been updated after the patient was seen, as this information can be updated by other users. Social History Smoking Status: Never smoker alcohol intake: never current occupational status: other Travel in the last 8 weeks: None
[2023-04-13 12:23] VITALS: BP 157/82; PULSE 94; RESP 18; O2SAT 97; BMI 31.6
== END | disposition home or self-care (01) ==
PROVIDERS: Visit Provider Nurse Practitioner Family
DX: M50.10 Cervical disc disorder with radiculopathy, unspecified cervical region (principal); M51.16 Intervertebral disc disorders with radiculopathy, lumbar region
CPT/HCPCS: 99212; G0463

== ENCOUNTER → 2023-05-22 08:59 | Outpatient (POV) | payer OTHER, SELFPAY ==
--- NOTE | 2023-05-22 09:20 | EXP.PAIN.SOA ---
[facility] Pain Management SOAP Note Subjective:: Patient is a pleasant 53-year-old female who presents today for medication refill and follow-up. We are currently treating the patient for degenerative disc disease of the cervical and lumbar spine with cervical and lumbar radiculopathy symptoms. Today she rates her pain at 3 out of 10. Patient denies any new trauma or injury. She does state that she continues to do well with her current medicines. She is prescribed methocarbamol 500 mg at bedtime and [place] 10 mg 4 times a day. She denies any side effects from this medication. Her Ti has been reviewed and is appropriate. Review of Systems: General: No recent weight changes, no fever, no sleep disturbances Respiratory: No cough, no shortness of air, no recurring pulmonary infections Cardiovascular/peripheral vascular: No chest pain, no palpitations, no edema, no shortness of breath Gastrointestinal: No new onset incontinence, normal bowel movements reported Genitourinary: No new onset incontinence Musculoskeletal: Low back pain Psychiatric: [Normal mood/affect] Neurological: [Denies weakness in extremities], [denies balance issues] Objective:: Physical Exam: General: Alert and oriented x3, no acute distress, pleasant and cooperative Lungs: Respirations even and unlabored, symmetrical chest expansion Eyes: PERRL Musculoskeletal: Flexion and extension of lumbar [spine] somewhat guarded secondary to pain, [antalgic gait noted] Neurological: Speech clear, no gross sensory deficit Assessment:: Degenerative disc disease of cervical and lumbar spine with cervical and lumbar radiculopathy symptoms Plan:: I will refill the patient's methocarbamol 500 mg at bedtime and [place] 10 mg 4 times a day and provide a 1 month supply of these medications. Patient will be scheduled for for follow-up in 1 month for reevaluation of symptoms and plan of care. Risks and benefits of the medication have been explained in detail to the patient. The patient does understand the risk of dependence on the medication when given over a prolonged period. Patient has been advised of risks of oversedation with the prescribed medication. Narcan has been offered to the paitent in the event of oversedation. Patient has been advised that a family member should also be educated regarding administration of Narcan. The patient has been advised to consult with his/her primary care provider and pharmacist regarding drug-drug interaction of medications currently prescribed. Patient has been prescribed a controlled substance after being counseled on the medication, medication safety, and possible side effects. Opioid contract was reviewed and signed by the patient, and that they have agreed to all of the terms set forth by our compliance program. Patient has been instructed to contact the clinic with any concerns before the next appointment. Dr. Salas has reviewed this note and agrees with this plan of care. This note was dictated using voice recognition software and make contain errors or omissions. [facility] Disclaimer: The information contained in this section may have been updated after the patient was seen, as this information can be updated by other users. Social History Smoking Status: Never smoker alcohol intake: never current occupational status: employed Travel in the last 8 weeks: None
[2023-05-22 09:33] VITALS: BP 127/70; PULSE 80; RESP 18; O2SAT 98; BMI 30.7
[2023-05-22 09:59] LABS: Barbiturates Screen,Urine Negative ng/ml (<200); Benzodiazepines Screen,Urine Negative ng/ml (<200)
[2023-05-22 10:00] LABS: Amphetamine/Metha Screen,Urine Negative ng/ml (<1000)
[2023-05-22 10:01] LABS: Cannabinoid Screen,Urine Negative ng/ml (<50)
[2023-05-22 10:02] LABS: Cocaine Screen,Urine Negative ng/ml (<300)
[2023-05-22 10:03] LABS: Opiate Screen,Urine Positive ng/ml (<300)
[2023-05-22 10:04] LABS: Phencyclidine Screen,Urine Negative ng/ml (<25)
[2023-05-22 10:07] LABS: Methadone Screen,Urine Negative ng/ml (<300)
[2023-05-25 18:49] LABS: Codeine Negative (Cutoff=100); Hydrocodone Positive (.); Hydromorphone Positive (.); Morphine Negative (Cutoff=100); Opiates Positive (.)
== END | disposition home or self-care (01) ==
PROVIDERS: Visit Provider Nurse Practitioner Family
DX: M50.10 Cervical disc disorder with radiculopathy, unspecified cervical region (principal); M51.16 Intervertebral disc disorders with radiculopathy, lumbar region
CPT/HCPCS: 80307; 80361; 80365; 99212; G0463; G0480

== ENCOUNTER 2023-06-16 11:06 | Outpatient (POV) | payer OTHER, SELFPAY ==
[2023-06-16 11:12] VITALS: BP 151/81; PULSE 77; RESP 18; O2SAT 97; BMI 29.9
--- NOTE | 2023-06-16 11:17 | EXP.PAIN.SOA ---
[facility] Pain Management SOAP Note Subjective:: Patient is a pleasant 53-year-old female who presents today for medication refill and follow-up. Today she rates her pain at 3 out of 10. She denies any new trauma or injury. She does states she is doing well with her medications. She is prescribed methocarbamol 500 mg at bedtime and [place] 10 mg 4 times a day. She denies any side effects from these medications. She does state that she does not need any refills on the muscle relaxer. Her Ti has been reviewed and is appropriate. Review of Systems: General: No recent weight changes, no fever, no sleep disturbances Respiratory: No cough, no shortness of air, no recurring pulmonary infections Cardiovascular/peripheral vascular: No chest pain, no palpitations, no edema, no shortness of breath Gastrointestinal: No new onset incontinence, normal bowel movements reported Genitourinary: No new onset incontinence Musculoskeletal: Low back pain Psychiatric: [Normal mood/affect] Neurological: [Denies weakness in extremities], [denies balance issues] Objective:: Physical Exam: General: Alert and oriented x3, no acute distress, pleasant and cooperative Lungs: Respirations even and unlabored, symmetrical chest expansion Eyes: PERRL Musculoskeletal: Flexion and extension of lumbar [spine] somewhat guarded secondary to pain, [antalgic gait noted] Neurological: Speech clear, no gross sensory deficit Assessment:: Degenerative disc disease of cervical and lumbar spine with cervical and lumbar radiculopathy symptoms Plan:: I will refill the patient's [place] 10 mg 4 times a day and provide a 1 month supply of this medication. Patient will return to clinic in 1 month for reevaluation of symptoms and plan of care. Risks and benefits of the medication have been explained in detail to the patient. The patient does understand the risk of dependence on the medication when given over a prolonged period. Patient has been advised of risks of oversedation with the prescribed medication. Narcan has been offered to the paitent in the event of oversedation. Patient has been advised that a family member should also be educated regarding administration of Narcan. The patient has been advised to consult with his/her primary care provider and pharmacist regarding drug-drug interaction of medications currently prescribed. Patient has been prescribed a controlled substance after being counseled on the medication, medication safety, and possible side effects. Opioid contract was reviewed and signed by the patient, and that they have agreed to all of the terms set forth by our compliance program. Patient has been instructed to contact the clinic with any concerns before the next appointment. Dr. Salas has reviewed this note and agrees with this plan of care. This note was dictated using voice recognition software and make contain errors or omissions. [facility] Disclaimer: The information contained in this section may have been updated after the patient was seen, as this information can be updated by other users. Social History Smoking Status: Never smoker alcohol intake: never current occupational status: other Travel in the last 8 weeks: None
== END 2023-06-16 23:59 | disposition home or self-care (01) ==
PROVIDERS: Visit Provider Nurse Practitioner Family
DX: M50.10 Cervical disc disorder with radiculopathy, unspecified cervical region (principal); M51.16 Intervertebral disc disorders with radiculopathy, lumbar region
CPT/HCPCS: 99212; G0463

== ENCOUNTER 2023-07-17 09:14 | Outpatient (POV) | payer OTHER, SELFPAY ==
[2023-07-17 09:26] VITALS: BP 150/88; PULSE 83; RESP 18; TEMP 36.7; O2SAT 98; BMI 67.8
--- NOTE | 2023-07-17 09:41 | EXP.PAIN.SOA ---
[facility] Pain Management SOAP Note Subjective:: Patient is a pleasant 53-year-old female who presents today for medication refill. Today she rates her pain a 2 out of 10. Patient denies any new trauma or injury. Patient is currently managed with methocarbamol 500 mg at night and [place] 10 mg 4 times a day. She denies any side effects from this medication. Her Ti has been reviewed and is appropriate. Review of Systems: General: No recent weight changes, no fever, no sleep disturbances Respiratory: No cough, no shortness of air, no recurring pulmonary infections Cardiovascular/peripheral vascular: No chest pain, no palpitations, no edema, no shortness of breath Gastrointestinal: No new onset incontinence, normal bowel movements reported Genitourinary: No new onset incontinence Musculoskeletal: Low back pain Psychiatric: [Normal mood/affect] Neurological: [Denies weakness in extremities], [denies balance issues] Objective:: Physical Exam: General: Alert and oriented x3, no acute distress, pleasant and cooperative Lungs: Respirations even and unlabored, symmetrical chest expansion Eyes: PERRL Musculoskeletal: Flexion and extension of lumbar [spine] somewhat guarded secondary to pain, [antalgic gait noted] Neurological: Speech clear, no gross sensory deficit Assessment:: Degenerative disc disease of cervical and lumbar spine with cervical and lumbar radiculopathy symptoms Plan:: I will refill the patient's [place] 10 mg 4 times a day and methocarbamol 500 mg at night and provide a 1 month supply of this medication. Patient will return to clinic in 1 month for reevaluation of symptoms and plan of care. Risks and benefits of the medication have been explained in detail to the patient. The patient does understand the risk of dependence on the medication when given over a prolonged period. Patient has been advised of risks of oversedation with the prescribed medication. Narcan has been offered to the paitent in the event of oversedation. Patient has been advised that a family member should also be educated regarding administration of Narcan. The patient has been advised to consult with his/her primary care provider and pharmacist regarding drug-drug interaction of medications currently prescribed. Patient has been prescribed a controlled substance after being counseled on the medication, medication safety, and possible side effects. Opioid contract was reviewed and signed by the patient, and that they have agreed to all of the terms set forth by our compliance program. Patient has been instructed to contact the clinic with any concerns before the next appointment. Dr. Salas has reviewed this note and agrees with this plan of care. This note was dictated using voice recognition software and make contain errors or omissions. [facility] Disclaimer: The information contained in this section may have been updated after the patient was seen, as this information can be updated by other users. Medical History (Updated 07/17/23 @ 09:26 by Anderson Castellon RN) No significant past medical history Family History (Updated 07/17/23 @ 09:26 by Anderson Castellon RN) Other No significant family history Social History Smoking Status: Never smoker alcohol intake: never current occupational status: employed Travel in the last 8 weeks: None
== END 2023-07-17 23:59 | disposition home or self-care (01) ==
PROVIDERS: Visit Provider Nurse Practitioner Family
DX: M50.10 Cervical disc disorder with radiculopathy, unspecified cervical region (principal); M51.16 Intervertebral disc disorders with radiculopathy, lumbar region
CPT/HCPCS: 99212; G0463

== ENCOUNTER 2023-08-18 11:03 | Outpatient (POV) | payer OTHER, SELFPAY ==
[2023-08-18 11:11] VITALS: BP 130/84; PULSE 96; RESP 16; O2SAT 99; BMI 30.2
--- NOTE | 2023-08-18 11:16 | A.OFFVIS_ITS ---
[facility] Pain Management SOAP Note Subjective:: Patient is a pleasant 53-year-old female who presents today for medication refill and follow-up. Today she rates her pain at 3 out of 10. She denies any new trauma or injury. She does state that today she is taken off from work and she is getting to enjoy the day. Patient states she continues to get good relief with her current medications. She is prescribed methocarbamol 500 mg at night and [place] 10 mg 4 times a day. She denies any issues with these medications. Her Ti has been reviewed and is appropriate. Review of Systems: General: No recent weight changes, no fever, no sleep disturbances Respiratory: No cough, no shortness of air, no recurring pulmonary infections Cardiovascular/peripheral vascular: No chest pain, no palpitations, no edema, no shortness of breath Gastrointestinal: No new onset incontinence, normal bowel movements reported Genitourinary: No new onset incontinence Musculoskeletal: Low back pain Psychiatric: [Normal mood/affect] Neurological: [Denies weakness in extremities], [denies balance issues] Objective:: Physical Exam: General: Alert and oriented x3, no acute distress, pleasant and cooperative Lungs: Respirations even and unlabored, symmetrical chest expansion Eyes: PERRL Musculoskeletal: Flexion and extension of lumbar [spine] somewhat guarded secondary to pain, [antalgic gait noted] Neurological: Speech clear, no gross sensory deficit Assessment:: Degenerative disc disease of cervical and lumbar spine with cervical and lumbar radiculopathy symptoms Plan:: I will refill the patient's methocarbamol and [place] and provide a 1 month supply of these medications. Patient will return to clinic in 1 month for reevaluation of symptoms and plan of care. Risks and benefits of the medication have been explained in detail to the patient. The patient does understand the risk of dependence on the medication when given over a prolonged period. Patient has been advised of risks of oversedation with the prescribed medication. Narcan has been offered to the paitent in the event of oversedation. Patient has been advised that a family member should also be educated regarding administration of Narcan. The patient has been advised to consult with his/her primary care provider and pharmacist regarding drug-drug interaction of medications currently prescribed. Patient has been prescribed a controlled substance after being counseled on the medication, medication safety, and possible side effects. Opioid contract was reviewed and signed by the patient, and that they have agreed to all of the terms set forth by our compliance program. Patient has been instructed to contact the clinic with any concerns before the next appointment. Dr. Salas has reviewed this note and agrees with this plan of care. This note was dictated using voice recognition software and make contain errors or omissions. [facility] Disclaimer: The information contained in this section may have been updated after the patient was seen, as this information can be updated by other users. Medical History (Updated 07/17/23 @ 09:26 by Anderson Castellon RN) No significant past medical history Family History (Updated 07/17/23 @ 09:26 by Anderson Castellon RN) Other No significant family history Social History Smoking Status: Never smoker alcohol intake: never current occupational status: employed Travel in the last 8 weeks: None
== END 2023-08-18 23:59 | disposition home or self-care (01) ==
PROVIDERS: Visit Provider Nurse Practitioner Family
DX: M50.10 Cervical disc disorder with radiculopathy, unspecified cervical region (principal); M51.16 Intervertebral disc disorders with radiculopathy, lumbar region
CPT/HCPCS: 99212; G0463

== ENCOUNTER 2023-09-20 10:55 | Outpatient (POV) | payer OTHER, SELFPAY ==
--- NOTE | 2023-09-20 11:05 | A.OFFVIS_ITS ---
[facility] Disclaimer: The information contained in this section may have been updated after the patient was seen, as this information can be updated by other users. Medical History (Updated 09/20/23 @ 11:06 by Sho Franco APRN) No significant past medical history Family History (Updated 07/17/23 @ 09:26 by Anderson Castellon RN) Other No significant family history Social History Smoking Status: Never smoker alcohol intake: never current occupational status: other Travel in the last 8 weeks: None PM Subjective & Objective Subjective Subjective:: Patient is a pleasant 53-year-old female who presents today for medication refill and follow-up. Today she rates her pain at 3 out of 10. She denies any new trauma or injury. She is prescribed methocarbamol 500 mg at night and [place] 10 mg 4 times a day. She denies any issues with these medications. She states she does not need refills on her muscle relaxers that she does not need these on a regular basis but uses them as needed. Her Ti has been reviewed and is appropriate. Review of Systems: General: No recent weight changes, no fever, no sleep disturbances Respiratory: No cough, no shortness of air, no recurring pulmonary infections Cardiovascular/peripheral vascular: No chest pain, no palpitations, no edema, no shortness of breath Gastrointestinal: No new onset incontinence, normal bowel movements reported Genitourinary: No new onset incontinence Musculoskeletal: Low back pain Psychiatric: [Normal mood/affect] Neurological: [Denies weakness in extremities], [denies balance issues] Pain at rest (0-10 scale): 3 Objective Objective:: Physical Exam: General: Alert and oriented x3, no acute distress, pleasant and cooperative Lungs: Respirations even and unlabored, symmetrical chest expansion Eyes: PERRL Musculoskeletal: Flexion and extension of lumbar [spine] somewhat guarded secondary to pain, [antalgic gait noted] Neurological: Speech clear, no gross sensory deficit Has patient had previous pain injection?: No Conservative treatment options previously tried: Prescription medications Length of treatment: >6 weeks Meds Home Medications and Allergies Home Medications Medication Instructions Recorded Confirmed Type pantoprazole 40 mg tablet,delayed 40 mg PO DAILY GERD 10/22/20 08/18/23 History release hydroxyzine HCl 25 mg tablet 25 mg PO DAILY PRN Anxiety #5 tabs 01/14/21 08/18/23 Rx diclofenac sodium 75 mg 75 mg PO BID Pain 04/26/21 08/18/23 History tablet,delayed release famotidine 20 mg tablet 20 mg PO HS GERD 11/04/21 08/18/23 History baclofen 5 mg tablet 5 mg PO TID . 03/25/22 08/18/23 History hydrocodone 10 mg-acetaminophen 1 tab PO QID Pain #120 tabs 08/18/23 Rx 325 mg tablet methocarbamol 500 mg tablet 500 mg PO HS #30 tabs 08/18/23 Rx New Prescriptions to Start Prescriptions: Allergies Allergy/AdvReac Type Severity Reaction Status Date / Time Penicillins [PENICILLINS] Allergy Unknown UNKNOWN Verified 03/25/22 10:07 Assessment and Plan *Assessment and plan (1) Degenerative disc disease, lumbar: Status: Acute Category: Medical Code(s): M51.36 - Other intervertebral disc degeneration, lumbar region (2) Lumbar radiculopathy: Status: Acute Category: Medical Code(s): M54.16 - Radiculopathy, lumbar region Plan I will refill the patient's [place] and provide a 1 month supply of this medication. Patient will return to clinic in 1 month for reevaluation of symptoms and plan of care. Risks and benefits of the medication have been explained in detail to the patient. The patient does understand the risk of dependence on the medication when given over a prolonged period. Patient has been advised of risks of oversedation with the prescribed medication. Narcan has been offered to the paitent in the event of oversedation. Patient has been advised that a family member should also be educated regarding administration of Narcan. The patient has been advised to consult with his/her primary care provider and pharmacist regarding drug-drug interaction of medications currently prescribed. Patient has been prescribed a controlled substance after being counseled on the medication, medication safety, and possible side effects. Opioid contract was reviewed and signed by the patient, and that they have agreed to all of the terms set forth by our compliance program. Patient has been instructed to contact the clinic with any concerns before the next appointment. Dr. Salas has reviewed this note and agrees with this plan of care. This note was dictated using voice recognition software and make contain errors or omissions.
[2023-09-20 11:22] VITALS: BP 128/84; PULSE 83; RESP 16; O2SAT 100; BMI 31.6
== END 2023-09-20 23:59 | disposition home or self-care (01) ==
PROVIDERS: Visit Provider Nurse Practitioner Family
DX: M51.36 Other intervertebral disc degeneration, lumbar region (principal)
CPT/HCPCS: 99212; G0463

== ENCOUNTER 2023-10-19 09:33 | Outpatient (POV) | payer OTHER, SELFPAY ==
[2023-10-19 09:46] VITALS: BP 144/75; PULSE 85; RESP 18; O2SAT 99; BMI 31.2
--- NOTE | 2023-10-19 10:18 | EXP.PAIN.SOA ---
[facility] Disclaimer: The information contained in this section may have been updated after the patient was seen, as this information can be updated by other users. Medical History (Updated 10/19/23 @ 10:19 by Sho rFanco APRN) No significant past medical history Family History Other No significant family history Social History Smoking Status: Never smoker alcohol intake: never current occupational status: other Travel in the last 8 weeks: None PM Subjective & Objective Subjective Subjective:: Patient is a pleasant 53-year-old female who presents today for medication refill and follow-up. Today she rates her pain a 3 out of 10. Patient denies any new trauma or injury. She does state that she continues to have left hip pain that is been going on for several months. She describes it as an aching, throbbing sensation that is worse with increased activity. Patient states it is interfering with her ability to perform activities of daily living. Patient denies having ever looked into possible injury and is asking whether or not we can look at some imaging. Patient is currently managed with [place] 10 mg 4 times a day and methocarbamol 500 mg at night. She denies any side effects from this medication. Her Ti has been reviewed and is appropriate. Review of Systems: General: No recent weight changes, no fever, no sleep disturbances Respiratory: No cough, no shortness of air, no recurring pulmonary infections Cardiovascular/peripheral vascular: No chest pain, no palpitations, no edema, no shortness of breath Gastrointestinal: No new onset incontinence, normal bowel movements reported Genitourinary: No new onset incontinence Musculoskeletal: Left hip pain Psychiatric: [Normal mood/affect] Neurological: [Denies weakness in extremities], [denies balance issues] Pain at rest (0-10 scale): 3 Objective Objective:: Physical Exam: General: Alert and oriented x3, no acute distress, pleasant and cooperative Lungs: Respirations even and unlabored, symmetrical chest expansion Eyes: PERRL Musculoskeletal: Flexion and extension of left hip somewhat guarded secondary to pain, [antalgic gait noted] Neurological: Speech clear, no gross sensory deficit Has patient had previous pain injection?: No Conservative treatment options previously tried: Home exercise plan Length of treatment: Longer than 6 weeks and Prescription medications Length of treatment: Longer than 6 weeks Meds Home Medications and Allergies Home Medications ?Medication ?Instructions ?Recorded ?Confirmed ?Type pantoprazole 40 mg tablet,delayed 40 mg PO DAILY GERD 10/22/20 09/20/23 History release hydroxyzine HCl 25 mg tablet 25 mg PO DAILY PRN Anxiety #5 tabs 01/14/21 09/20/23 Rx diclofenac sodium 75 mg 75 mg PO BID Pain 04/26/21 09/20/23 History tablet,delayed release famotidine 20 mg tablet 20 mg PO HS GERD 11/04/21 09/20/23 History baclofen 5 mg tablet 5 mg PO TID . 03/25/22 09/20/23 History methocarbamol 500 mg tablet 500 mg PO HS #30 tabs 08/18/23 09/20/23 Rx hydrocodone 10 mg-acetaminophen 1 tab PO QID Pain #120 tabs 09/20/23 Rx 325 mg tablet New Prescriptions to Start Prescriptions: Allergies Allergy/AdvReac Type Severity Reaction Status Date / Time Penicillins [PENICILLINS] Allergy Unknown UNKNOWN Verified 03/25/22 10:07 Assessment and Plan *Assessment and plan (1) Lumbar radiculopathy: Status: Acute Category: Medical Code(s): M54.16 - Radiculopathy, lumbar region (2) Degenerative disc disease, lumbar: Status: Acute Category: Medical Code(s): M51.36 - Other intervertebral disc degeneration, lumbar region (3) Chronic left hip pain: Status: Acute Category: Medical Code(s): M25.552 - Pain in left hip; G89.29 - Other chronic pain Plan Patient is experiencing worsening pain in her left hip that is been going on for months. I will order x-ray imaging with the plan to proceed forward with MRI without contrast. Patient is agreeable to this plan of care. I will refill the patient's methocarbamol and [place] and provide a 1 month supply of this medication. Patient will return to clinic in 1 month for reevaluation of symptoms and plan of care. Risks and benefits of the medication have been explained in detail to the patient. The patient does understand the risk of dependence on the medication when given over a prolonged period. Patient has been advised of risks of oversedation with the prescribed medication. Narcan has been offered to the paitent in the event of oversedation. Patient has been advised that a family member should also be educated regarding administration of Narcan. The patient has been advised to consult with his/her primary care provider and pharmacist regarding drug-drug interaction of medications currently prescribed. Patient has been prescribed a controlled substance after being counseled on the medication, medication safety, and possible side effects. Opioid contract was reviewed and signed by the patient, and that they have agreed to all of the terms set forth by our compliance program. Patient has been instructed to contact the clinic with any concerns before the next appointment. Dr. Salas has reviewed this note and agrees with this plan of care. This note was dictated using voice recognition software and make contain errors or omissions.
== END 2023-10-19 23:59 | disposition home or self-care (01) ==
PROVIDERS: Visit Provider Nurse Practitioner Family
DX: M51.16 Intervertebral disc disorders with radiculopathy, lumbar region (principal); M25.552 Pain in left hip; G89.29 Other chronic pain; Z73.89 Other problems related to life management difficulty; Z79.899 Other long term (current) drug therapy
CPT/HCPCS: 99212; G0463

== ENCOUNTER 2023-11-16 09:22 | Outpatient (POV) | payer OTHER, SELFPAY ==
--- NOTE | 2023-11-16 10:12 | A.OFFVIS_ITS ---
[facility] Disclaimer: The information contained in this section may have been updated after the patient was seen, as this information can be updated by other users. Medical History (Updated 11/16/23 @ 10:13 by Sho Franco APRN) No significant past medical history Family History Other No significant family history Social History Smoking Status: Never smoker alcohol intake: never current occupational status: other Travel in the last 8 weeks: None PM Subjective & Objective Subjective Subjective:: Patient is a pleasant 53-year-old female who presents today for medication refill and follow-up. Today she does rate her pain a 3 out of 10 in her overall chronic pain however she does state that she is still experiencing worsening pain in and around her left hip that is a dull ache that feels like it locks up her leg and goes into her groin. Patient does state that the pain is very positional and does interfere with her ability perform activities of daily living. Patient does state that this pain will go to a 6 out of 10. Patient does state that she did get a letter stating that her MRI had been approved however she has not quite gotten scheduled yet. Patient does state that the pain has continued to worsen from her last visit. Patient is currently managed with [place] 10 mg 4 times a day and methocarbamol 500 mg at bedtime. She denies any side effects from this medication. Her Ti has been reviewed and is appropriate. Review of Systems: General: No recent weight changes, no fever, no sleep disturbances Respiratory: No cough, no shortness of air, no recurring pulmonary infections Cardiovascular/peripheral vascular: No chest pain, no palpitations, no edema, no shortness of breath Gastrointestinal: No new onset incontinence, normal bowel movements reported Genitourinary: No new onset incontinence Musculoskeletal: Left hip/groin pain Psychiatric: [Normal mood/affect] Neurological: [Denies weakness in extremities], [denies balance issues] Pain at rest (0-10 scale): 6 Objective Objective:: Physical Exam: General: Alert and oriented x3, no acute distress, pleasant and cooperative Lungs: Respirations even and unlabored, symmetrical chest expansion Eyes: PERRL Musculoskeletal: Flexion and extension of lumbar [spine] somewhat guarded secondary to pain, [antalgic gait noted] point tenderness along left SI with positive left Jose's, Jorge's, Gaenslen's, compression and distraction exam Neurological: Speech clear, no gross sensory deficit Has patient had previous pain injection?: No Conservative treatment options previously tried: Home exercise plan Length of treatment: Longer than 12 weeks Meds Home Medications and Allergies Home Medications ?Medication ?Instructions ?Recorded ?Confirmed ?Type pantoprazole 40 mg tablet,delayed 40 mg PO DAILY GERD 10/22/20 09/20/23 History release hydroxyzine HCl 25 mg tablet 25 mg PO DAILY PRN Anxiety #5 tabs 01/14/21 09/20/23 Rx diclofenac sodium 75 mg 75 mg PO BID Pain 04/26/21 09/20/23 History tablet,delayed release famotidine 20 mg tablet 20 mg PO HS GERD 11/04/21 09/20/23 History baclofen 5 mg tablet 5 mg PO TID . 03/25/22 09/20/23 History hydrocodone 10 mg-acetaminophen 1 tab PO QID Pain #120 tabs 10/19/23 Rx 325 mg tablet methocarbamol 500 mg tablet 500 mg PO HS #30 tabs 10/19/23 Rx New Prescriptions to Start Prescriptions: Allergies Allergy/AdvReac Type Severity Reaction Status Date / Time Penicillins [PENICILLINS] Allergy Unknown UNKNOWN Verified 03/25/22 10:07 Assessment and Plan *Assessment and plan (1) Sacroiliitis: Status: Acute Category: Medical Code(s): M46.1 - Sacroiliitis, not elsewhere classified Plan Patient is experiencing worsening pain throughout her left hip and groin with limited range of motion. Patient did have point tenderness along her left SI with a positive left Jose's, Jorge's, Gaenslen's, compression and distraction exam. I did discuss with the patient that she may benefit from a left SI injection. Risk and benefits were discussed with the patient and she would like to proceed forward with this plan of care. Patient has tried and failed conservative therapy including continued at home stretching exercise for longer than 12 weeks. Patient will be scheduled for a left SI injection under fluoroscopy. I will also refill the patient's [place] and methocarbamol and provide a 1 month supply of this medication. Risks and benefits of the medication have been explained in detail to the patient. The patient does understand the risk of dependence on the medication when given over a prolonged period. Patient has been advised of risks of oversedation with the prescribed medication. Narcan has been offered to the paitent in the event of oversedation. Patient has been advised that a family member should also be educated regarding administration of Narcan. The patient has been advised to consult with his/her primary care provider and pharmacist regarding drug-drug interaction of medications currently prescribed. Patient has been prescribed a controlled substance after being counseled on the medication, medication safety, and possible side effects. Opioid contract was reviewed and signed by the patient, and that they have agreed to all of the terms set forth by our compliance program. Patient has been instructed to contact the clinic with any concerns before the next appointment. Dr. Salas has reviewed this note and agrees with this plan of care. This note was dictated using voice recognition software and make contain errors or omissions.
[2023-11-16 11:05] VITALS: BP 157/93; PULSE 84; RESP 16; O2SAT 99; BMI 31.2
== END 2023-11-16 23:59 | disposition home or self-care (01) ==
PROVIDERS: PCP Nurse Practitioner Family; Visit Provider Nurse Practitioner Family
DX: M46.1 Sacroiliitis, not elsewhere classified (principal); Z73.89 Other problems related to life management difficulty
CPT/HCPCS: 99212; G0463

== ENCOUNTER 2023-12-25 11:46 | Outpatient (POV) | payer OTHER, SELFPAY ==
--- NOTE | 2023-12-25 11:49 | EXP.PAIN.SOA ---
[facility] Disclaimer: The information contained in this section may have been updated after the patient was seen, as this information can be updated by other users. Medical History (Updated 11/16/23 @ 10:13 by Sho Franco APRN) No significant past medical history Family History Other No significant family history Social History Smoking Status: Never smoker alcohol intake: never current occupational status: employed Travel in the last 8 weeks: None PM Subjective & Objective Subjective Subjective:: Patient is a pleasant 53-year-old female who presents today for telehealth visit for medication refill and follow-up. Today she rates her pain a 3 out of 10. Patient denies any new injury or trauma. Patient does state that she has still been having issues along the left hip and that she had to reschedule her injection due to having to have updated lab work with her PCP. She does state that she would like to see about getting this rescheduled. Patient does states she is still having quite a bit of pain and it is interfering with her ability perform activities of daily living. Patient is currently managed with [place] 10 mg 4 times a day and methocarbamol 500 mg at night. She denies any side effects from this medication. Her Ti has been reviewed and is appropriate. Review of Systems: General: No recent weight changes, no fever, no sleep disturbances Respiratory: No cough, no shortness of air, no recurring pulmonary infections Cardiovascular/peripheral vascular: No chest pain, no palpitations, no edema, no shortness of breath Gastrointestinal: No new onset incontinence, normal bowel movements reported Genitourinary: No new onset incontinence Musculoskeletal: Left hip pain Psychiatric: [Normal mood/affect] Neurological: [Denies weakness in extremities], [denies balance issues] Pain at rest (0-10 scale): 3 Objective Objective:: General: Alert and oriented x3, pleasant and cooperative Lungs: Patient is able to say complete sentences without dyspnea Neurological: Speech clear Has patient had previous pain injection?: No Conservative treatment options previously tried: Home exercise plan Length of treatment: Longer than 12 weeks Meds Home Medications and Allergies Home Medications ?Medication ?Instructions ?Recorded ?Confirmed ?Type pantoprazole 40 mg tablet,delayed 40 mg PO DAILY GERD 10/22/20 11/16/23 History release hydroxyzine HCl 25 mg tablet 25 mg PO DAILY PRN Anxiety #5 tabs 01/14/21 11/16/23 Rx diclofenac sodium 75 mg 75 mg PO BID Pain 04/26/21 11/16/23 History tablet,delayed release famotidine 20 mg tablet 20 mg PO HS GERD 11/04/21 11/16/23 History baclofen 5 mg tablet 5 mg PO TID . 03/25/22 11/16/23 History hydrocodone 10 mg-acetaminophen 1 tab PO QID Pain #120 tabs 11/16/23 Rx 325 mg tablet methocarbamol 500 mg tablet 500 mg PO HS #30 tabs 11/16/23 Rx New Prescriptions to Start Prescriptions: Allergies Allergy/AdvReac Type Severity Reaction Status Date / Time Penicillins [PENICILLINS] Allergy Unknown UNKNOWN Verified 03/25/22 10:07 Assessment and Plan *Assessment and plan (1) Sacroiliitis: Status: Acute Category: Medical Code(s): M46.1 - Sacroiliitis, not elsewhere classified Plan Patient is still experiencing pain all along her left hip. I did discuss with the patient that we will get her rescheduled for her prior left SI injection. I will refill the patient's [place] and methocarbamol and provide a 1 month supply of this medication. Her visit did go on from [id number]. Patient did give verbal consent for this audio appointment. Patient will be contacted with the next follow-up appointment date for her left SI injection. Risks and benefits of the medication have been explained in detail to the patient. The patient does understand the risk of dependence on the medication when given over a prolonged period. Patient has been advised of risks of oversedation with the prescribed medication. Narcan has been offered to the paitent in the event of oversedation. Patient has been advised that a family member should also be educated regarding administration of Narcan. The patient has been advised to consult with his/her primary care provider and pharmacist regarding drug-drug interaction of medications currently prescribed. Patient has been prescribed a controlled substance after being counseled on the medication, medication safety, and possible side effects. Opioid contract was reviewed and signed by the patient, and that they have agreed to all of the terms set forth by our compliance program. Patient has been instructed to contact the clinic with any concerns before the next appointment. Dr. Salas has reviewed this note and agrees with this plan of care. This note was dictated using voice recognition software and make contain errors or omissions.
== END 2023-12-25 23:59 | disposition home or self-care (01) ==
PROVIDERS: Visit Provider Nurse Practitioner Family
DX: M46.1 Sacroiliitis, not elsewhere classified (principal)
CPT/HCPCS: 99212; G0463

== ENCOUNTER 2024-01-24 09:05 | Outpatient (POV) | payer OTHER, SELFPAY ==
--- NOTE | 2024-01-24 09:18 | EXP.PAIN.SOA ---
[facility] Disclaimer: The information contained in this section may have been updated after the patient was seen, as this information can be updated by other users. Medical History (Updated 11/16/23 @ 10:13 by Sho Franco APRN) No significant past medical history Family History Other No significant family history Social History Smoking Status: Never smoker alcohol intake: never current occupational status: other Travel in the last 8 weeks: None PM Subjective & Objective Subjective Subjective:: Patient is a pleasant 53-year-old female who presents today for telehealth visit for medication refill and follow-up. Today she rates her pain a 3 out of 10. Patient denies any new injury or trauma. Patient does states she is still having quite a bit of pain in her left hip and it is interfering with her ability perform activities of daily living. She does state that she missed her injection appointment yesterday because she could not get out of work and that she is still wanting to reschedule this appointment. Today's not as bad as when it has been. She states the pain does go up to a 6 at least. Patient does also state that she has been having more issues with her big toes as well as her elbows. Patient does need refills on her compounded cream. Patient is currently managed with [place] 10 mg 4 times a day and methocarbamol 500 mg at night. She denies any side effects from this medication. Her Ti has been reviewed and is appropriate. Review of Systems: General: No recent weight changes, no fever, no sleep disturbances Respiratory: No cough, no shortness of air, no recurring pulmonary infections Cardiovascular/peripheral vascular: No chest pain, no palpitations, no edema, no shortness of breath Gastrointestinal: No new onset incontinence, normal bowel movements reported Genitourinary: No new onset incontinence Musculoskeletal: Left hip pain Psychiatric: [Normal mood/affect] Neurological: [Denies weakness in extremities], [denies balance issues] Pain at rest (0-10 scale): 3 Objective Objective:: Physical Exam: General: Alert and oriented x3, no acute distress, pleasant and cooperative Lungs: Respirations even and unlabored, symmetrical chest expansion Eyes: PERRL Musculoskeletal: Flexion and extension of lumbar [spine] somewhat guarded secondary to pain, [antalgic gait noted] Neurological: Speech clear, no gross sensory deficit Has patient had previous pain injection?: No Conservative treatment options previously tried: Home exercise plan Length of treatment: Longer than 12 weeks Meds Home Medications and Allergies Home Medications ?Medication ?Instructions ?Recorded ?Confirmed ?Type pantoprazole 40 mg tablet,delayed 40 mg PO DAILY GERD 10/22/20 01/24/24 History release hydroxyzine HCl 25 mg tablet 25 mg PO DAILY PRN Anxiety #5 tabs 01/14/21 01/24/24 Rx diclofenac sodium 75 mg 75 mg PO BID Pain 04/26/21 01/24/24 History tablet,delayed release famotidine 20 mg tablet 20 mg PO HS GERD 11/04/21 01/24/24 History baclofen 5 mg tablet 5 mg PO TID . 03/25/22 01/24/24 History hydrocodone 10 mg-acetaminophen 1 tab PO QID Pain #120 tabs 12/25/23 01/24/24 Rx 325 mg tablet methocarbamol 500 mg tablet 500 mg PO HS #30 tabs 12/25/23 01/24/24 Rx New Prescriptions to Start Prescriptions: Allergies Allergy/AdvReac Type Severity Reaction Status Date / Time Penicillins [PENICILLINS] Allergy Unknown UNKNOWN Verified 03/25/22 10:07 Assessment and Plan *Assessment and plan (1) Lumbar radiculopathy: Status: Acute Category: Medical Code(s): M54.16 - Radiculopathy, lumbar region (2) Chronic left hip pain: Status: Acute Category: Medical Code(s): M25.552 - Pain in left hip; G89.29 - Other chronic pain (3) Sacroiliitis: Status: Acute Category: Medical Code(s): M46.1 - Sacroiliitis, not elsewhere classified (4) Degenerative disc disease, lumbar: Status: Acute Category: Medical Code(s): M51.36 - Other intervertebral disc degeneration, lumbar region Plan We will refill the patient's [place] and methocarbamol and provide a 1 month supply of these medications. Patient was counseled on just to let us know what her work schedule is and we will try and get her rescheduled for her prior injection. Patient agrees with this plan of care. I did discuss with the patient that I will send in 5 new refills on her compounded cream and to try this on her elbows and toe area and see if this provides additional improvement. Patient will return to clinic in 1 month for reevaluation of symptoms and plan of care. Risks and benefits of the medication have been explained in detail to the patient. The patient does understand the risk of dependence on the medication when given over a prolonged period. Patient has been advised of risks of oversedation with the prescribed medication. Narcan has been offered to the paitent in the event of oversedation. Patient has been advised that a family member should also be educated regarding administration of Narcan. The patient has been advised to consult with his/her primary care provider and pharmacist regarding drug-drug interaction of medications currently prescribed. Patient has been prescribed a controlled substance after being counseled on the medication, medication safety, and possible side effects. Opioid contract was reviewed and signed by the patient, and that they have agreed to all of the terms set forth by our compliance program. Patient has been instructed to contact the clinic with any concerns before the next appointment. Dr. Salas has reviewed this note and agrees with this plan of care. This note was dictated using voice recognition software and make contain errors or omissions. All injections are used with Lidocaine or Bupivacaine and Depo Medrol.
[2024-01-24 09:49] VITALS: BP 139/83; PULSE 81; RESP 14; O2SAT 99; BMI 31.2
== END 2024-01-24 23:59 | disposition home or self-care (01) ==
PROVIDERS: PCP Nurse Practitioner Family; Visit Provider Nurse Practitioner Family
DX: M51.16 Intervertebral disc disorders with radiculopathy, lumbar region (principal); M25.552 Pain in left hip; G89.29 Other chronic pain; M46.1 Sacroiliitis, not elsewhere classified; Z73.89 Other problems related to life management difficulty
CPT/HCPCS: 99212; G0463

== ENCOUNTER 2024-02-26 09:04 | Outpatient (POV) | payer OTHER, SELFPAY ==
[2024-02-26 09:53] VITALS: BP 138/81; PULSE 78; RESP 14; O2SAT 100; BMI 31.2
--- NOTE | 2024-02-26 09:54 | A.OFFVIS_ITS ---
[facility] Disclaimer: The information contained in this section may have been updated after the patient was seen, as this information can be updated by other users. Medical History (Updated 11/16/23 @ 10:13 by Sho Franco APRN) No significant past medical history Family History Other No significant family history Social History Smoking Status: Never smoker alcohol intake: never current occupational status: other PM Subjective & Objective Subjective Subjective:: Patient is a pleasant 53-year-old female who presents today for 1 month follow- up and medication refill. Today she rates her pain a 3 out of 10. She denies any new trauma or injury. She does state that she still been having a burning sensation in her big toes bilaterally and does feel like they do feel swollen in these times. She does also have complaints in her elbows as well as running across her fingers and her left hip. Patient states that a lot of it is just a dull soreness. Patient denies any other changes. She is currently managed with compounded cream, [place] 10 mg 4 times a day and methocarbamol 500 mg at bedtime. She denies any side effects. Patient states she does not think she needs refills on the muscle relaxer. She does state that she did talk to her primary care about the new aches and pains and that they did mention about possible gabapentin. She states that she was on this in the past but cannot remember why she stopped taking it.Her Ti has been reviewed and is appropriate. Review of Systems: General: No recent weight changes, no fever, no sleep disturbances Respiratory: No cough, no shortness of air, no recurring pulmonary infections Cardiovascular/peripheral vascular: No chest pain, no palpitations, no edema, no shortness of breath Gastrointestinal: No new onset incontinence, normal bowel movements reported Genitourinary: No new onset incontinence Musculoskeletal: Joint pain Psychiatric: [Normal mood/affect] Neurological: [Denies weakness in extremities], [denies balance issues] Pain at rest (0-10 scale): 3 Objective Objective:: Physical Exam: General: Alert and oriented x3, no acute distress, pleasant and cooperative Lungs: Respirations even and unlabored, symmetrical chest expansion Eyes: PERRL Musculoskeletal: Flexion and extension of lumbar [spine] somewhat guarded secondary to pain, [antalgic gait noted] Neurological: Speech clear, no gross sensory deficit Has patient had previous pain injection?: No Conservative treatment options previously tried: Home exercise plan Length of treatment: Longer than 12 weeks Meds Home Medications and Allergies Home Medications ?Medication ?Instructions ?Recorded ?Confirmed ?Type pantoprazole 40 mg tablet,delayed 40 mg PO DAILY GERD 10/22/20 02/26/24 History release hydroxyzine HCl 25 mg tablet 25 mg PO DAILY PRN Anxiety #5 tabs 01/14/21 02/26/24 Rx diclofenac sodium 75 mg 75 mg PO BID Pain 04/26/21 02/26/24 History tablet,delayed release famotidine 20 mg tablet 20 mg PO HS GERD 11/04/21 02/26/24 History baclofen 5 mg tablet 5 mg PO TID . 03/25/22 02/26/24 History hydrocodone 10 mg-acetaminophen 1 tab PO QID Pain #120 tabs 01/24/24 02/26/24 Rx 325 mg tablet methocarbamol 500 mg tablet 500 mg PO HS #30 tabs 01/24/24 02/26/24 Rx New Prescriptions to Start Prescriptions: Allergies Allergy/AdvReac Type Severity Reaction Status Date / Time Penicillins (PENICILLINS) Allergy Unknown UNKNOWN Verified 03/25/22 10:07 Assessment and Plan *Assessment and plan (1) Degenerative disc disease, lumbar: Status: Acute Category: Medical Code(s): M51.36 - Other intervertebral disc degeneration, lumbar region (2) Lumbar radiculopathy: Status: Acute Category: Medical Code(s): M54.16 - Radiculopathy, lumbar region Plan I did discuss with the patient due to the extent of the joint pain and it being primarily in her big toes with burning sensations and does feel swollen that I would like to rule out possible gout. I will order a uric acid level and did discuss with her in future if it ends up not being related to gout that we can try pregabalin. We will follow-up with this in future. I will send in a 1 month supply of her [place]. Patient will return to clinic in 1 month for reevaluation of symptoms and plan of care. Risks and benefits of the medication have been explained in detail to the patient. The patient does understand the risk of dependence on the medication when given over a prolonged period. Patient has been advised of risks of oversedation with the prescribed medication. Narcan has been offered to the paitent in the event of oversedation. Patient has been advised that a family member should also be educated regarding administration of Narcan. The patient has been advised to consult with his/her primary care provider and pharmacist regarding drug-drug interaction of medications currently prescribed. Patient has been prescribed a controlled substance after being counseled on the medication, medication safety, and possible side effects. Opioid contract was r eviewed and signed by the patient, and that they have agreed to all of the terms set forth by our compliance program. Patient has been instructed to contact the clinic with any concerns before the next appointment. Dr. Salas has reviewed this note and agrees with this plan of care. This note was dictated using voice recognition software and make contain errors or omissions.
== END 2024-02-26 23:59 | disposition home or self-care (01) ==
PROVIDERS: PCP Nurse Practitioner Family; Visit Provider Nurse Anesthetist, Certified Registered
DX: M51.16 Intervertebral disc disorders with radiculopathy, lumbar region (principal)
CPT/HCPCS: 99212; G0463

== ENCOUNTER 2024-03-28 10:08 | Outpatient (POV) | payer BC, SELFPAY ==
--- NOTE | 2024-03-28 10:56 | EXP.PAIN.SOA ---
[facility] Disclaimer: The information contained in this section may have been updated after the patient was seen, as this information can be updated by other users. Medical History (Updated 11/16/23 @ 10:13 by Sho Franco APRN) No significant past medical history Family History Other No significant family history Social History Smoking Status: Never smoker alcohol intake: never current occupational status: other Travel in the last 8 weeks: None PM Subjective & Objective Subjective Subjective:: Patient is a pleasant 53-year-old female who presents today for medication refill. Today she rates her pain a 3 out of 10. Patient states that she has not had any new injury or trauma. She does state from our last visit she did end up having lab work about a week ago to evaluate for gout as well as rheumatoid arthritis and other factors that could explain the worsening pain in her joints as well as burning sensations in her big toes. She states that she is still experiencing this pain and it has remained unchanged. Patient states that she is planning on calling her primary care today to see if there are any abnormal labs out of it. Patient is prescribed compounded cream, [place] 10 mg 4 times a day and methocarbamol 500 mg at bedtime from our office. She denies any side effects. Her Ti has been reviewed and is appropriate. Review of Systems: General: No recent weight changes, no fever, no sleep disturbances Respiratory: No cough, no shortness of air, no recurring pulmonary infections Cardiovascular/peripheral vascular: No chest pain, no palpitations, no edema, no shortness of breath Gastrointestinal: No new onset incontinence, normal bowel movements reported Genitourinary: No new onset incontinence Musculoskeletal: Low back pain, generalized joint pain Psychiatric: [Normal mood/affect] Neurological: [Denies weakness in extremities], [denies balance issues] Pain at rest (0-10 scale): 3 Objective Objective:: Physical Exam: General: Alert and oriented x3, no acute distress, pleasant and cooperative Lungs: Respirations even and unlabored, symmetrical chest expansion Eyes: PERRL Musculoskeletal: Flexion and extension of lumbar [spine] somewhat guarded secondary to pain, [antalgic gait noted] Neurological: Speech clear, no gross sensory deficit Has patient had previous pain injection?: No Conservative treatment options previously tried: Prescription medications Length of treatment: Longer than 12 weeks Meds Home Medications and Allergies Home Medications ?Medication ?Instructions ?Recorded ?Confirmed ?Type pantoprazole 40 mg tablet,delayed 40 mg PO DAILY GERD 10/22/20 02/26/24 History release hydroxyzine HCl 25 mg tablet 25 mg PO DAILY PRN Anxiety #5 tabs 01/14/21 02/26/24 Rx diclofenac sodium 75 mg 75 mg PO BID Pain 04/26/21 02/26/24 History tablet,delayed release famotidine 20 mg tablet 20 mg PO HS GERD 11/04/21 02/26/24 History baclofen 5 mg tablet 5 mg PO TID . 03/25/22 02/26/24 History methocarbamol 500 mg tablet 500 mg PO HS #30 tabs 01/24/24 02/26/24 Rx hydrocodone 10 mg-acetaminophen 1 tab PO QID Pain #120 tabs 02/26/24 Rx 325 mg tablet New Prescriptions to Start Prescriptions: Allergies Allergy/AdvReac Type Severity Reaction Status Date / Time Penicillins (PENICILLINS) Allergy Unknown UNKNOWN Verified 03/25/22 10:07 Assessment and Plan *Assessment and plan (1) Sacroiliitis: Status: Acute Category: Medical Code(s): M46.1 - Sacroiliitis, not elsewhere classified (2) Chronic left hip pain: Status: Acute Category: Medical Code(s): M25.552 - Pain in left hip; G89.29 - Other chronic pain (3) Lumbar radiculopathy: Status: Acute Category: Medical Code(s): M54.16 - Radiculopathy, lumbar region (4) Degenerative disc disease, lumbar: Status: Acute Category: Medical Code(s): M51.369 - Other intervertebral disc degeneration, lumbar region without mention of lumbar back pain or lower extremity pain Plan I will refill the patient's [place] and methocarbamol and provide a 1 month supply of this medication. Patient will return to clinic in 1 month for reevaluation of symptoms and plan of care. Risks and benefits of the medication have been explained in detail to the patient. The patient does understand the risk of dependence on the medication when given over a prolonged period. Patient has been advised of risks of oversedation with the prescribed medication. Narcan has been offered to the paitent in the event of oversedation. Patient has been advised that a family member should also be educated regarding administration of Narcan. The patient has been advised to consult with his/her primary care provider and pharmacist regarding drug-drug interaction of medications currently prescribed. Patient has been prescribed a controlled substance after being counseled on the medication, medication safety, and possible side effects. Opioid contract was reviewed and signed by the patient, and that they have agreed to all of the terms set forth by our compliance program. A UDS is needed to verify patient's compliance with our office pain contract. This is ordered based off specific treatments related to chronic pain with the potential to abuse certain medications. Patient has been instructed to contact the clinic with any concerns before the next appointment. Dr. Salas has reviewed this note and agrees with this plan of care. This note was dictated using voice recognition software and make contain errors or omissions.
[2024-03-28 11:15] VITALS: BP 134/92; PULSE 92; RESP 14; O2SAT 99; BMI 31.2
== END 2024-03-28 23:59 | disposition home or self-care (01) ==
PROVIDERS: PCP Nurse Practitioner Family; Visit Provider Nurse Practitioner Family
DX: M46.1 Sacroiliitis, not elsewhere classified (principal); M25.552 Pain in left hip; G89.29 Other chronic pain; M51.16 Intervertebral disc disorders with radiculopathy, lumbar region
CPT/HCPCS: 99212; G0463

== ENCOUNTER 2024-05-02 09:16 | Outpatient (POV) | payer BC, SELFPAY ==
--- NOTE | 2024-05-02 09:39 | EXP.PAIN.SOA ---
[facility] Disclaimer: The information contained in this section may have been updated after the patient was seen, as this information can be updated by other users. Medical History (Updated 11/16/23 @ 10:13 by Sho Franco APRN) No significant past medical history Family History Other No significant family history Social History Smoking Status: Never smoker alcohol intake: never current occupational status: other Travel in the last 8 weeks: None PM Subjective & Objective Subjective Subjective:: Patient is a pleasant 53-year-old female who presents today for medication refill via telehealth appointment. Today she rates her pain a 3 out of 10. She denies any new trauma or injury. This visit is at her home and she has given audio consent for this appointment. Patient states overall she is doing well. She did end up having labs and that gout was ruled out. She states that they did discuss possible pinched nerve that could be causing the issues. Patient is currently managed with compounded cream, [place] 10 mg 4 times a day and methocarbamol 500 mg at bedtime. She denies any side effects. She states she does not need refills on her methocarbamol. Her Ti has been reviewed and is appropriate. Review of Systems: General: No recent weight changes, no fever, no sleep disturbances Respiratory: No cough, no shortness of air, no recurring pulmonary infections Cardiovascular/peripheral vascular: No chest pain, no palpitations, no edema, no shortness of breath Gastrointestinal: No new onset incontinence, normal bowel movements reported Genitourinary: No new onset incontinence Musculoskeletal: Low back pain Psychiatric: [Normal mood/affect] Neurological: [Denies weakness in extremities], [denies balance issues] Pain at rest (0-10 scale): 3 Objective Objective:: General: Alert and oriented x3, pleasant and cooperative Lungs: Patient is able to say complete sentences without dyspnea Neurological: Speech clear Has patient had previous pain injection?: No Conservative treatment options previously tried: Prescription medications Length of treatment: Longer than 12 weeks Meds Home Medications and Allergies Home Medications ?Medication ?Instructions ?Recorded ?Confirmed ?Type pantoprazole 40 mg tablet,delayed 40 mg PO DAILY GERD 10/22/20 03/28/24 History release hydroxyzine HCl 25 mg tablet 25 mg PO DAILY PRN Anxiety #5 tabs 01/14/21 03/28/24 Rx diclofenac sodium 75 mg 75 mg PO BID Pain 04/26/21 03/28/24 History tablet,delayed release famotidine 20 mg tablet 20 mg PO HS GERD 11/04/21 03/28/24 History baclofen 5 mg tablet 5 mg PO TID . 03/25/22 03/28/24 History hydrocodone 10 mg-acetaminophen 1 tab PO QID Pain #120 tabs 03/28/24 Rx 325 mg tablet methocarbamol 500 mg tablet 500 mg PO HS #30 tabs 03/28/24 Rx New Prescriptions to Start Prescriptions: Allergies Allergy/AdvReac Type Severity Reaction Status Date / Time Penicillins (PENICILLINS) Allergy Unknown UNKNOWN Verified 03/25/22 10:07 Assessment and Plan *Assessment and plan (1) Degenerative disc disease, lumbar: Status: Acute Category: Medical Code(s): M51.369 - Other intervertebral disc degeneration, lumbar region without mention of lumbar back pain or lower extremity pain (2) Lumbar radiculopathy: Status: Acute Category: Medical Code(s): M54.16 - Radiculopathy, lumbar region Plan I will refill the patient's compounded cream [place] and provide a 1 month supply of this medication. Patient will return to clinic in 1 month for reevaluation of symptoms and plan of care. This telehealth appointment lasted from [id number] Risks and benefits of the medication have been explained in detail to the patient. The patient does understand the risk of dependence on the medication when given over a prolonged period. Patient has been advised of risks of oversedation with the prescribed medication. Narcan has been offered to the paitent in the event of oversedation. Patient has been advised that a family member should also be educated regarding administration of Narcan. The patient has been advised to consult with his/her primary care provider and pharmacist regarding drug-drug interaction of medications currently prescribed. Patient has been prescribed a controlled substance after being counseled on the medication, medication safety, and possible side effects. Opioid contract was reviewed and signed by the patient, and that they have agreed to all of the terms set forth by our compliance program. A UDS is needed to verify patient's compliance with our office pain contract. This is ordered based off specific treatments related to chronic pain with the potential to abuse certain medications. Patient has been instructed to contact the clinic with any concerns before the next appointment. Dr. Salas has reviewed this note and agrees with this plan of care. This note was dictated using voice recognition software and make contain errors or omissions.
== END 2024-05-02 23:59 | disposition home or self-care (01) ==
PROVIDERS: Visit Provider Nurse Practitioner Family
DX: M51.16 Intervertebral disc disorders with radiculopathy, lumbar region (principal)
CPT/HCPCS: 99212; G0463

== ENCOUNTER 2024-05-30 09:23 | Outpatient (POV) | payer BC, SELFPAY ==
--- NOTE | 2024-05-30 09:58 | A.OFFVIS_ITS ---
[facility] Disclaimer: The information contained in this section may have been updated after the patient was seen, as this information can be updated by other users. Medical History (Updated 11/16/23 @ 10:13 by Sho Franco APRN) No significant past medical history Family History Other No significant family history Social History Smoking Status: Never smoker alcohol intake: never current occupational status: other Travel in the last 8 weeks: None PM Subjective & Objective Subjective Subjective:: Patient is a pleasant 54-year-old female who presents today for worsening pain. She rates her pain a 5 out of 10. She states it all across to her back and into her bilateral hips and upper thighs with pressure and tingling. Patient denies any new trauma or injury. Patient does state that she is interested in injection therapy because the pain is interfering with her ability perform activities of daily living such as cooking and cleaning. Patient has had SI injections in the past and does feel like this is that same pain. Patient does also make mention that her right elbow is bothering her however it is not as bad as the low back symptoms. She is prescribed compounded cream, [place] 10 mg 4 times a day and methocarbamol 500 mg at bedtime. She denies any side effects. Her Ti has been reviewed and is appropriate. Review of Systems: General: No recent weight changes, no fever, no sleep disturbances Respiratory: No cough, no shortness of air, no recurring pulmonary infections Cardiovascular/peripheral vascular: No chest pain, no palpitations, no edema, no shortness of breath Gastrointestinal: No new onset incontinence, normal bowel movements reported Genitourinary: No new onset incontinence Musculoskeletal: Low back pain, bilateral hip pain Psychiatric: [Normal mood/affect] Neurological: [Denies weakness in extremities], [denies balance issues] Pain at rest (0-10 scale): 5 Objective Objective:: Physical Exam: General: Alert and oriented x3, no acute distress, pleasant and cooperative Lungs: Respirations even and unlabored, symmetrical chest expansion Eyes: PERRL Musculoskeletal: Flexion and extension of lumbar [spine] somewhat guarded secondary to pain, [antalgic gait noted] point tenderness along bilateral SIs with positive bilateral Jose's, Jorge's, Gaenslen's, compression and distra ction exam Neurological: Speech clear, no gross sensory deficit Has patient had previous pain injection?: No Conservative treatment options previously tried: Home exercise plan Length of treatment: Longer than 12 weeks Meds Home Medications and Allergies Home Medications ?Medication ?Instructions ?Recorded ?Confirmed ?Type pantoprazole 40 mg tablet,delayed 40 mg PO DAILY GERD 10/22/20 03/28/24 History release hydroxyzine HCl 25 mg tablet 25 mg PO DAILY PRN Anxiety #5 tabs 01/14/21 03/28/24 Rx diclofenac sodium 75 mg 75 mg PO BID Pain 04/26/21 03/28/24 History tablet,delayed release famotidine 20 mg tablet 20 mg PO HS GERD 11/04/21 03/28/24 History baclofen 5 mg tablet 5 mg PO TID . 03/25/22 03/28/24 History methocarbamol 500 mg tablet 500 mg PO HS #30 tabs 03/28/24 Rx hydrocodone 10 mg-acetaminophen 1 tab PO QID Pain #120 tabs 05/02/24 Rx 325 mg tablet New Prescriptions to Start Prescriptions: Allergies Allergy/AdvReac Type Severity Reaction Status Date / Time Penicillins (PENICILLINS) Allergy Unknown UNKNOWN Verified 03/25/22 10:07 Assessment and Plan *Assessment and plan (1) Sacroiliitis: Status: Acute Category: Medical Code(s): M46.1 - Sacroiliitis, not elsewhere classified (2) Degenerative disc disease, lumbar: Status: Acute Category: Medical Code(s): M51.369 - Other intervertebral disc degeneration, lumbar region without mention of lumbar back pain or lower extremity pain Plan Patient is experiencing worsening pain along the low back and bilateral hips. They did have limited range of motion of the lumbar spine along with point tenderness along bilateral SI joints and a positive bilateral Jose's, Jorge's, Gaenslen's, compression and distraction exam. I did discuss with the patient that I do believe they would benefit from bilateral SI injections. Risk and benefits were discussed with the patient and they would like to proceed forward with this option. Patient has tried and failed conservative therapy including continued at home stretching exercise for longer than 12 weeks. Patient had her last SI injection back in February that did provide 99% improvement and has lasted up until about the last week. Patient has had a chronic sacroiliitis for longer than 6 months. I will also refill the patient's [place] and provide a 1 month supply of this medication. Patient will be scheduled for bilateral SI injections under fluoroscopy. Risks and benefits of the medication have been explained in detail to the patient. The patient does understand the risk of dependence on the medication when given over a prolonged period. Patient has been advised of risks of oversedation with the prescribed medication. Narcan has been offered to the paitent in the event of oversedation. Patient has been advised that a family member should also be educated regarding administration of Narcan. The patient has been advised to consult with his/her primary care provider and pharmacist regarding drug-drug interaction of medications currently prescribed. Patient has been prescribed a controlled substance after being counseled on the medication, medication safety, and possible side effects. Opioid contract was reviewed and signed by the patient, and that they have agreed to all of the terms set forth by our compliance program. A UDS is needed to verify patient's compliance with our office pain contract. This is ordered based off specific treatments related to chronic pain with the potential to abuse certain medications. Patient has been instructed to contact the clinic with any concerns before the next appointment. Dr. Salas has reviewed this note and agrees with this plan of care. This note was dictated using voice recognition software and make contain errors or omissions.
[2024-05-30 12:58] VITALS: BP 153/90; PULSE 88; RESP 14; O2SAT 98; BMI 31.2
== END 2024-05-30 23:59 | disposition home or self-care (01) ==
PROVIDERS: PCP Nurse Practitioner Family; Visit Provider Nurse Practitioner Family
DX: M46.1 Sacroiliitis, not elsewhere classified (principal); M51.369 Other intervertebral disc degeneration, lumbar region without mention of lumbar back pain or lower extremity pain; Z73.89 Other problems related to life management difficulty
CPT/HCPCS: 99212; G0463

== ENCOUNTER 2024-06-24 14:10 | Outpatient (POV) | payer BC, SELFPAY ==
[2024-06-24 14:40] VITALS: BP 157/88; PULSE 91; RESP 14; O2SAT 100; BMI 31.2
--- NOTE | 2024-06-24 15:31 | EXP.PAIN.SOA ---
[facility] Disclaimer: The information contained in this section may have been updated after the patient was seen, as this information can be updated by other users. Medical History No significant past medical history Family History Other No significant family history Social History Smoking Status: Never smoker alcohol intake: never current occupational status: other Travel in the last 8 weeks: None PM Subjective & Objective Subjective Subjective:: Patient is a pleasant 54-year-old female who presents today for medication refill and follow-up. Today she rates her pain a 5 out of 10. Patient denies any new trauma or injury. Patient is still waiting to hear on her bilateral SI injections that we have been trying to schedule. Patient is currently managed with [place] 10 mg 4 times a day, methocarbamol 500 mg at bedtime and compounded cream. She denies any side effects. Her Ti has been reviewed and is appropriate. Review of Systems: General: No recent weight changes, no fever, no sleep disturbances Respiratory: No cough, no shortness of air, no recurring pulmonary infections Cardiovascular/peripheral vascular: No chest pain, no palpitations, no edema, no shortness of breath Gastrointestinal: No new onset incontinence, normal bowel movements reported Genitourinary: No new onset incontinence Musculoskeletal: Low back pain Psychiatric: [Normal mood/affect] Neurological: [Denies weakness in extremities], [denies balance issues] Pain at rest (0-10 scale): 5 Objective Objective:: Physical Exam: General: Alert and oriented x3, no acute distress, pleasant and cooperative Lungs: Respirations even and unlabored, symmetrical chest expansion Eyes: PERRL Musculoskeletal: Flexion and extension of lumbar [spine] somewhat guarded secondary to pain, [antalgic gait noted] Neurological: Speech clear, no gross sensory deficit Has patient had previous pain injection?: No Conservative treatment options previously tried: Home exercise plan Length of treatment: Longer than 12 weeks Meds Home Medications and Allergies Home Medications ?Medication ?Instructions ?Recorded ?Confirmed ?Type pantoprazole 40 mg tablet,delayed 40 mg PO DAILY GERD 10/22/20 06/24/24 History release hydroxyzine HCl 25 mg tablet 25 mg PO DAILY PRN Anxiety #5 tabs 01/14/21 06/24/24 Rx diclofenac sodium 75 mg 75 mg PO BID Pain 04/26/21 06/24/24 History tablet,delayed release famotidine 20 mg tablet 20 mg PO HS GERD 11/04/21 06/24/24 History baclofen 5 mg tablet 5 mg PO TID . 03/25/22 06/24/24 History methocarbamol 500 mg tablet 500 mg PO HS #30 tabs 03/28/24 06/24/24 Rx hydrocodone 10 mg-acetaminophen 1 tab PO QID Pain #120 tabs 05/30/24 06/24/24 Rx 325 mg tablet New Prescriptions to Start Prescriptions: Allergies Allergy/AdvReac Type Severity Reaction Status Date / Time Penicillins (PENICILLINS) Allergy Unknown UNKNOWN Verified 03/25/22 10:07 Assessment and Plan *Assessment and plan (1) Sacroiliitis: Status: Acute Category: Medical Code(s): M46.1 - Sacroiliitis, not elsewhere classified (2) Chronic left hip pain: Status: Acute Category: Medical Code(s): M25.552 - Pain in left hip; G89.29 - Other chronic pain (3) Degenerative disc disease, lumbar: Status: Acute Category: Medical Code(s): M51.369 - Other intervertebral disc degeneration, lumbar region without mention of lumbar back pain or lower extremity pain Plan I will refill her [place] methocarbamol and provide a 1 month supply of these medications. I did discuss with the patient that I will find out an update regarding her SI injections. Patient agrees with this plan of care. Patient will return to clinic in 1 month. 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 We will contact her and let her know that this appointment was last week. We will also see if she wants to try to reschedule this. Risks and benefits of the medication have been explained in detail to the patient. The patient does understand the risk of dependence on the medication when given over a prolonged period. Patient has been advised of risks of oversedation with the prescribed medication. Narcan has been offered to the paitent in the event of oversedation. Patient has been advised that a family member should also be educated regarding administration of Narcan. The patient has been advised to consult with his/her primary care provider and pharmacist regarding drug-drug interaction of medications currently prescribed. Patient has been prescribed a controlled substance after being counseled on the medication, medication safety, and possible side effects. Opioid contract was reviewed and signed by the patient, and that they have agreed to all of the terms set forth by our compliance program. A UDS is needed to verify patient's compliance with our office pain contract. This is ordered based off specific treatments related to chronic pain with the potential to abuse certain medications. Patient has been instructed to contact the clinic with any concerns before the next appointment. Dr. Salas has reviewed this note and agrees with this plan of care. This note was dictated using voice recognition software and make contain errors or omissions.
== END 2024-06-24 23:59 | disposition home or self-care (01) ==
PROVIDERS: PCP Nurse Practitioner Family; Visit Provider Nurse Practitioner Family
DX: M46.1 Sacroiliitis, not elsewhere classified (principal); M25.552 Pain in left hip; G89.29 Other chronic pain; M51.369 Other intervertebral disc degeneration, lumbar region without mention of lumbar back pain or lower extremity pain
CPT/HCPCS: 99212; G0463

== ENCOUNTER 2024-08-05 08:34 | Outpatient (POV) | payer BC, SELFPAY ==
--- NOTE | 2024-08-05 08:46 | A.OFFVIS_ITS ---
[facility] Disclaimer: The information contained in this section may have been updated after the patient was seen, as this information can be updated by other users. Medical History No significant past medical history Family History Other No significant family history Social History Smoking Status: Never smoker alcohol intake: never current occupational status: other Travel in the last 8 weeks?: None Have you lived/traveled outside [place] in past 30 days?: No Contact w/someone who lives/traveled outside [place] past 30 days?: No Exposure to someone with infectious disease in past 14 days?: No Do you have a fever (greater than 100.4 F or 38 C)?: No Have you tested positive for COVID-19?: No Exposed to someone with COVID-19 in past 14 days?: No Do you have a sore throat?: No Do you have a cough?: No Do you have any weakness?: No Do you have any diarrhea?: No Are you experiencing any unusual bleeding?: No Do you have any muscle aches/pain?: No Do you have any abdominal pain?: No Are you experiencing loss of taste or smell?: No PM Subjective & Objective Subjective Subjective:: Patient is a pleasant 54-year-old female who presents today for medication refill. Today she does rated her pain at 3 out of 10. She states that everything is maintaining and she is doing well on her current medications. Patient is prescribed [place] 10 mg 4 times a day, methocarbamol 500 mg at bedtime and compound cream. She denies any side effects or changes to her pharmacy. Her Ti has been reviewed and is appropriate. Review of Systems: General: No recent weight changes, no fever, no sleep disturbances Respiratory: No cough, no shortness of air, no recurring pulmonary infections Cardiovascular/peripheral vascular: No chest pain, no palpitations, no edema, no shortness of breath Gastrointestinal: No new onset incontinence, normal bowel movements reported Genitourinary: No new onset incontinence Musculoskeletal: Chronic back pain Psychiatric: [Normal mood/affect] Neurological: [Denies weakness in extremities], [denies balance issues] Pain at rest (0-10 scale): 3 Objective Objective:: Physical Exam: General: Alert and oriented x3, no acute distress, pleasant and cooperative Lungs: Respirations even and unlabored, symmetrical chest expansion Eyes: PERRL Musculoskeletal: Flexion and extension of lumbar [spine] somewhat guarded secondary to pain Neurological: Speech clear, no gross sensory deficit Has patient had previous pain injection?: No Conservative treatment options previously tried: Home exercise plan Length of treatment: Longer than 12 weeks Meds Home Medications and Allergies Home Medications ?Medication ?Instructions ?Recorded ?Confirmed ?Type pantoprazole 40 mg tablet,delayed 40 mg PO DAILY GERD 10/22/20 06/24/24 History release hydroxyzine HCl 25 mg tablet 25 mg PO DAILY PRN Anxiety #5 tabs 01/14/21 06/24/24 Rx diclofenac sodium 75 mg 75 mg PO BID Pain 04/26/21 06/24/24 History tablet,delayed release famotidine 20 mg tablet 20 mg PO HS GERD 11/04/21 06/24/24 History baclofen 5 mg tablet 5 mg PO TID . 03/25/22 06/24/24 History hydrocodone 10 mg-acetaminophen 1 tab PO QID Pain #120 tabs 06/24/24 Rx 325 mg tablet methocarbamol 500 mg tablet 500 mg PO HS #30 tabs 06/24/24 Rx hydrocodone 10 mg-acetaminophen 1 tab PO QID #28 tabs 07/24/24 Rx 325 mg tablet New Prescriptions to Start Prescriptions: Allergies Allergy/AdvReac Type Severity Reaction Status Date / Time Penicillins (PENICILLINS) Allergy Unknown UNKNOWN Verified 03/25/22 10:07 Assessment and Plan *Assessment and plan (1) Lumbar radiculopathy: Status: Acute Category: Medical Code(s): M54.16 - Radiculopathy, lumbar region (2) Degenerative disc disease, lumbar: Status: Acute Category: Medical Code(s): M51.369 - Other intervertebral disc degeneration, lumbar region without mention of lumbar back pain or lower extremity pain Plan I will refill the patient's [place] and methocarbamol and provide a 1 month supply of these medications. Patient will return to clinic in 1 month. Risks and benefits of the medication have been explained in detail to the patient. The patient does understand the risk of dependence on the medication when given over a prolonged period. Patient has been advised of risks of oversedation with the prescribed medication. Narcan has been offered to the paitent in the event of oversedation. Patient has been advised that a family member should also be edu cated regarding administration of Narcan. The patient has been advised to consult with his/her primary care provider and pharmacist regarding drug-drug interaction of medications currently prescribed. Patient has been prescribed a controlled substance after being counseled on the medication, medication safety, and possible side effects. Opioid contract was reviewed and signed by the patient, and that they have agreed to all of the terms set forth by our compliance program. A UDS is needed to verify patient's compliance with our office pain contract. This is ordered based off specific treatments related to chronic pain with the potential to abuse certain medications. Patient has been instructed to contact the clinic with any concerns before the next appointment. Dr. Salas has reviewed this note and agrees with this plan of care. This note was dictated using voice recognition software and make contain errors or omissions.
[2024-08-05 09:38] VITALS: BP 138/75; PULSE 88; RESP 14; O2SAT 98; BMI 29.9
== END 2024-08-05 23:59 | disposition home or self-care (01) ==
PROVIDERS: PCP Nurse Practitioner Family; Visit Provider Nurse Practitioner Family
DX: M51.16 Intervertebral disc disorders with radiculopathy, lumbar region (principal)
CPT/HCPCS: 99212; G0463

== ENCOUNTER 2024-09-05 08:32 | Outpatient (POV) | payer BC, SELFPAY ==
--- OUTSIDE RECORDS SUMMARY | 2024-09-05 08:35 | XMS_ITS | Clinical Summary ---
Author Organization [facility] Address [address] [place] [address] Care Team Providers Care Window Shade Estimator Name Role Phone AmadorBharati Obey DOMINGO Primary Care Provider [phone] Immunizations Immunization Administration Dates Next Due Influenza, Unspecified 12/08/2008 Family History Medical History Relation Name Comments Arthritis Father Cardiac disorder Father Coronary artery disease Father Fibromyalgia Father Hyperlipidemia Father COPD Mother Fibromyalgia Mother Hyperlipidemia Mother Hypertension Mother Relation Name Status Comments Father Mother Social History Tobacco Use Types Packs/Day Years Used Date Smoking Tobacco: Never Alcohol Use Standard Drinks/Week Comments No 0 (1 standard drink = 0.6 oz pure alcohol) Alcoholic Drinks/day: Never Drank Alcohol Comments Unknown Sex and Gender Information Value Date Recorded Sex Assigned at Not on file Legal Sex Female 8:39 PM EDT Gender Identity Not on file Sexual Orientation Not on file Last Filed Vital Signs Vital Sign Reading Time Taken Comments Blood Pressure - - Pulse - - Temperature - - Respiratory Rate - - Oxygen Saturation - - Inhaled Oxygen Concentration - - Weight 89.4 kg (197 lb 0.1 oz) 12/17/2019 8:56 A M EDT Height 165.1 cm (5' 5 ) 12/17/2019 8:56 AM EDT Body Mass Index 32.78 12/17/2019 8:56 AM EDT Plan of Treatment Health Maintenance Due Date Last Done Comments [facility]-Depression Screening 1970 [facility]-/Child/Adol SDOH Screenings 1970 [facility]- SDOH Screenings 1988 [facility]-Adult SDOH Screenings 1988 [facility]-DTaP,Tdap,and Td Vaccine s (1 - Tdap) 1989 [facility]-Hepatitis B Vaccines (1 of 3 - 19+ 3-dose series) 1989 [facility]-Pap Smear 1991 [facility]-Cervical Cancer Screening 2000 [facility]-HPV/Cotest 2000 CT Colonography 2015 Colonoscopy 2015 FIT-DNA 2015 FIT 2015 FOBT 2015 Sigmoidoscopy 2015 [facility]-Colorectal Cancer Screening 2015 [facility]-Pneumococcal Vaccine: 50 + Years (1 of 1 - PCV) 2020 [facility]-Zoster Vaccines (1 of 2) 2020 [id number] Vaccine ( - 2023- season) 2023 12/29/2020, 12/08/2020 [facility]-Influenza Vaccine (Seas[place] n Ended) 2024 12/08/2008 HPV Vaccines Aged Out No longer eligi ble based on patient's age to complete this topic [facility]-HIB Vaccines Aged Out No longer e ligible based on patient's age to complete this topic [facility]-Hepatitis A Vaccines Aged Out No longer eligible based on patient's age to complete this topic [facility]-IPV Vaccines Aged Out No longer e ligible based on patient's age to complete this topic [facility]-Rotavirus Vaccines Aged Out No lo nger eligible based on patient's age to complete this topic Insurance [employer] Care Teams Window Shade Estimator Relationship Specialty Start Date End Date Bharati English APRN [phone] [phone] [facility] - General 08/07/20
--- OUTSIDE RECORDS SUMMARY | 2024-09-05 08:35 | XMS_ITS | Clinical Summary ---
Author Organization [facility] Address [address] [place] [id number] Care Team Providers Care Snack Bar Attendant Name Role Phone Unavailable Primary Care Provider Unavailabl e Social History Tobacco Use Types Packs/Day Years Used Date Smoking Tobacco: Never Assessed Comments Unknown Sex and Gender Information Value Date Recorded Sex Assigned at Female 09/21/2021 7:43 PM CDT Legal Sex Female 7:43 PM CDT Gender Identity Female 09/21/2021 7:43 PM CDT Sexual Orientation Not on file Plan of Treatment Not on file
--- OUTSIDE RECORDS SUMMARY | 2024-09-05 08:35 | XMS_ITS | Referral Summary ---
Author Organization [facility] Address [address] [place] [id number] Care Team Providers Care Chain Person Name Role Phone Unavailable Primary Care Provider [...]
--- NOTE | 2024-09-05 08:37 | EXP.PAIN.SOA ---
[facility] Disclaimer: The information contained in this section may have been updated after the patient was seen, as this information can be updated by other users. Medical History (Updated 09/05/24 @ 08:46 by Sho Franco APRN) No significant past medical history Family History Other No significant family history Social History Smoking Status: Never smoker alcohol intake: never current occupational status: other Travel in the last 8 weeks?: None Have you lived/traveled outside US in past 30 days?: No Contact w/someone who lives/traveled outside US past 30 days?: No Exposure to someone with infectious disease in past 14 days?: No Do you have a fever (greater than 100.4 F or 38 C)?: No Have you tested positive for COVID-19?: No Exposed to someone with COVID-19 in past 14 days?: No Do you have a sore throat?: No Do you have a cough?: No Do you have any weakness?: No Do you have any diarrhea?: No Are you experiencing any unusual bleeding?: No Do you have any muscle aches/pain?: No Do you have any abdominal pain?: No Are you experiencing loss of taste or smell?: No PM Subjective & Objective Subjective Subjective:: Patient is a pleasant 54-year-old female who presents today for medication refill. Today she rates her pain a 6 out of 10. She states that she continues to have the worsening pain in her neck with radiating symptoms that the numbness and tingling that predominantly goes down the right arm but will go down the left on occasions. She states that is affecting more her middle finger out with numbness. She states the pain is constant and is affecting her sleeping and ability to perform activities of daily living such as cooking and cleaning. 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 Patient states she even has trouble turning on her washing machine where it is and knob to turn. Patient does state it is bad enough that she would like to see about doing something about it. Patient has tried conservative treatment with no additional changes. She has managed from our office with [place] 10 mg 4 times a day, methocarbamol 500 mg at bedtime and compounded cream. She denies any issues with these medications. Her Ti has been reviewed and is appropriate. Review of Systems: General: No recent weight changes, no fever, no sleep disturbances Respiratory: No cough, no shortness of air, no recurring pulmonary infections Cardiovascular/peripheral vascular: No chest pain, no palpitations, no edema, no shortness of breath Gastrointestinal: No new onset incontinence, normal bowel movements reported Genitourinary: No new onset incontinence Musculoskeletal: Neck pain, right upper arm numbness tingling Psychiatric: [Normal mood/affect] Neurological: [Denies weakness in extremities], [denies balance issues] Pain at rest (0-10 scale): 6 Objective Objective:: Physical Exam: General: Alert and oriented x3, no acute distress, pleasant and cooperative Lungs: Respirations even and unlabored, symmetrical chest expansion Eyes: PERRL Musculoskeletal: Flexion and extension of cervical [spine] somewhat guarded secondary to pain, [antalgic gait noted] positive Spurling's test Neurological: Speech clear, no gross sensory deficit Has patient had previous pain injection?: No Conservative treatment options previously tried: Home exercise plan Length of treatment: Longer than 12 weeks and Prescription medications Length of treatment: Longer than 12 weeks Meds Home Medications and Allergies Home Medications ?Medication ?Instructions ?Recorded ?Confirmed ?Type pantoprazole 40 mg tablet,delayed 40 mg PO DAILY GERD 10/22/20 08/05/24 History release hydroxyzine HCl 25 mg tablet 25 mg PO DAILY PRN Anxiety #5 tabs 01/14/21 08/05/24 Rx diclofenac sodium 75 mg 75 mg PO BID Pain 04/26/21 08/05/24 History tablet,delayed release famotidine 20 mg tablet 20 mg PO HS GERD 11/04/21 08/05/24 History baclofen 5 mg tablet 5 mg PO TID . 03/25/22 08/05/24 History hydrocodone 10 mg-acetaminophen 1 tab PO QID #120 tabs 08/05/24 Rx 325 mg tablet methocarbamol 500 mg tablet 500 mg PO HS #30 tabs 08/05/24 Rx hydrocodone 10 mg-acetaminophen 1 tab PO QID Pain #120 tabs 09/05/24 Rx 325 mg tablet New Prescriptions to Start Prescriptions: hydrocodone-acetaminophen Sho Franco Allergies Allergy/AdvReac Type Severity Reaction Status Date / Time Penicillins (PENICILLINS) Allergy Unknown UNKNOWN Verified 03/25/22 10:07 Assessment and Plan *Assessment and plan (1) Degenerative disc disease, cervical: Status: Acute Category: Medical Code(s): M50.30 - Other cervical disc degeneration, unspecified cervical region (2) Cervical radiculopathy at C7: Status: Acute Category: Medical Code(s): M54.12 - Radiculopathy, cervical region Plan I will refill the patient's [place] and methocarbamol provided 1 month supply of this medication. Patient is experiencing worsening pain in their neck with radiating tingling and burning sensations into their bilateral upper extremities. Patient did have limited range of motion of her cervical spine with a positive Spurling's test. I did discuss with the patient that I do believe they would benefit from a cervical epidural steroid injection. Risk and benefits were discussed with patient and they would like to proceed forward with this plan of care. Patient has tried and failed conservative therapy including oral medications, heat and ice, topicals, at home stretching exercise for longer than 12 weeks that was physician guided. Patient has not had any cervical epidurals from our office. Patient's complaints are affecting her middle finger and ring finger. Patient will be scheduled for a CANDI C7-T1 under fluoroscopy. Patient denies any blood thinners. Patient did make mention today that she has had a shunt for about 28 years in and around the upper thoracic area. Patient was counseled that we will be mindful of this and make adjustments accordingly while we are doing the last imaging for this injection. Patient has been instructed to contact the clinic with any concerns before the next appointment. Dr. Salas has reviewed this note and agrees with this plan of care. This note was dictated using voice recognition software and make contain errors or omissions. All injections are used with Lidocaine, Bupivacaine and dexamethasone unless otherwise stated as a diagnostic in which it has no steroid. Occasionally urine drug screen is needed to verify patient's compliance with our office pain contract. This is ordered based off specific treatments related to chronic pain with the potential to abuse certain medications. Patient will return to clinic in 1 month for reevaluation of symptoms and plan of care. Risks and benefits of the medication have been explained in detail to the patient. The patient does understand the risk of dependence on the medication when given over a prolonged period. Patient has been advised of risks of oversedation with the prescribed medication. Narcan has been offered to the paitent in the event of oversedation. Patient has been advised that a family member should also be educated regarding administration of Narcan. The patient has been advised to consult with his/her primary care provider and pharmacist regarding drug-drug interaction of medications currently prescribed. Patient has been prescribed a controlled substance after being counseled on the medication, medication safety, and possible side effects. Opioid contract was reviewed and signed by the patient, and that they have agreed to all of the terms set forth by our compliance program. A UDS is needed to verify patient's compliance with our office pain contract. This is ordered based off specific treatments related to chronic pain with the potential to abuse certain medications. Patient has been instructed to contact the clinic with any concerns before the next appointment. Dr. Salas has reviewed this note and agrees with this plan of care. This note was dictated using voice recognition software and make contain errors or omissions.
[2024-09-05 08:49] VITALS: BP 140/72; PULSE 84; RESP 14; O2SAT 99; BMI 31.6
== END 2024-09-05 23:59 | disposition home or self-care (01) ==
PROVIDERS: PCP Nurse Practitioner Family; Visit Provider Nurse Practitioner Family
DX: M50.123 Cervical disc disorder at C6-C7 level with radiculopathy (principal); Z79.899 Other long term (current) drug therapy; Z79.891 Long term (current) use of opiate analgesic
CPT/HCPCS: 99212; G0463

== ENCOUNTER 2024-10-02 09:02 | Outpatient (POV) | payer BC, SELFPAY ==
--- NOTE | 2024-10-02 09:06 | EXP.PAIN.SOA ---
[facility] Disclaimer: The information contained in this section may have been updated after the patient was seen, as this information can be updated by other users. Medical History No significant past medical history Family History Other No significant family history Social History Smoking Status: Never smoker alcohol intake: never current occupational status: other Travel in the last 8 weeks?: None PM Subjective & Objective Subjective Subjective:: Patient is a pleasant 54-year-old female who presents to clinic for medication refill and follow-up. Today she rates her pain a 3 out of 10. She denies any new trauma or injury. She is still dealing with the chronic neck pain and primarily right shoulder pain. We are still progressing forward to get advanced imaging and see about a cervical epidural in future. Patient does state that she still would like to proceed forward with this option as it is interfering with her ability perform activities of daily living. Patient is currently managed with [place] 10 mg 4 times a day, methocarbamol 500 mg at bedtime and compounded cream. She denies any side effects. Her Ti has been reviewed and is appropriate. Review of Systems: General: No recent weight changes, no fever, no sleep disturbances Respiratory: No cough, no shortness of air, no recurring pulmonary infections Cardiovascular/peripheral vascular: No chest pain, no palpitations, no edema, no shortness of breath Gastrointestinal: No new onset incontinence, normal bowel movements reported Genitourinary: No new onset incontinence Musculoskeletal: Chronic back pain Psychiatric: [Normal mood/affect] Neurological: [Denies weakness in extremities], [denies balance issues] Pain at rest (0-10 scale): 3 Objective Objective:: Physical Exam: General: Alert and oriented x3, no acute distress, pleasant and cooperative Lungs: Respirations even and unlabored, symmetrical chest expansion Eyes: PERRL Musculoskeletal: Flexion and extension of cervical [spine] somewhat guarded secondary to pain, [antalgic gait noted] Neurological: Speech clear, no gross sensory deficit Has patient had previous pain injection?: No Conservative treatment options previously tried: Home exercise plan Length of treatment: Longer than 12 weeks Meds Home Medications and Allergies Home Medications ?Medication ?Instructions ?Recorded ?Confirmed ?Type pantoprazole 40 mg tablet,delayed 40 mg PO DAILY GERD 10/22/20 10/02/24 History release hydroxyzine HCl 25 mg tablet 25 mg PO DAILY PRN Anxiety #5 tabs 01/14/21 10/02/24 Rx diclofenac sodium 75 mg 75 mg PO BID Pain 04/26/21 10/02/24 History tablet,delayed release famotidine 20 mg tablet 20 mg PO HS GERD 11/04/21 10/02/24 History baclofen 5 mg tablet 5 mg PO TID . 03/25/22 10/02/24 History hydrocodone 10 mg-acetaminophen 1 tab PO QID #120 tabs 08/05/24 10/02/24 Rx 325 mg tablet methocarbamol 500 mg tablet 500 mg PO HS #30 tabs 08/05/24 10/02/24 Rx hydrocodone 10 mg-acetaminophen 1 tab PO QID Pain #120 tabs 09/05/24 10/02/24 Rx 325 mg tablet New Prescriptions to Start Prescriptions: Allergies Allergy/AdvReac Type Severity Reaction Status Date / Time Penicillins (PENICILLINS) Allergy Unknown UNKNOWN Verified 03/25/22 10:07 Assessment and Plan *Assessment and plan (1) Cervical radiculopathy at C7: Status: Acute Category: Medical Code(s): M54.12 - Radiculopathy, cervical region (2) Degenerative disc disease, cervical: Status: Acute Category: Medical Code(s): M50.30 - Other cervical disc degeneration, unspecified cervical region (3) Lumbar radiculopathy: Status: Acute Category: Medical Code(s): M54.16 - Radiculopathy, lumbar region (4) Degenerative disc disease, lumbar: Status: Acute Category: Medical Code(s): M51.369 - Other intervertebral disc degeneration, lumbar region without mention of lumbar back pain or lower extremity pain Plan I will refill the patient's [place] and methocarbamol and provide a 1 month supply of these medications. Patient will return to clinic in 1 month for reevaluation of symptoms and plan of care. Risks and benefits of the medication have been explained in detail to the patient. The patient does understand the risk of dependence on the medication when given over a prolonged period. Patient has been advised of risks of oversedation with the prescribed medication. [facility]. Patient has been advised that a family member should also be educated regarding administration of Narcan. The patient has been advised to consult with his/her primary care provider and pharmacist regarding drug-drug interaction of medications currently prescribed. Patient has been prescribed a controlled substance after being counseled on the medication, medication safety, and possible side effects. Opioid contract was reviewed and signed by the patient, and that they have agreed to all of the terms set forth by our compliance program. A UDS is needed to verify patient's compliance with our office pain contract. This is ordered based off specific treatments related to chronic pain with the potential to abuse certain medications. Patient has been instructed to contact the clinic with any concerns before the next appointment. Dr. Salas has reviewed this note and agrees with this plan of care. This note was dictated using voice recognition software and make contain errors or omissions.
--- OUTSIDE RECORDS SUMMARY | 2024-10-02 09:09 | XMS_ITS | Clinical Summary ---
Author Organization [facility] Address [address] [place] [address] Care Team Providers Care Parts Salesman Name Role Phone AmadorBharati Obey DOMINGO Primary Care Provider [phone] Immunizations Immunization Administration Dates Next Due Influenza, [...] Date Last Done Comments [facility]-Depression Screening 1970 [facility]-Infant/Child/Adol SDOH Screenings 1970 [facility]- SDOH Screenings 1988 [...] 2020 [facility]-Zoster Vaccines (1 of 2) 2020 [id number] Vaccine (3 - 2023- season) 2023 12/29/2020, 12/08/2020 [facility]-Influenza Vaccine (#1) 2024 12/08/2008 HPV Vaccines Aged Out No [...] patient's age to complete this topic Insurance [employer] Care Teams Parts Salesman Relationship Specialty Start Date End Date Bharati English APRN [address] [place] [address] [facility] - General 08/07/20
--- OUTSIDE RECORDS SUMMARY | 2024-10-02 09:09 | XMS_ITS | Data Portability ---
Author Organization [facility] Address [address] [place] [address] Care Team Providers Care Fabrication Technician Name Role Phone BHARATI ENGLISH [facility] Assessment No assessment recorded. Plan of Treatment Reminders Order Date Submit Date Provider Last Modified By Organization Details Last Modified Time Details Appointments None recorded. Lab rapid strep group A, throat 2024 [email or web address] [place] [address], [address] [place] [address], [id number], 5 16:29:55 rapid strep group A, throat 2024 025 [email or web address] [facility], [address] [place] [address], [address], 5 17:00:51 TSH + free T4, serum 2023 024 [facility], [address] [place] [address], [id number], 4 13:08:25 vitamin D, 25-hydroxy , total, serum 2023 024 [facility], [address] [place] [address], [address], 4 13:08:27 C reactive protein, QN, serum or plasma 2023 024 [facility], [address] [place] [address], [address], 4 13:08:30 rf (rheumatoi d factor), serum 2023 024 [facility], [address] [place] [address], [address], 4 13:08:26 AMBERLY (antinucle ar antibodies ) screen, serum 2023 024 [facility], [address] [place] [address], [address], 4 13:08:28 ESR (erythrocy te sedimentat ion rate), blood 2023 024 [facility], [address] [place] [address], [address], 4 13:08:29 Referral None recorded. Procedures None recorded. Surgeries None recorded. Imaging None recorded. Medication Orders dexamethas one sodium phosphate 4 mg/mL injection solution 2024 025 [email or web address] Not available 16:34:12 Medrol (Mychal) 4 mg tablets in a dose pack 2024 025 [facility], [address] [place], [address], 5 14:45:55 amoxicilli n 875 mg tablet 2024 025 [facility], [address] [place], [address], 5 14:46:01 Mounjaro 12.5 mg/0.5 mL subcutaneo us pen injector 2024 025 [facility], [address] [place] [address], [address], 5 16:30:29 benzonatat e 200 mg capsule 2024 025 [facility], [address] [place], [address], 16:15:20 promethazi ne-DM 6.25 mg-15 mg/5 mL oral syrup 2024 025 [facility], [address] [place], [address], 16:16:12 ceftriaxon e 1 gram solution for injection 2024 025 [email or web address] Not available 16:28:23 Zithromax Z-Mychal 250 mg tablet 2024 025 [facility], [address] [place], [address], 5 16:28:21 prednisone 5 mg/5 mL oral solution 2024 025 [facility], [address] [place], [address], 5 09:28:53 famotidine 40 mg tablet 2024 025 [facility], [address] [place], [address], 16:45:27 Mounjaro 10 mg/0.5 mL subcutaneo us pen injector 2024 025 [facility], [address] [place], [address], 5 16:15:52 Zithromax Z-Mychal 250 mg tablet 2024 025 [email or web address] [facility], [address] [place], [address], 5 16:28:19 dexamethas one sodium phosphate 4 mg/mL injection solution 2024 025 [email or web address] Not available 16:36:48 fluticason e propionate 50 mcg/actuat ion nasal spray,susp ension 2023 024 [facility], [address] [place], [address], 11:27:39 Patient TargetsNo targets recorded. Patient Instructions Encounter Date Encounter Id Patient Instructions Last Modified By Organization Details Last Modified Time 03/22/2024 [id number] Follow up as needed. The patient will report any new or worsening symptoms. The patient will return to clinic if new or worsening symptoms are noted, or if if the symptoms do not resolve. If marked worsening of the symptoms is noted the patient will go to the emergency department of their choice. [email or web address] Not available 03/22/2024 11:11:38 05/27/2024 [id number] sore throat: car e instructions [email or web address] Not available 05/27/2024 17:00:51 Plan: - Stop allergy meds. Get saline nasal spray - RTC if s/sx persist or worsen. [email or web address] Not available 05/27/2024 17:00:40 06/03/2024 [id number] Acute Sinusitis: Care Instructions [email or web address] Not available 06/03/2024 16:43:02 Plan: - RTC if s/sx persist or worsen. [email or web address] Not available 06/03/2024 17:21:15 06/11/2024 [id number] Plan: - RTC if s/sx persist or worsen. [email or web address] Not available 06/11/2024 16:42:21 08/07/2024 [id number] sore throat: car e instructions Not available 08/07/2024 16:29:55 learning about healthy weight Not available 08/07/2024 16:29:55 body mass index: care instructions Not available 08/07/2024 16:29:55 Pt advised to take medications as directed, tylenol and ibuprofen for pain and/or fever. Increase fluids. Rest. Salt water gargles. [email or web address] Not available 08/07/2024 16:57:12 Follow up as needed. The patient will report any new or worsening symptoms. The patient will return to clinic if new or worsening symptoms are noted, or if if the symptoms do not resolve. If marked worsening of the symptoms is noted the patient will go to the emergency department of their choice. Not available 08/07/2024 16:57:16 Reason for Referral None Reported. Results Created Date Observation Date Name Description Value Unit Range Abnormal Flag Note LastModifiedBy Organization Detail LastModifiedTime 03/22/20 24 03/23/2024 TSH+F REE T4 TSH 1.820 uIU/m L 0.450- 4.500 normal Not Available [facility] ([facility]) [address] [place], [address], 03/25/2024 13:08:25 03/22/20 24 03/23/2024 TSH+F REE T4 T4,free(dire ct) 1.29 NG/dL 0.82-1 .77 normal Not Available [facility] ([facility]) [address] [place], [address], 03/25/2024 13:08:25 03/22/20 24 03/23/2024 RHEUM ATOID FACTO R (RF) rheumatoid factor (rf) <10.0 IU/mL <14.0 Not Available [facility]) [address] [place], [address], 03/25/2024 13:08:26 03/22/20 24 03/23/2024 VITAM IN D, 25-HY DROXY vitamin D, 25-hydroxy 26.8 NG/mL 30.0-1 00.0 below low normal Vitam in D defic iency has been defin ed by the Insti brenda of Medic ine and an Endoc yohannes Zavala ty pract ice guide line as a level of serum 25-OH vitam in D less than 20 ng/mL (1,2) . The Endoc cecilioe Socimonster ty [facility] defin e vitam in D insuf ficie ncy as a level betwe en 21 and 29 ng/mL (2). 1. IOM (Inst itute of Medic ine). 2010. Dieta ry refer ence harsh es for calci um and D. Jesus huff [place]: [facility] . 2. Matt k MF, Binkl ey [place], Bisch off-F errar i GROVES, et al. Evalu ation , treat ment, and preve ntion of vitam in D defic iency : an Endoc rine Socie ty clini raysa pract ice guide line. JCEM. 2010; 96(7) :1911 -30. Not Available [facility] ([facility]) [address] [facility], [place], [address], 03/25/2024 13:08:27 03/22/20 24 03/25/2024 ANTIN UCLEA R AB MULTI PLEX RFX 9 AMBERLY direct Negati ve negati ve Not Available [facility] ([facility]) [address] [facility], [place], [address], 03/25/2024 13:08:28 03/22/20 24 03/23/2024 SEDIM ENTAT ION RATE- WESTE RGREN sedimentatio n rate-westerg darcy 8 mm/HR 0-40 normal Not Available [facility] ([facility]) [address] [facility], [place], [address], 03/25/2024 13:08:29 03/22/20 24 03/23/2024 C-JANUSZ CTIVE PROTE IN, QUANT C-reactive protein, quant 3 mg/L 0-10 normal Not Available [facility] ([facility]) [address] [facility], [place], [address], 03/25/2024 13:08:30 05/28/19 25 05/27/2024 rapid strep group A, throa t Strep negati ve Not Available [facility] [address], [place], [address], 05/27/2024 16:45:14 05/28/19 25 05/27/2024 rapid strep group A, throa t Culture No Not Available [facility] [place] [address], [place], [address], 05/27/2024 16:45:14 08/08/19 25 08/07/2024 rapid strep group A, throa t Strep negati ve Not Available [facility] [address], [place], [address], 08/07/2024 16:18:02 08/08/19 25 08/07/2024 rapid strep group A, throa t Culture No Not Available [facility] [address], [place], [address], 08/07/2024 16:18:02 Result Notes None recorded. 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 5969756532 1945900 Completed 200412/07/2016 Linette Garcia null, [place] - [facility] 7 11:46:53 Type 2 diabetes mellitus 31955245 Active Amanda Magana null[place] - [facility] 3 09:36:42 Fibromya lgia 148576873 Active 2013 Amanda Mag[place] - [facility] 09:36:24 Hashimot o thyroidi tis 78242120 Active Amanda Mag[place], [place] - [facility] 3 09:36:28 Pancreat itis 57180067 Completed 12/07/2016 Linette Garcia [place], [place] - [facility] 11:48:07 Palpitat ions 00546348 Active 2012 Amandarudy Magana null[place] - [facility] 09:36:34 Rheumato id juan s 19541705 Active Amanda Mag[place], [place] - [facility] 09:36:37 Exposure to SARS-CoV -2 Completed 201905/26/2020 Katy Tolentino null, [place] - [facility] 1 15:15:47 Suspecte d COVID-19 523288265 Completed 03/01/2021 Removal Reason: Problem added by user bpoczate k from the COVID-19 watch flag Cristofer Paula, [employer] [address], [place], [address], [place] - [facility] 15:15:58 Disorder of esophagu s 88079452 Active 2021 Amanda Magana null, [place] - [facility] 09:36:17 Mammogra phy abnormal 975166785 Active 2022 Jenny Hager, [employer] [address], [place], [address], [place] - [facility] 11:32:00 Acute sinusiti s 22430436 Active 2023 Chloé Bailon, [employer] [address], [place], [address], [place] - [facility] 4 11:06:51 Open wound of lower leg 430746226 Active 2023 Chloé Bailon, [employer] [address], [place], [address], [place] - [facility] 4 15:30:21 Open wound of lower leg 218749335 Active 2023 Chloé Bailon, [employer] [address], [place], [address], [place] - [facility] 4 15:30:28 Vitamin D deficien 31502963 Active 2023 Chloé Bailon [employer] [address], [place], [address], [place] - [facility] 4 08:30:57 Pain of multiple joints 80918843 Active 2023 Maria Curtis, [employer] [address], [place], [address], [place] - [facility] 4 11:11:29 Hypergly cemia due to type 2 diabetes mellitus 1566412378 58386 Active 2024 Chloé Sharifoberts, [employer] [address], [place], [address], [place] - [facility] 5 16:22:08 Sore throat 962513853 Active 2024 Chloé Sharifoberts, [employer] [address], [place], [address], [place] - [facility] 16:22:08 Obesity 733134971 Active 2024 Chloé Sharifoberts, [employer] [address], [place], [address], [place] - [facility] 5 16:22:08 Notes:Pseudotumor Cerebri- h as shunt Problem Notes None recorded. Procedures Surgical History Date Name Laterality Status Provider Name and Address Organization Details Recorded Time 024 Date of Last Colonoscopy completed Jennyeitan Hager APRN [address], [place], [address], [place] - [facility] 01/10/2024 20:34:19 023 Date of Last Mammogram completed Jenny Hager APRN [address], [place], [address], [place] - [facility] 07/19/2022 11:32:43 022 Medication Reconcilliation completed Naty Bren [place] - [facility] 07/27/2021 14:09:00 020 Systolic B/P less than 130 mm Hg completed Deana Sy [place] - [facility] 05/22/2019 16:49:15 020 Diastolic B/P less than 80 mm Hg completed Deana Sy [place] [facility] 05/22/2019 16:49:11 020 Negative Microalbumin completed Deana Sy [place] - [facility] 05/22/2019 16:49:20 020 A1C level 8.0 to 9.0 completed Deana Sy [place] - [facility] 05/22/2019 16:52:22 019 Systolic B/P less than 130 mm Hg completed Lavonne Gannon [place] - [facility] 04/23/2018 16:12:28 019 Diastolic B/P 80-89 mm Hg completed Lavonne Gannon [place] - [facility] 04/23/2018 16:12:30 016 Cholecystectomy, laparoscopic completed Lissette Renny [place] - [facility] 01/29/2016 15:08:00 015 Salpingo-oophorect kimo, Right completed Linette Garcia [place] - [facility] 12/07/2016 11:44:28 005 Hysterectomy, Total Abdominal completed Linette Garcia [place] - [facility] 12/07/2016 11:44:39 005 Hysteroscopy completed Linette Garcia [place] - [facility] 12/07/2016 11:45:27 991 delivery completed Kathleen Colunga [place] - [facility] 12/21/2016 11:25:27 989 Caesarean Section completed Kathleenkwasi Colunga [place] - [facility] 12/21/2016 11:25:17 WIRE [employer] MA[employer]ER Shunt Placement completed Lissette bowser [place] - [facility] 01/29/2016 15:09:22 Imaging Results None recorded. Procedure Notes None recorded. Medical Equipment None Reported. Allergies Allergen ID Allergen Name Allergen Category Reaction Reaction Severity Criticality Documentation Date Start Date Code Code System Note Provider Name and Address Organization Details Recorded Time 60002 Elavil medicatio n Not available Not available Not available 01/01/20162010 34988 RxNorm Amanda musa, JIGNESH - [facility] 3 09:29:53 39094 Product containin g penicilli n (product) medicatio n Not available Not available Not available 01/01/20162007 45832 8001 SNOMED Comme nt: PCN; Amanda musa, JIGNESH - [facility] 3 09:29:55 31090 Cymbalta medicatio n Not available Not available Not available 01/01/20162010 15909 4 RxNorm Amanda musa, [place] - [facility] 3 09:29:48 58385 metformin hydrochlo ride medicatio n Not available Not available Not available 01/01/20162012 96388 3 RxNorm Comme nt: OnSet Date: cause s nause a; Danielle musa, [place] - [facility] 8 15:56:59 Medications Name Sig Start Date Stop Date Status Note LastModified by Organization Details LastModified Time Prescript ion - Renewal 03/28 completed Not Available Not Available Not Available Magic Mouthwash 3 (Nys/Lido /Seth/Maa) swish and spit 15 cc's po qid prn 12/30 completed Not Available Not Available Not Available Prescript ion - Prior Authoriza tion Request active Not Available Not Available Not Available Magic Mouthwash 3 (Nys/Lido /Seth/Maa) swish and spit 15 cc's po qid prn 08/07 completed Not Available Not Available Not Available amoxicill in 500 mg capsule Take 1 capsule every 8 hours by oral route. 05/03 completed Not Available Not Available Not Available fluconazo le 100 mg tablet Take 1 tablet every day by oral route for 14 days. 06/06 completed Not Available Not Available Not Available atorvasta tin 40 mg tablet TAKE 1 TABLET BY MOUTH ONCE A DAY. 07/12 completed Not Available Not Available Not Available methocarb lovely 500 mg tablet TAKE ONE TABLET BY MOUTH AT BEDTIME active Not Available Not Available No t Available metformin 500 mg tablet Take 1 tablet every day by oral route. 02/02 completed Not Available Not Available Not Available promethaz ine-DM 6.25 mg-15 mg/5 mL oral syrup TAKE 10 MILLILIT ERS BY MOUTH EVERY 8 HOURS NEEDED FOR COUGH 08/07 completed Not Available Not Available Not Available Xanax 0.5 mg tablet take 1 tablet (0.5 mg) by oral route 3 times per day prn anxiety 03/03 completed Xanax 0.5 mg oral tablet;R ecorded Status: Recorded on: 01/07/20 14 4:48PM;D iscontin ued Status: Disconti nued on: 03/03/20 15 5:43PM;U ser: [email or web address]; Est. Completi on: 02/06/20 14;Indic ation: Anxiety - (05.3000 00) Not Available Not Available Not Available nystatin 100,000 unit/mL oral suspensio n SWISH AND SWALLOW 5ML FOUR TIMES DAILY 12/30 completed Not Available Not Available Not Available atorvasta tin 20 mg tablet Take 1 tablet every day by oral route. 05/22 completed Not Available Not Available Not Available Neurontin 300 mg capsule take 1 capsule (300 mg) by oral route 3 times per day for 30 days 03/03 completed Neuronti n 300 mg oral capsule; Recorded Status: Recorded on: 12/05/19 14 3:24PM;D iscontin ued Status: Disconti nued on: 03/03/20 15 5:43PM;U ser: [email or web address]; Est. Completi on: 06/03/19 15;Print ed: 12/05/19 14 Not Available Not Available Not Available Depo-Medr ol 40 mg/mL suspensio n for injection Take 2 mL by injectio n route. 10/05 completed Not Available Not Available Not Available clindamyc in HCl 300 mg capsule Take 1 capsule every 6 hours by oral route. 04/23 completed Not Available Not Available Not Available azithromy andrew 250 mg tablet TAKE 2 TABLETS BY MOUTH THE 1ST DAY, THEN TAKE 1 TABLET BY MOUTH EVERY DAY FOR 4 DAYS 06/11 completed Not Available Not Available Not Available ibuprofen 800 mg tablet 1 tablet tid as needed 11/11 completed Not Available Not Available Not Available ofloxacin 0.3 % eye drops 1 gtt each ear AD PRN 04/16 completed Not Available Not Available Not Available tizanidin e 4 mg tablet one po q hs prn 05/22 completed Not Available Not Available Not Available fluconazo le 150 mg tablet TAKE 1 TABLET TODAY AND REPEAT IN 3 DAYS. 08/09 completed Not Available Not Available Not Available benzonata te 200 mg capsule TAKE 1 OR 2 CAPSULES THREE TIMES DAILY NEEDED FOR COUGH 05/14 /2025 completed Not Available Not Available Not Available clarithro mycin 500 mg tablet 01/30 completed Not Available Not Available Not Available Lortab 7.5 mg-500 mg tablet take 1 tablet by oral route every 6 hours as needed for pain 12/03 completed Lortab 7.5-500 mg oral tablet;c omment: other;Re corded Status: Recorded on: 11/20/19 09 4:12PM;D iscontin ued Status: Disconti nued on: 12/04/19 09 3:38PM;U ser: [email or web address] ;Est. Completi on: 11/20/19 09;Indic ation: Pain - (16.7809 00) Not Available Not Available Not Available Claritin 10 mg tablet Take 1 tablet every day by oral route. 2023 active Not Available Not Available Not Avai lable Adipex-P 37.5 mg tablet Take 1 tablet every day by oral route. 01/29 completed Not Available Not Available Not Available famotidin e 40 mg tablet TAKE 1 TABLET BY MOUTH ONCE A DAY FOR REFLUX active Not Available Not Available No t Available prednison e 20 mg tablet 01/30 completed Not Available Not Available Not Available Synthroid 100 mcg tablet take 1 tablet (100 mcg) by oral route once daily for 30 days 08/06 completed Synthroi d 100 mcg oral tablet;R ecorded Status: Recorded on: 05/29/19 14 2:48PM;D iscontin ued Status: Disconti nued on: 08/07/19 14 2:49PM;U ser: stroopr; Est. Completi on: 06/28/19 14;Print ed: 05/29/19 14 Not Available Not Available Not Available rizatript an 10 mg tablet 08/08 completed Not Available Not Available Not Available glipizide ER 5 mg tablet, extended release 24 hr 1 PO QD 11/11 completed Not Available Not Available Not Available clobetaso l 0.05 % topical cream APPLY A THIN LAYER TO THE AFFECTED AREA(S) BY TOPICAL ROUTE 2 TIMES PER DAY x 2 weeks, then reduce to once daily until symptoms resolved . 08/08 completed Not Available Not Available Not Available Lantus U-100 Insulin 100 unit/mL subcutane ous solution Inject 20 units every day by subcutan eous route in the evening. 02/02 completed Pt states she had a reaction of swelling from this Not Available Not Available Not Available clindamyc in HCl 150 mg capsule 03/21 completed Not Available Not Available Not Available nystatin 500,000 unit tablet Take 1 tablet 3 times a day by oral route for 14 days. 01/24 completed Not Available Not Available Not Available Accu-Chek Softclix Lancets USE 4 TIMES DAILY AND NEEDED active Not Available Not Available No t Available Nexium 40 mg capsule,d elayed release take 1 capsule (40 mg) by oral route once daily for 30 days 07/31 completed Nexium 40 mg oral capsule, delayed release( /CLAIRE);R ecorded Status: Recorded on: 10/03/19 13 4:08PM;D iscontin ued Status: Disconti nued on: 08/01/19 14 3:55PM;U ser: [email or web address] b;Est. Completi on: 09/28/19 14;Print ed: 10/03/19 13 Not Available Not Available Not Available meclizine 12.5 mg tablet take 1-2 tablets by oral route 3 times a day as needed 05/20 completed meclizin e 12.5 mg oral tablet;R ecorded Status: Recorded on: 11/27/19 11 4:52PM;D iscontin ued Status: Disconti nued on: 05/20/19 12 1:27PM;U ser: [email or web address] b;Indica tion: Vertigo - (16.7804 00);Prin sabas: 11/27/19 11 Not Available Not Available Not Available metronida zole 500 mg tablet 02/01 completed Not Available Not Available Not Available fexofenad ine 180 mg tablet TAKE 1 TABLET BY MOUTH ONCE A DAY. 07/12 completed Not Available Not Available Not Available prednison e 5 mg/5 mL oral solution TAKE 10 MILLILIT ERS BY MOUTH ONCE DAILY FOR 5 DAYS active Not Available Not Available No t Available ciproflox acin 500 mg tablet take 1 tablet (500 mg) by oral route every 12 hours for 10 days 02/01 completed Not Available Not Available Not Available sulfameth oxazole 800 mg-trimet hoprim 160 mg tablet TAKE 1 TABLET BY MOUTH EVERY 12 HOURS FOR 5 DAYS. 12/14 completed Not Available Not Available Not Available hydrocodo ne 10 mg-acetam inophen 325 mg tablet TAKE 1 TABLET BY MOUTH FOUR TIMES DAILY. active Not Available Not Available No t Available Sudogest 30 mg tablet 01/30 completed Not Available Not Available Not Available ketorolac 10 mg tablet TAKE (1) TABLET BY MOUTH EVERY EIGHT HOURS NEEDED FOR PAIN. 08/30 completed Not Available Not Available Not Available dexametha sone sodium phosphate 0.1 % eye drops 1 gtt each ear AD 09/21 completed Not Available Not Available Not Available oxycodone -acetamin ophen 5 mg-325 mg tablet 02/01 completed Not Available Not Available Not Available ceftriaxo ne 1 gram solution for injection Take 1 g by injectio n route. 06/11 completed Not Available Not Available Not Available amoxicill in 875 mg tablet TAKE 1 TABLET BY MOUTH EVERY 12 HOURS active Not Available Not Available No t Available potassium chloride ER 20 mEq tablet,ex tended release(p art/cryst ) take 1 tablet (20 meq) by oral route once daily with food for 30 days 06/16 completed crys m chloride 20 mEq oral tablet,E R particle s/marizol ls;Recor ded Status: Recorded on: 12/05/19 14 3:24PM;D iscontin ued Status: Disconti nued on: 06/17/19 16 10:03AM; User: akash Baker on: 06/03/19 15;Indic ation: Hypokale sridevi - (2768 00);Prin sabas: 12/05/19 14 Not Available Not Available Not Available famotidin e 20 mg tablet TAKE 1 TABLET BY MOUTH EVERY 12 HOURS active Not Available Not Available No t Available amitripty line 25 mg tablet 02/01 completed Not Available Not Available Not Available methocarb lovely 750 mg tablet TAKE (1) TABLET BY MOUTH THREE TIMES DAILY NEEDED. 08/30 completed Not Available Not Available Not Available Lortab 10 mg-500 mg tablet take 1 tablet by oral route every 4 hours as needed for pain 07/17 completed Lortab 10-500 mg oral tablet;R ecorded Status: Recorded on: 11/10/19 11 2:51PM;D iscontin ued Status: Disconti nued on: 07/18/19 12 2:06PM;U ser: [email or web address] ;Indicat ion: Pain - (167809 00) Not Available Not Available Not Available dicyclomi ne 20 mg tablet TAKE (1) TABLET BY MOUTH FOUR TIMES DAILY. 08/30 completed Not Available Not Available Not Available Keflex 250 mg capsule take 1 capsule (250 mg) by oral route every 6 hours for 30 days 11/19 completed Keflex 250 mg oral capsule; Recorded Status: Recorded on: 10/07/19 09 12:01PM; Disconti nued Status: Disconti nued on: 11/20/19 09 2:34PM;U ser: [email or web address] ;Est. Completi on: 11/06/19 09;Print ed: 10/07/19 09 Not Available Not Available Not Available ciproflox acin 0.3 % eye drops 09/21 completed Not Available Not Available Not Available amitripty line 10 mg tablet take 1 tablet by oral route once a day (at bedtime) for 30 days 04/14 completed amitript yline 10 mg oral tablet;R ecorded Status: Recorded on: 03/04/20 10 11:42AM; Disconti nued Status: Disconti nued on: 04/14/19 11 3:59PM;U ser: [email or web address];Es t. Completi on: 06/03/19 11;Print ed: 03/04/20 10 Not Available Not Available Not Available baclofen 10 mg tablet TAKE (1/2) TABLET THREE TIMES DAILY. 07/12 completed Not Available Not Available Not Available benzonata te 100 mg capsule Take 1-2 Cap PO TID PRN - Cough 12/14 completed Not Available Not Available Not Available triamcino lone acetonide 40 mg/mL suspensio n for injection Take 2 mL by injectio n route. 2022 active Not Available Not Available Not Avai lable cephalexi n 500 mg capsule take 1 capsule (500 mg) by oral route every 6 hours for 10 days 12/14 completed Not Available Not Available Not Available pantopraz ole 40 mg tablet,de layed release TAKE 1 TABLET BY MOUTH ONCE TO TWICE DAILY NEEDED active Not Available Not Available No t Available buspirone 30 mg tablet Take 1 tablet every day by oral route at bedtime. 2023 active Not Available Not Available Not Avai lable metformin 1,000 mg tablet take 1 tablet (1,000 mg) by oral route 2 times per day with morning and evening meals for 30 days 10/02 completed metformi n 1,000 mg oral tablet;P rescribe Status: Prescrib ed on: 09/12/19 13 3:03PM;D iscontin ued Status: Disconti nued on: 10/03/19 13 4:08PM;U ser: [email or web address]; Est. Completi on: 03/10/20 13;Indic ation: Diabetes Mellitus , Type II, Uncontro lled - (250.02) ;Pharmac yVerifie d: 09/12/19 13 3:03PM Not Available Not Available Not Available ranitidin e 150 mg tablet 06/06 completed Not Available Not Available Not Available clotrimaz ole-betam ethasone 1 %-0.05 % topical cream APPLY TO THE AFFECTED AND SURROUND ING AREAS OF SKIN BY TOPICAL ROUTE 2 TIMES PER DAY IN THE MORNING AND EVENING FOR 2 WEEKS 08/08 completed Not Available Not Available Not Available lisinopri l 10 mg tablet take 1 tablet (10 mg) by oral route once daily for 30 days 12/24 completed lisinopr il 10 mg oral tablet;R ecorded Status: Recorded on: 12/05/19 14 3:27PM;D iscontin ued Status: Disconti nued on: 12/25/19 14 6:42PM;U ser: [email or web address]; Est. Completi on: 06/03/19 15;Indic ation: Hyperten trinidad - (07.4019 00) Not Available Not Available Not Available indometha andrew 50 mg capsule Take 1 capsule 3 times a day by oral route as needed. 03/28 completed Not Available Not Available Not Available Synthroid 75 mcg tablet take 1 tablet (75 mcg) by oral route once daily for 30 days 10/08 completed Synthroi d 75 mcg oral tablet;R ecorded Status: Recorded on: 10/09/19 14 9:14AM;U ser: stroopr; Est. Completi on: 04/06/19 15 Not Available Not Available Not Available Synthroid 50 mcg tablet take 1 tablet (50 mcg) by oral route once daily 03/06 completed Synthroi d 50 mcg oral tablet;R ecorded Status: Recorded on: 12/29/19 13 2:10PM;D iscontin ued Status: Disconti nued on: 03/06/20 13 7:48PM;U ser: hamptona ;Indicat ion: Hypothyr oidism - () Not Available Not Available Not Available buspirone 7.5 mg tablet Take 1 tablet twice a day by oral route. 12/14 completed Not Available Not Available Not Available omeprazol e 20 mg capsule,d elayed release Take 1 capsule every day by oral route for 30 days. 03/28 completed Not Available Not Available Not Available aspirin 81 mg chewable tablet Chew by oral route for 30 days. 06/06 completed Not Available Not Available Not Available diclofena c sodium 75 mg tablet,de layed release TAKE (1) TABLET BY MOUTH TWICE A DAY. 07/12 completed Not Available Not Available Not Available clindamyc in 2 % vaginal cream 12/14 completed Not Available Not Available Not Available hydroxyzi ne HCl 25 mg tablet TAKE 1/2 TO 1 TABLET BY MOUTH THREE TIMES DAILY NEEDED FOR ANXIETY 08/30 completed Not Available Not Available Not Available ceftriaxo ne 500 mg solution for injection Inject 500mg IM x 1 06/28 completed Not Available Not Available Not Available pravastat in 20 mg tablet TAKE 1 TABLET BY MOUTH ONCE A DAY. 08/30 completed Not Available Not Available Not Available lisinopri l 5 mg tablet take 2 tablets (10 mg) by oral route once daily for 30 days 03/03 completed lisinopr il 5 mg oral tablet;P rescribe Status: Prescrib ed on: 12/25/19 14 6:42PM;D iscontin ued Status: Disconti nued on: 03/03/20 15 5:43PM;U ser: akash Est. Completi on: 06/23/19 15;Indic ation: Hyperten trin[place] - (5 );Rosa Maurice fied: 12/25/19 14 6:42PM Not Available Not Available Not Available hydrochlo rothiazid e 25 mg tablet take 1 tablet (25 mg) by oral route once daily for 30 days 09/13 completed hydrochl orothiaz cuong 25 mg oral tablet;R ecorded Status: Recorded on: 07/15/19 11 4:19PM;D iscontin ued Status: Disconti nued on: 09/14/19 11 10:22AM; User: nisa hurstEst. Completi on: 08/14/19 11;Indic ation: Hyperten trin[place] - (5 ) Not Available Not Available Not Available diclofena c sodium 50 mg tablet,de layed release take 1 tablet (50 mg) by oral route 3 times per day for 14 days 05/06 completed diclofen ac sodium 50 mg oral tablet,d elayed release (/CLAIRE); Recorded Status: Recorded on: 12/25/19 11 2:53PM;D iscontin ued Status: Disconti nued on: 05/06/19 12 2:15PM;U ser: nisa [email or web address];Est. Completi on: 01/08/20 11;Print ed: 12/25/19 11 Not Available Not Available Not Available furosemid e 20 mg tablet 02/01 completed Not Available Not Available Not Available gabapenti n 100 mg capsule take 1 capsule by oral route daily at bedtime 12/14 completed Not Available Not Available Not Available ergocalci ferol (vitamin D2) 1,250 mcg (50,000 unit) capsule take 1 capsule by oral route once weekly for 30 days active Not Available Not Available No t Available Novolog U-100 Insulin aspart 100 unit/mL subcutane ous solution inject by subcutan eous route as per insulin sliding scale protocol 10/12 completed Novolog 100 unit/mL subcutan eous solution ;Recorde d Status: Recorded on: 10/03/19 13 4:09PM;D iscontin ued Status: Disconti nued on: 10/13/19 13 3:05PM;U ser: poczatek b Not Available Not Available Not Available dexametha sone sodium phosphate 4 mg/mL injection solution Inject 2 mL by intramus cular route. 2024 active Not Available Not Available Not Avai lable methylpre dnisolone 4 mg tablets in a dose pack TAKE 6 TABS ON DAY 1, TAKE 5 TABS ON DAY 2, TAKE 4 TABS ON DAY 3, TAKE 3 TABS ON DAY 4, TAKE 2 TABS ON DAY 5, TAKE 1 ON DAY 6. TAKE WITH FOOD. active Not Available Not Available No t Available albuterol sulfate HFA 90 mcg/actua tion aerosol inhaler INHALE 2 PUFFS EVERY 4 HOURS 07/12 completed Not Available Not Available Not Available ketorolac 60 mg/2 mL intramusc ular solution Inject 1 mL every 6 hours by intramus cular route. 05/22 completed Not Available Not Available Not Available Naprosyn 500 mg tablet take 1 tablet (500 mg) by oral route 2 times per day with food for 30 days 09/13 completed Naprosyn 500 mg oral tablet;R ecorded Status: Recorded on: 07/27/19 11 4:04PM;D iscontin ued Status: Disconti nued on: 09/14/19 11 10:22AM; User: [email or web address] b;Est. Completi on: 12/24/19 11 Not Available Not Available Not Available ondansetr on 4 mg disintegr ating tablet DISSOLVE 1 TABLET THREE TIMES A DAY NEEDED 11/11 completed Not Available Not Available Not Available cefdinir 300 mg capsule TAKE (1) CAPSULE BY MOUTH TWICE DAILY. 07/12 completed Not Available Not Available Not Available fluticaso ne propionat e 50 mcg/actua tion nasal spray,emory pension inhale 1 spray (50 mcg) in each nostril by intranas al route once daily 2023 active Not Available Not Available Not Avai lable metformin ER 500 mg tablet,ex tended release 24 hr Take 1 tablet twice a day by oral route for 90 days. 11/11 completed Not Available Not Available Not Available sertralin e 50 mg tablet take 1 tablet (50 mg) by oral route once daily for 30 days 05/17 completed sertrali ne 50 mg oral tablet;R ecorded Status: Recorded on: 04/14/19 11 4:02PM;D iscontin ued Status: Disconti nued on: 05/17/19 11 1:00PM;U ser: [email or web address]; Est. Completi on: 05/14/19 11;Print ed: 04/14/19 11 Not Available Not Available Not Available Ambien 5 mg tablet take 1 tablet by oral route once a day (at bedtime) for 14 days 05/06 completed Ambien 5 mg oral tablet;R ecorded Status: Recorded on: 12/25/19 11 2:53PM;D iscontin ued Status: Disconti nued on: 05/06/19 12 2:15PM;U ser: [email or web address] b;Est. Completi on: 01/08/20 11;Print ed: 12/25/19 11 Not Available Not Available Not Available dicyclomi ne 10 mg capsule TAKE (1) CAPSULE FOUR TIMES DAILY NEEDED. 11/11 completed Not Available Not Available Not Available Lortab 5 mg-500 mg tablet take 1 tablet by oral route 4 times a day as needed 11/09 completed Lortab 5-500 mg oral tablet;c omment: dsg change by another Dr;Recor ded Status: Recorded on: 07/27/19 11 4:00PM;D iscontin ued Status: Disconti nued on: 11/10/19 11 2:51PM;U ser: [email or web address] b;Indica tion: Pain - (167809 00) Not Available Not Available Not Available Xanax 1 mg tablet Take one tablet by oral route prior to MRI on 07/30/1009/13 completed Xanax 1 mg oral tablet;R ecorded Status: Recorded on: 07/29/19 11 2:45PM;D iscontin ued Status: Disconti nued on: 09/14/19 11 10:22AM; User: sue DuffJanicet ion: Panic Disorder - () Not Available Not Available Not Available glipizide 5 mg tablet take 1 tablet (5 mg) by oral route 2 times per day before meals for 30 days 05/06 completed glipizid e 5 mg oral tablet;R ecorded Status: Recorded on: 11/10/19 11 3:09PM;D iscontin ued Status: Disconti nued on: 05/06/19 12 2:15PM;U ser: poczatek b;Est. Completi on: 05/08/19 12;Indic ation: Type 2 Diabetes Mellitus - ();Prin sabas: 11/10/19 11 Not Available Not Available Not Available Maxzide 75 mg-50 mg tablet take 1 tablet by oral route once daily for 30 days 03/03 completed Maxzide 75-50 mg oral tablet;R ecorded Status: Recorded on: 10/26/19 14 1:32PM;D iscontin ued Status: Disconti nued on: 03/03/20 15 5:43PM;U ser: [email or web address] ;Est. Completi on: 01/24/20 14;Print ed: 10/26/19 14 Not Available Not Available Not Available buspirone 15 mg tablet TAKE 1/2 TABLET BY MOUTH TWICE DAILY. 12/14 completed Not Available Not Available Not Available neomycin- polymyxin -hydrocor t 3.5 mg-10,000 unit/mL-1 % ear drops,emory p INSTILL 4 DROPS INTO AFFECTED EAR(S) BY OTIC ROUTE 3 TIMES PER DAY 09/21 completed Not Available Not Available Not Available prednisol one sodium phosphate 5 mg base/5 mL (6.7 mg/5 mL) oral soln 06/11 completed Not Available Not Available Not Available Skelaxin 800 mg tablet take 1 tablet (800 mg) by oral route 3-4 times daily as needed 12/03 completed Skelaxin 800 mg oral tablet;c omment: not taking it;Recor ded Status: Recorded on: 09/23/19 09 12:07PM; Disconti nued Status: Disconti nued on: 12/04/19 09 3:38PM;U ser: sandra ;Printed : 09/23/19 09 Not Available Not Available Not Available guaifenes in 400 mg tablet take 2 tablets by oral route 3 times a day for 7 days 11/09 completed guaifene sin 400 mg oral tablet;R ecorded Status: Recorded on: 09/14/19 11 10:46AM; Disconti nued Status: Disconti nued on: 11/10/19 11 2:51PM;U ser: [email or web address];Es t. Completi on: 09/21/19 11;Indic ation: Cough - (44.1642 00);Prin sabas: 09/14/19 11 Not Available Not Available Not Available Novolog FlexPen U-100 Insulin aspart 100 unit/mL (3 mL) subcutane ous 8 units tid with meals 03/23 completed Not Available Not Available Not Available Premarin 0.625 mg/gram vaginal cream Insert 1 applicat ion 3 times a day by vaginal route. 03/28 completed Not Available Not Available Not Available bupropion HCl XL 150 mg 24 hr tablet, extended release Take 1 tablet every day by oral route. 05/22 completed Not Available Not Available Not Available metformin ER 1,000 mg tablet,ex tended release 24hr (osmotic) Take 1 tablet every day by oral route. 08/12 completed Not Available Not Available Not Available metformin ER 500 mg tablet,ex tended release 24hr (osmotic) take 2 tablets (1,000 mg) by oral route once daily with the evening meal for 30 days 10/23 completed metformi n 500 mg oral tablet extended release 24hr;com ment: nausea;R ecorded Status: Recorded on: 10/03/19 13 4:08PM;D iscontin ued Status: Disconti nued on: 10/24/19 13 5:28PM;U ser: poczatek b;Est. Completi on: 03/31/19 14;Indic ation: Diabetes Mellitus , Type II, Uncontro lled - (250.02) ;Printed : 10/03/19 13 Not Available Not Available Not Available hydrocodo ne 10 mg-acetam inophen 300 mg tablet Take 1 tablet 3 times a day by oral route. 10/22 completed Not Available Not Available Not Available nitrofura ntoin monohydra te/macroc rystals 100 mg capsule TAKE ONE CAPSULE BY MOUTH EVERY 12 HOURS FOR 7 DAYS. 08/30 completed Not Available Not Available Not Available Cymbalta 30 mg capsule,d elayed release take 1 capsule by oral route daily 12/03 completed Cymbalta 30 mg oral capsule, delayed release( /EC);R ecorded Status: Recorded on: 11/20/19 09 4:15PM;D iscontin ued Status: Disconti nued on: 12/04/19 09 3:38PM;U ser: [email or web address] Not Available Not Available Not Available omega-3 acid ethyl esters 1 gram capsule 12/14 completed Not Available Not Available Not Available Mahogany 10 mcg/dose( 250 mcg/mL)2. 4 mL subcutane ous pen injector inject 0.04 millilit er (10 mcg) by subcutan eous route 2 times per day before morning and evening meals for 30 days 11/19 completed Mahogany 10 mcg/dose (250 mcg/mL) 2.4 mL subcutan eous pen injector ;Recorde d Status: Recorded on: 11/10/19 11 3:09PM;D iscontin ued Status: Disconti nued on: 11/20/19 11 2:27PM;U ser: [email or web address] b;Est. Completi on: 12/10/19 11;Indic ation: Type 2 Diabetes Mellitus Treatmen t Adjunct - ();Prin sabas: 11/10/19 11 Not Available Not Available Not Available Mahogany 5 mcg/dose (250 mcg/mL)1. 2 mL subcutane ous pen injector inject 0.02 millilit er (5 mcg) by subcutan eous route 2 times per day before morning and evening meals 06/16 completed Mahogany 5 mcg/dose (250 mcg/mL) 1.2 mL subcutan eous pen injector ;comment : nausea;R ecorded Status: Recorded on: 05/29/19 11 1:12PM;D iscontin ued Status: Disconti nued on: 06/17/19 11 3:21PM;U ser: [email or web address] b;Indica tion: Type 2 Diabetes Mellitus Treatmen t Adjunct - () Not Available Not Available Not Available Lyrica 50 mg capsule take 1 capsule by oral route 2 times a day 03/04 completed Lyrica 50 mg oral capsule; Recorded Status: Recorded on: 12/04/19 09 3:38PM;D iscontin ued Status: Disconti nued on: 03/04/20 10 10:37AM; User: [email or web address] Not Available Not Available Not Available NovoFine 30 Use as directed 06/16 completed NovoFine 30G Disposab le [place]; Recorded Status: Recorded on: 10/13/19 12 11:47AM; Disconti nued Status: Disconti nued on: 06/17/19 16 10:03AM; User: sue ;EstShukri Completi on: 10/13/19 12;Print ed: 10/13/19 12 Not Available Not Available Not Available Levemir U-100 Insulin 100 unit/mL subcutane ous solution inject by subcutan eous route as per insulin sliding scale protocol 09/03 completed Levemir 100 unit/mL subcutan eous solution ;Recorde d Status: Recorded on: 09/04/19 13 3:47PM;D iscontin ued Status: Disconti nued on: 09/04/19 13 3:54PM;U ser: [email or web address] b Not Available Not Available Not Available OneTouch Ultra2 Meter kit use as directed dx E11.65 03/28 completed Not Available Not Available Not Available Januvia 100 mg tablet Take 1 tablet every day by oral route for 90 days. 10/22 completed Not Available Not Available Not Available Lantus Solostar U-100 Insulin 100 unit/mL (3 mL) subcutane ous pen Inject 16 units every day by subcutan eous route. 05/14 completed swelling Not Available Not Available Not Available Humalog Mix 75-25 KwikPen U-100 insulin 100 unit/mL subcutane ous pen inject by subcutan eous route as per insulin sliding scale protocol : 30 units BID 03/03 completed Humalog Mix 75-25 KwikPen 100 unit/mL (75-25) subcutan eous insulin pen;Steve rded Status: Recorded on: 10/01/19 14 6:35PM;D iscontin ued Status: Disconti nued on: 03/03/20 15 6:21PM;U ser: [email or web address]; Est. Completi on: 03/29/19 15;Indic ation: Diabetes Mellitus , Type II - (250.00) ;Printed : 10/01/19 14 Not Available Not Available Not Available diclofena c 1 % topical gel 03/28 completed Not Available Not Available Not Available Uloric 80 mg tablet take 1 tablet (80 mg) by oral route once daily for 14 days 05/28 completed Uloric 80 mg oral tablet;R ecorded Status: Recorded on: 05/17/19 11 1:35PM;D iscontin ued Status: Disconti nued on: 05/29/19 11 1:11PM;U ser: [email or web address] b;Est. Completi on: 06/01/19 11;Indic ation: Gout Preventi on - (2749 ) Not Available Not Available Not Available Savella Use as directed 10/13 completed Savella Starter Pack;com ment: nausea;R ecorded Status: Recorded on: 09/12/19 09 1:06PM;D iscontin ued Status: Disconti nued on: 10/14/19 09 5:27PM;U ser: [email or web address] b;Indica tion: - (-5) Not Available Not Available Not Available Solu-Medr ol (PF) 40 mg/mL solution for injection give 40 mg im now 07/12 completed Not Available Not Available Not Available Victoza 0.6 mg/0.1 mL (18 mg/3 mL) subcutane ous pen injector inject 0.3 millilit er (1.8 mg) by subcutan eous route once daily for 90 days 09/03 completed Replaced /Retired Drug 0.6 mg/0.1 mL (18 mg/3 mL) subcutan eous pen injector ;Recorde d Status: Recorded on: 10/13/19 12 11:47AM; Disconti nued Status: Disconti nued on: 09/04/19 13 3:47PM;U ser: [email or web address] ;Est. Completi on: 01/11/20 12;Print ed: 10/13/19 12 Not Available Not Available Not Available BD Ultra-Fin e Mikayla Pen Needle 32 gauge x /32 03/23 completed Not Available Not Available Not Available Probiotic and Acidophil us 300 million cell-250 mg capsule Take 1 capsule every day by oral route. 01/24 completed Not Available Not Available Not Available Linzess 290 mcg capsule TAKE (1) CAPSULE BY MOUTH ONCE A DAY DIRECTED active Not Available Not Available No t Available Vascepa 1 gram capsule Take 2 capsules twice a day by oral route for 30 days. 10/03 completed changed to lovaza Not Available Not Available Not Available Invokana 100 mg tablet TAKE 1 TABLET BY MOUTH ONCE A DAY. 04/11 completed Not Available Not Available Not Available Victoza 3-Mychal 0.6 mg/0.1 mL (18 mg/3 mL) subcutane ous pen injector Inject 0.6 mg every day by subcutan eous route. 05/22 completed Not Available Not Available Not Available Brisdelle 7.5 mg capsule Take 1 capsule every day by oral route at bedtime. 10/22 completed Not Available Not Available Not Available Farxiga 10 mg tablet active Not Available Not Available Not Available Farxiga 5 mg tablet TAKE 1 TABLET BY MOUTH ONCE A DAY. 11/09 completed Not Available Not Available Not Available Levemir FlexTouch U-100 Insulin 100 unit/mL (3 mL) subcutane ous pen Inject 40 units every day by subcutan eous route at bedtime. 06/06 completed Not Available Not Available Not Available Jardiance 25 mg tablet Take 1 tablet every day by oral route for 30 days. 05/30 completed Not Available Not Available Not Available Xigduo XR 5 mg-1,000 mg tablet,ex tended release take 2 tablets by oral route once daily in the morning with food for 30 days 06/16 completed Xigduo XR 5-1,000 mg oral tablet, IR - ER, biphasic 24hr;Pre scribe Status: Prescrib ed on: 03/03/20 15 6:10PM;D iscontin ued Status: Disconti nued on: 06/17/19 16 10:03AM; User: akash Baker on: 08/30/19 16;Indic ation: Type 2 Diabetes Mellitus - ();Rosa Maurice fied: 03/03/20 15 6:10PM Not Available Not Available Not Available Toustephany SoloStar U-300 Insulin 300 unit/mL (1.5 mL) subcutane ous pen INJECT 60 UNITS SUB-Q AT BEDTIME 05/10 completed Not Available Not Available Not Available Tresiba FlexTouch U-200 insulin 200 unit/mL (3 mL) subcutane ous pen 11/11 completed Not Available Not Available Not Available Accu-Chek Guide test strips CHECK BLOOD SUGAR 4 TIMES DAILY AND NEEDED active Not Available Not Available No t Available Ozempic 0.25 mg or 0.5 mg (2 mg/1.5 mL) subcutane ous pen injector INJECT 0.25 MG WEEKLY active Not Available Not Available No t Available OneTouch Ultra Blue Test Strip active Not Available Not Available Not Available Accu-Chek Guide Me Glucose Meter DIRECTED . active Not Available Not Available No t Available OneTouch Delica Plus Lancet 33 gauge CHECK TWICE DAILY active Not Available Not Available No t Available Mounjaro 7.5 mg/0.5 mL subcutane ous pen injector Inject 7.5 mg every week by subcutan eous route for 30 days. 12/14 completed Not Available Not Available Not Available Mounjaro 5 mg/0.5 mL subcutane ous pen injector INJECT 1 SYRINGE SUBCUTAN EOUSLY ONCE A WEEK 12/14 completed Not Available Not Available Not Available Mounjaro 15 mg/0.5 mL subcutane ous pen injector Inject 0.5 mL every week by subcutan eous route for 30 days. 08/07 completed Not Available Not Available Not Available Mounjaro 10 mg/0.5 mL subcutane ous pen injector INJECT 10 MG UNDER SKIN ONCE WEEKLY 08/07 completed Not Available Not Available Not Available Mounjaro 12.5 mg/0.5 mL subcutane ous pen injector INJECT 1 PEN SUBCUTAN EOUSLY ONCE A WEEK 2024 active Not Available Not Available Not Avai lable Zepbound 7.5 mg/0.5 mL subcutane ous pen injector Inject 7.5 mg every week by subcutan eous route for 30 days. 11/27 completed Not Available Not Available Not Available Vitals Date Recorded Body height Body mass index (BMI) Body weight Body temperature Heart rate Oxygen saturation Oxygen saturation in Arterial blood by Pulse oximetry Respiratory rate Systolic And Diastolic Provider Name and Address Organization Details Last Updated DateTime 165.1 cm 32 kg/m2 26439.1 4 g 98.3 [degF] 78 /min 98 % 98 % 17 /min 124/68 mm[Hg] Chitra Stallworth [facility] 16:42:32 Date Recorded Body height Body mass index (BMI) Body weight Body temperature Provider Name and Address Organization Details Last Updated DateTime 06/03/2024 165.1 cm 31.7 kg/m2 74190.65 g 100.5 [degF] Chitra Stallworth [facility] 06/03/2024 16:36:12 Date Recorded Body height Body mass index (BMI) Body weight Oxygen saturation Oxygen saturation in Arterial blood by Pulse oximetry Respiratory rate Heart rate Body temperature Systolic And Diastolic Provider Name and Address Organization Details Last Updated DateTime 165.1 cm 31.8 kg/m2 10881.8 4 g 97 % 97 % 18 /min 69 /min 98.5 [degF] 126/72 mm[Hg] Chitra Stallworth [facility] 16:30:48 Date Recorded Body height Body mass index (BMI) Body weight Body temperature Respiratory rate Heart rate Oxygen saturation Oxygen saturation in Arterial blood by Pulse oximetry Systolic And Diastolic Provider Name and Address Organization Details Last Updated DateTime 5 165.1 cm 31.8 kg/m2 26594.8 4 g 98.7 [degF] 18 /min 83 /min 99 % 99 % 126/80 mm[Hg] Anitra Jj MA - [facility] 16:17:19 Date Recorded Body height Body mass index (BMI) Body weight Respiratory rate Heart rate Oxygen saturation Oxygen saturation in Arterial blood by Pulse oximetry Systolic And Diastolic Provider Name and Address Organization Details Last Updated DateTime 4 165.1 cm 32.1 kg/m2 76481.3 3 g 18 /min 88 /min 98 % 98 % 116/68 mm[Hg] Sho Wagner MA - [facility] 10:50:48 Social History Question Answer Notes LastModified by Organizat ion Details LastModified Time Tobacco Smoking Status Never Smoker Deana musa MA - [facility] 02/02/2016 12:42:03 Able To Swim? Yes Information not available 02/02/2016 Do You Have An Advance Directive? No Information not available 02/02/2016 Do You Wear A Helmet When Biking? No Information not available 02/02/2016 Are You Blind Or Do You Have Difficulty Seeing? No Information not available 02/02/2016 Is Blood Transfusion Acceptable In An Emergency? Yes [email or web address] Information not available 12/21/2016 What Is Your Level Of Caffeine Consumption? Occasional [email or web address] Information not available 07/12/2022 How Much Tobacco Do You Chew? None [email or web address] Information not available 12/21/2016 In The 14 Days Before Symptom Onset, Have You Had Close Contact With A Laboratory-confir med COVID-19 While That Case Was Ill? No [email or web address] Information not available 07/12/2022 In The 14 Days Before Symptom Onset, Have You Had Close Contact With A Person Who Is Under Investigation For COVID-19 While That Person Was Ill? No [id number] Information not available 07/12/2022 Have You Been To An Area Known To Be High Risk For COVID-19? No [email or web address] Information not available 07/12/2022 Are You Deaf Or Do You Have Serious Difficulty Hearing? No Information not available 02/02/2016 What Type Of Diet Are You Following? REGULAR Information not available 02/02/2016 Which Illicit Or Recreational Drugs Have You Used? None Information not available 02/02/2016 Have You Processed Blood Or Body Fluids From An Ebola Virus Disease Patient Without Appropriate PPE? No [email or web address] Information not available 07/12/2022 Do You Reside In Or Have You Traveled To An Area Where Ebola Virus Transmission Is Active? No [email or web address] Information not available 07/12/2022 What Is The Highest Grade Or Level Of School You Have Completed Or The Highest Degree You Have Received? [id number] Information not available 11/06/2017 How Many Days Of Moderate To Strenuous Exercise, Like A Brisk Walk, Did You Do In The Last 7 Days? 0 Information not available 11/06/2017 On Those Days That You Engage In Moderate To Strenuous Exercise, How Many Minutes, On Average, Do You Exercise? 0 Information not available 11/06/2017 Swimming/diving No Informati on not available 02/02/2016 Have There Been Any Changes To Your Family Or Social Situation? No [email or web address] Information no t available 07/12/2022 How Hard Is It For You To Pay For The Very Basics Like Food, Housing, Medical Care, And Heating? Not Very Hard [email or web address] Information not available 07/12/2022 What Is The Fluoride Status Of Your Home? Fluoridated [email or web address] Information not available 07/12/2022 Hard Of Hearing Or Deaf In One Or Both Ears? No Information not available 02/02/2016 Have You Recently Or Are You Planning To Travel To An Area With Zika Virus? No [email or web address] Information not available 07/12/2022 Legally Blind In One Or Both Eyes? No Information no t available 02/02/2016 Live Alone Or With Others? With Others Information not available 02/02/2016 Do You Have A Medical Power Of Software Packager? No [email or web address] Information not available 07/12/2022 What Was The Date Of Your Most Recent Tobacco Screening? 06/11/2024 [email or web address] Information not available 06/11/2024 How Many Children Do You Have? 2 Information not available 02/02/2016 Performs Monthly Self-breast Exam? Yes [email or web address] Information no t available 12/21/2016 Do You Use Protection During Sex? No Information not available 02/02/2016 Do You Use Protection Against STDs? No [email or web address] Information not available 07/12/2022 What Is Your Relationship Status? Information not available 02/02/2016 Seat Belts Used Routinely Yes Information not available 02/02/2016 Are You Sexually Active? Yes Information not available 02/02/2016 Smoke Alarm In Home Yes Information not available 02/02/2016 Do You Have Smoke And Carbon Monoxide Detectors In Your Home? Yes [email or web address] Information not available 07/12/2022 Are You Passively Exposed To Smoke? No Information no t available 02/02/2016 How Much Tobacco Do You Smoke? No Information not available 12/21/2016 General Stress Level High Information not available 02/02/2016 Do You Use Sunscreen Routinely? Yes Information not available 02/02/2016 Has Tobacco Cessation Counseling Been Provided? No [email or web address] Information not available 12/21/2016 Do You Have Difficulty Walking Or Climbing Stairs? No Information not available 02/02/2016 What Contraceptive Method Was Reported At Start Of This Visit? Female Sterilization Information not available 07/12/2022 Do You Want To Talk About Contraception Or Prevention During Your Visit Today? No - I Do Not Want To Talk About Contraception Today Because I Am Here For Something Else [email or web address] Information not available 07/12/2022 Do You Have Any Future Plans To Get ? No, I Don't Want To Become [email or web address] Information not available 07/12/2022 Sex: Female Functional Status Question Answer Note LastModified by Organizat ion Details LastModified Time Do you or have you ever used smokeless tobacco? Never used [email or web address] tobacco Information not available 05/22/2019 Are you currently employed? Yes Information not available 02/02/2016 Do you have transportation difficulties? No [email or web address] Information not available 07/12/2022 Are you able to care for yourself? Yes Information n ot available 02/02/2016 Do you have difficulty dressing or bathing? No Information not available 02/02/2016 Do you or have you ever used e-cigarettes or vape? Never used electronic cigarettes Information not available 05/22/2019 What is your exercise level? None Information not available 02/02/2016 Do you use any illicit or recreational drugs? No [email or web address] Information not available 07/12/2022 Do you or have you ever used any other forms of tobacco or nicotine? No Information not available 07/12/2022 What is your level of alcohol consumption? None Information not available 02/02/2016 What is your status? Not Information no t available 07/12/2022 Are you able to walk? [email or web address] Information not available 06/28/2016 Do you have difficulty doing errands alone? 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 GS5096-1 [email or web address] Information not available 07/12/2022 Do you have difficulty concentrating, remembering or making decisions? No Information no t available 02/02/2016 Family History Relationship Description Onset Age of this Age Resolved Age Notes LastModified by Organization Details LastModified Time Father Arthritis [email or web address] Not availa ble 01/29/2016 15:05:53 Father History of cardiac surgery Bypass Not available 01/28 15:06:36 Father Fibromyalgia [email or web address] Not annetta ilable 01/29/2016 15:07:27 Mother Malignant tumor of cervix [email or web address] Not available 01/28 15:06:54 Paternal Grandmother Malignant tumor of colon [email or web address] Not available 01/28 15:07:09 Paternal Grandmother Type 2 diabetes mellitus [email or web address] Not available 01/28 15:07:19 Medical History Condition Response Pancreatitis N Other N Atrial Fibrillation N congenital heart disease N Blood Diseases N Hyperthyroidism N Rheumatoid arthritis N Blood Transfusion N Erectile Dysfunction N amputation N Skin Lesions N Depression N Pneumonia N Incontinence N Murmur N Edema N Alzheimer's Disease N Migraine Headaches N Tobacco Abuse N Anxiety Disorder Y Hemorrhoids N Obesity N Vision or Eye Problems N Arthritis N Restless Leg Syndrome N Polyps N Infertility N Carpal Tunnel N Acid Reflux (GERD) Y Cancer N Varicosities N Stroke N Tendonitis N Crohn's Disease N Hypercholesterolemia N Skin Cancer N Headaches N Fibromyalgia Y Irritable Bowel Syndrome N Anal Fissure N Kidney Disease N Heart Problems N Hospitalizations Y Gallstones N Kidney or Bladder Problems N Goiter N Acne N Eating Disorder N Gutierrez's Esophagus N Hypertriglyceridemia N Constipation N Embolism N Vitamin B12 Deficiency N Deviated Septum N AIDS/HIV N Myocardial Infarction N Asthma N Mitral Valve Disorders N Vertigo N Hepatitis N Thyroid Cancer N Neuropathy N History of DVT N Herniated Disc N Chicken Pox Y Autism Spectrum Disorder (ASD) N Von Willebrands Disease N Thrombophilias N Breast Cancer N Hernia N Plantar Fasciitis N Hypothyroidism N Lung Disease N Defects or Inherited Disease N Breast Problem N Ovarian Cyst N Anesthesia Complications N Testosterone Deficiency N Interstitial Cystitis N Congenital Anomalies N Hypoglycemia N Blood clot N Vitamin D Deficiency N Cellulitis N Endometriosis N Bladder or Kidney Problems N Fracture N Colorectal Cancer N Panic Disorder N Schizophrenia N Concussion N Spina Bifida N Osteoarthritis N Parkinson's Disease N Disc Protrusion N STI N Esophagitis N Angina N Thyroid Problems Y GI Problems N ADD/ADHD N Anemia N Multiple Sclerosis N Abnormal PAP N Lumbago N Mental Illness N Psychiatric Illness N Diabetes N Ovarian Cancer N Degenerative Disc Disease N Seizures/Epilepsy N Hyperlipidemia N Syncope N Insomnia N Eczema N Abuse/Domestic Violence N Attention Deficient Disorder N Dementia N Ulcerative colitis N Cerebrovascular Disease N Depression N Guillain-[place] N Sleep Apnea N Aneurysm N Bronchitis N Heart Disease N Hypertension N Pre-Eclampsia N Suicidal Ideation N Osteoporosis N Gynecological History Statement/Question Response Abnormal Pap N Date of Last Mammogram 07/18/2022 Date of LMP Post Menopausal Bleeding N STIs/STDs N Current Control Method Hysterectom y Age at First Child 18 Last Annual Exam/Provider 06/17/15 manuel Boo [employer] Last Lipids 05/02/22 abn If Post Menopausal, Age at Menopause 35 Date of Last Colonoscopy 01/02/2024 Sexually Active? Y Date of Last Cervical Culture 03/10/2020 Menses Monthly N Date of Last Pap Smear Sexual Problems? N LMP Approximate Hormone Replacement Therapy N Obstetrics History GPAL:G 2 P 2 0 0 2 Type Value Full Term 2 Living 2 Total 2 Immunizations Vaccine Type Date Status Note Provider Nam e and Address Organization Details Recorded Time COVID-19, mRNA, LNP-S, PF, 30 mcg/0.3 mL dose 12/08/2020 completed Naty Bren null, [place] - [facility] 07/28/2021 15:45:16 COVID-19, mRNA, LNP-S, PF, 30 mcg/0.3 mL dose 12/29/2020 completed Anthony Noel null, MA - [facility] 07/08/2022 15:04:13 Past Encounters Encounter ID Performer Location Encounter Start Date Encounter Closed Date Diagnosis/Indication Diagnosis SNOMED-CT Code Diagnosis ICD10 Code Diagnosis Note [id number] [facility] [address] [place] [address] 11/09/2011 00:00:00 [id number] [facility] [address] [place] [address] 12/02/2011 00:00:00 [id number] [facility] [address] [place] [address] 01/06/2012 00:00:00 [id number] [facility] [address] [place] [address] 02/06/2012 00:00:00 [id number] [facility] [address] [place] [address] 06/07/2011 00:00:00 [id number] [facility] [address] [place] [address] 07/18/2011 00:00:00 [id number] [facility] [address] [place] [address] 08/16/2011 00:00:00 [id number] [facility] [address] [place] [address] 09/09/2011 00:00:00 [id number] [facility] [address] [place] [address] 10/14/2011 00:00:00 [id number] [facility] [address] [place] [address] 03/06/2012 00:00:00 [id number] [facility] [address] [place] [address] 5 10/12/2012 00:00:00 [id number] [facility] [address] [place] [address] 5 10/23/2012 00:00:00 [id number] [facility] [address] [place] [address] 5 10/26/2012 00:00:00 [id number] [facility] [address] [place] [address] 5 11/30/2012 00:00:00 [id number] [facility] [address] [place] [address] 5 12/28/2012 00:00:00 [id number] [facility] [address] [place] [address] 5 01/25/2013 00:00:00 [id number] [facility] [address] [place] [address] 03/06/2012 00:00:00 [id number] [facility] [address] [place] [address] 5 03/28/2012 00:00:00 [id number] [facility] [address] [place] [address] 10/24/2013 00:00:00 [id number] [facility] [address] [place] [address] 05/04/2012 00:00:00 [id number] [facility] [address] [place] [address] 5 11/04/2013 00:00:00 [id number] [facility] [address] [place] [address] 5 12/04/2013 00:00:00 [id number] [facility] [address] [place] [address] 01/06/2014 00:00:00 [id number] [facility] [address] [place] [address] 5 01/16/2014 00:00:00 [id number] [facility] [address] [place] [address] 03/03/2015 00:00:00 [id number] [facility] [address] [place] [address] 06/04/2012 00:00:00 [id number] [facility] [address] [place] [address] 5 07/04/2012 00:00:00 [id number] [facility] [address] [place] [address] 5 09/03/2012 00:00:00 [id number] [facility] [address] [place] [address] 09/11/2012 00:00:00 [id number] [facility] [address] [place] [address] 5 10/02/2012 00:00:00 [id number] [facility] [address] [place] [address] 10/12/2012 00:00:00 [id number] [facility] [address] [place] [address] 5 04/06/2015 00:00:00 [id number] [facility] [address] [place] [address] 5 06/17/2015 00:00:00 [id number] [facility] [address] [place] [address] 07/07/2015 00:00:00 [id number] [facility] [address] [place] [address] 01/25/2013 00:00:00 [id number] [facility] [address] [place] [address] 02/12/2013 00:00:00 [id number] [facility] [address] [place] [address] 5 09/02/2015 00:00:00 [id number] [facility] [address] [place] [address] 11/02/2015 00:00:00 [id number] [facility] [address] [place] [address] 02/27/2013 00:00:00 [id number] [facility] [address] [place] [address] 5 04/15/2013 00:00:00 [id number] [facility] [address] [place] [address] 5 05/28/2013 00:00:00 [id number] [facility] [address] [place] [address] 5 05/29/2013 00:00:00 [id number] [facility] [address] [place] [address] 5 07/31/2013 00:00:00 [id number] [facility] [address] [place] [address] 5 08/27/2013 00:00:00 [id number] [facility] [address] [place] [address] 5 09/30/2013 00:00:00 [id number] [facility] [address] [place] [address] 10/24/2013 00:00:00 [id number] [facility] [address] [place] [address] 02/28/2005 00:00:00 [id number] [facility] [address] [place] [address] 03/07/2005 00:00:00 [id number] [facility] [address] [place] [address] 07/01/2005 00:00:00 [id number] [facility] [address] [place] [address] 5 07/29/2008 00:00:00 [id number] [facility] [address] [place] [address] 09/10/2008 00:00:00 [id number] [facility] [address] [place] [address] 09/22/2008 00:00:00 [id number] [facility] [address] [place] [address] 10/06/2008 00:00:00 [id number] [facility] [address] [place] [address] 09/13/2010 00:00:00 [id number] [facility] [address] [place] [address] 10/11/2010 00:00:00 [id number] [facility] [address] [place] [address] 5 11/19/2008 00:00:00 [id number] [facility] [address] [place] [address] 5 12/03/2008 00:00:00 [id number] [facility] [address] [place] [address] 10/13/2008 00:00:00 [id number] [facility] [address] [place] [address] 11/02/2015 00:00:00 [id number] [facility] [address] [place] [address] 03/04/2010 00:00:00 [id number] [facility] [address] [place] [address] 10/11/2010 00:00:00 [id number] [facility] [address] [place] [address] 07/02/2004 00:00:00 [id number] [facility] [address] [place] [address] 5 11/09/2010 00:00:00 [id number] [facility] [address] [place] [address] 04/14/2010 00:00:00 [id number] [facility] [address] [place] [address] 5 11/19/2010 00:00:00 [id number] [facility] [address] [place] [address] 11/18/2004 00:00:00 [id number] [facility] [address] [place] [address] 12/24/2010 00:00:00 [id number] [facility] [address] [place] [address] 11/30/2004 00:00:00 [id number] [facility] [address] [place] [address] 02/14/2011 00:00:00 [id number] [facility] [address] [place] [address] 5 12/14/2004 00:00:00 [id number] [facility] [address] [place] [address] 05/06/2011 00:00:00 [id number] [facility] [address] [place] [address] 01/25/2005 00:00:00 [id number] [facility] [address] [place] [address] 05/06/2011 00:00:00 [id number] [facility] [address] [place] [address] 05/20/2011 00:00:00 [id number] [facility] [address] [place] [address] 06/16/2010 00:00:00 [id number] [facility] [address] [place] [address] 07/14/2010 00:00:00 [id number] [facility] [address] [place] [address] 5 05/17/2010 00:00:00 [id number] [facility] [address] [place] [address] 07/26/2010 00:00:00 [id number] [facility] [address] [place] [address] 5 05/28/2010 00:00:00 [id number] [facility] [address] [place] [address] 5 08/16/2010 00:00:00 [id number] [facility] [address] [place] [address] 08/26/2010 00:00:00 [id number] [facility] [address] [place] [address] 02/28/2005 00:00:00 [id number] Bharati English APRN [address] [place] [address] 02/02/2016 12:14:47 02/02/2016 13:34:27 Body mass index 30+ - obesity 985067101 Z68.35 Vitamin D deficiency 347 03297 E55.9 Fatigue 10255791 R53.83 Type 2 fausto betes mellitus without complication 055474838 E11.9 Chronic pain syndrome 37 1246869 G89.4 Rheumatoid arthritis 698 56088 M06.9 Generalize d anxiety disorder 80075491 F41.1 [id number] Gerber Mcgill DO [address] [place] [address] 03/16/2016 14:50:50 03/16/2016 16:22:09 Acute maxillary sinusitis 09821487 J01.00 Increase fluids and rest. [id number] Bharati English [address] [place] [address] 06/28/2016 12:45:49 06/28/2016 13:55:06 Body mass index 30+ - obesity 332505949 Z68.35 Vitamin D deficiency 347 15381 E55.9 Fatigue 91239783 R53.83 Chronic pain syndrome 37 8576340 G89.4 Rheumatoid arthritis 698 85724 M06.9 Generalize d anxiety disorder 06672748 F41.1 Screening for malignant neoplasm of breast 575673690 Z12.31 Autonomic neuropathy due to type 2 diabetes mellitus 325889926 E11.43 Mixed hyperlipidemia 267 595341 E78.2 Vitamin B1 2 deficiency (non anemic) 88215210 E53.8 [id number] Bharati English [address] [place] [address] 09/28/2016 16:13:21 09/28/2016 17:05:23 Vaccine declined by patient [id number] 02 Z28.21 Body mass index 30+ - obesity 475735447 Z68.35 Vitamin D deficiency 347 23589 E55.9 Chronic pain syndrome 37 5212393 G89.4 Rheumatoid arthritis 698 38393 M06.9 Generalize d anxiety disorder 43580699 F41.1 Autonomic neuropathy due to type 2 diabetes mellitus 595512780 E11.43 Mixed hyperlipidemia 267 596113 E78.2 Vitamin B1 2 deficiency (non anemic) 32390788 E53.8 [id number] Alanna Arechiga MD [address] [place] [address] 11/04/2016 09:50:46 11/04/2016 10:24:37 Acute urinary tract infection 758390328 N39.0 [id number] DO Celeste [place] D[employer]ENER [address] [place] [address] [place] [address] 11/15/2016 13:04:27 11/15/2016 13:29:28 Body mass index 30+ - obesity 191369440 Z68.39 Screening mammography 24 920195 Z12.31 Pruritus of vulva 283303 00 L29.2 Vaginal discharge 950428 006 N89.8 [id number] Cristofer Paula APRN [facility] [address] [place] [address] 12/02/2016 09:00:16 12/02/2016 09:59:58 Acute sinusitis 06239606 J01.90 [id number] Bharati English APRN [address] [place] [address] 12/14/2016 11:12:53 12/14/2016 13:07:00 Vaccine declined by patient [id number] 02 Z28.21 Body mass index 30+ - obesity 220268773 Z68.34 Vitamin D deficiency 347 57891 E55.9 Chronic pain syndrome 37 5410476 G89.4 Rheumatoid arthritis 698 56069 M06.9 Generalize d anxiety disorder 67292300 F41.1 Autonomic neuropathy due to type 2 diabetes mellitus 954759193 E11.43 Mixed hyperlipidemia 267 590762 E78.2 Vitamin B1 2 deficiency (non anemic) 64406936 E53.8 Candidiasis of vagina 72 161249 B37.3 Postmenopausal state 764 02149 Z78.0 [id number] JOSE L Khan DAMPENER [address] [place] [address] [place] [address] 12/21/2016 11:10:46 12/21/2016 12:03:06 Candidal vulvovaginitis 78566066 B37.3 [id number] Bharati English APRN [address] [place] [address] 01/24/2017 12:02:01 01/24/2017 12:56:27 Type 2 diabetes mellitus without complication 010178993 E11.9 Vaccine de clined by patient 2962686759 02 Z28.21 Body mass index 30+ - obesity 734633236 Z68.34 Vitamin D deficiency 347 29967 E55.9 Chronic pain syndrome 37 2585258 G89.4 Rheumatoid arthritis 698 53906 M06.9 Generalize d anxiety disorder 76581022 F41.1 Autonomic neuropathy due to type 2 diabetes mellitus 662748003 E11.43 Mixed hyperlipidemia 267 403539 E78.2 Vitamin B1 2 deficiency (non anemic) 67033846 E53.8 Postmenopausal state 764 61165 Z78.0 Abdominal pain 49032385 R10.9 [id number] Bharati English APRN [address] [place] [address] 05/10/2017 10:38:55 05/10/2017 17:26:42 Type 2 diabetes mellitus without complication 690106012 E11.9 Vaccine de clined by patient 6546504486 02 Z28.21 Body mass index 30+ - obesity 738241638 Z68.34 Vitamin D deficiency 347 04885 E55.9 Chronic pain syndrome 37 3634879 G89.4 Rheumatoid arthritis 698 21663 M06.9 Generalize d anxiety disorder 45261052 F41.1 Autonomic neuropathy due to type 2 diabetes mellitus 933129926 E11.43 Mixed hyperlipidemia 267 147883 E78.2 Vitamin B1 2 deficiency (non anemic) 10829401 E53.8 Postmenopausal state 764 79132 Z78.0 [id number] Dennis Corley MD [address] [place] [address] 06/06/2017 14:43:03 06/06/2017 16:25:03 Pharyngitis 824486211 J02.9 Patient requests a refill on Nystatin. She has been using her daughter's script. Otitis media 87474811 H6 6.92 Patient requested an injection. [id number] Danielle Smith APRN [facility] [address] [place] [address] 08/08/2017 16:38:10 08/08/2017 17:12:46 Body mass index 30+ - obesity 384201598 Z68.35 Type 2 fausto betes mellitus 18456385 E11.9 referred to ER for as FSBS is 465. Report called to ER Upper resp iratory infection 74813013 J06.9 [id number] JOSE L Chasegianna [facility] [address] [place] [address] 08/11/2017 14:56:11 08/11/2017 16:05:39 Hyperglycemia 35434971 R73.9 Diabetes mellitus 665623 09 E11.9 Uncontroll ed type 2 diabetes mellitus 291292853 E11.65 Type 2 fausto betes mellitus without complication 055248236 E11.9 [id number] JOSE L [place] [address] [place] [address] 09/25/2017 16:09:23 09/25/2017 16:48:22 Type 2 diabetes mellitus 87928164 E11.9 Uncontroll ed type 2 diabetes mellitus 823754225 E11.65 rtc tomorrow for follow up [id number] JOSE L [place] [address] [place] [address] 10/06/2017 16:10:35 10/06/2017 16:49:51 Type 2 diabetes mellitus 69528279 E11.9 Uncontroll ed type 2 diabetes mellitus 772808614 E11.65 rtc 1 week for follow up. Advised to take januvia as prescribed last visit [id number] JOSE L [place] [address] [place] [address] 10/13/2017 12:43:38 10/13/2017 14:02:17 Type 2 diabetes mellitus 01786956 E11.9 [id number] JOSE L [place] [address] [place] [place] [address] 11/06/2017 16:40:36 11/06/2017 17:40:41 Type 2 diabetes mellitus 74275903 E11.9 Obesity 476502822 E66.9 [id number] JOSE L [place] [address] [place] [address] 11/14/2017 08:39:35 11/14/2017 09:14:35 Diabetes mellitus 76706059 E11.9 Uncontroll ed type 2 diabetes mellitus 337267000 E11.65 Cholestero l retinal embolus of left eye 2977991182 12987 H34.9 hollenhors t plaque [id number] Danielle Smith JOSE L [place] [address] [place] [place] [address] 12/18/2017 16:28:52 12/18/2017 17:09:23 Type 2 diabetes mellitus 78052765 E11.9 Body mass index 30+ - obesity 450241659 Z68.34 [id number] Danielledeepak Smith JOSE L [place] [address] [place] [address] 02/02/2018 12:34:17 02/02/2018 15:59:51 Type 2 diabetes mellitus 77387052 E11.9 Uncontroll ed type 2 diabetes mellitus 756068065 E11.65 Vaginal dryness 52114778 N89.8 Candidiasis of mouth 797 46155 B37.0 [id number] Cristofer Paula APRN [place] [address] [place] [place] [address] 03/07/2018 16:27:26 03/07/2018 16:55:25 Pain of ear 226920907 H92.09 Jaw pain 902696185 R68.8 4 [id number] Danielle Waldron JOSE L [place] [address] [place] [address] 03/09/2018 16:14:30 03/09/2018 17:02:17 Otitis media 70808441 H66.92 [id number] Chandrika Pineda APRN [place] [address] [place] [address] 03/21/2018 16:25:34 03/21/2018 16:58:06 Temporomandibular ehnke-xlqj-bkjkordzga n syndrome 624916294 M26.629 Bruxism 028755583 F45.8 [id number] Marshall Curtis MD [place] [address] [place] [address] 03/23/2018 15:10:28 03/23/2018 16:38:18 Headache 54012808 R51 cephalgia left (in the areas noted) Benign int racranial hypertension 35786111 G93.2 Jaw pain 368705085 R68.8 4 [id number] Cristofer Paula [employer] [place] [address] [place] [address] 03/30/2018 15:26:20 03/30/2018 16:38:35 Jaw pain 650787526 R68.84 Diabetes mellitus 405749 09 E11.9 [id number] Danielle SmithULISESN Matthew [facility] [address] [place] [address] 04/23/2018 15:46:08 04/23/2018 17:13:31 Cough 64368545 R05 Acute bronchitis 0054770 2 J20.9 [id number] Danielle SmithULISESN [place] [address] [facility] [place] [address] 07/09/2018 16:31:46 07/09/2018 17:46:30 Thoracic back pain 844684903 M54.6 [id number] Danielledeepak SmithJOSE L [facility] [address] [place] [address] 09/18/2018 16:21:56 09/18/2018 17:52:15 Vaginal dryness 74470747 N89.8 Anxiety 06491539 F41.9 Depressive disorder 3548 9007 F32.9 Obesity 676362113 E66.9 [id number] Danielle Smith [employer] [place] [address] [facility] [place] [address] 12/21/2018 15:23:49 12/21/2018 16:59:50 Palpitations 76509490 R00.2 Uncontroll ed type 2 diabetes mellitus 123051332 E11.65 Rheumatoid arthritis 698 95677 M06.9 [id number] Valerie Wheat PA-C [facility] [address] [place] [address] 02/15/2019 14:35:31 02/15/2019 15:22:56 Dysfunction of left eustachian tube 6655944496 400851 H69.92 [id number] Danielle Smith APRN [facility] [address] [place] [address] 03/28/2019 14:11:20 03/28/2019 15:42:27 Type 2 diabetes mellitus 66367973 E11.9 rtc in one month to follow up on new medication s Diabetes mellitus 293058 09 E11.9 Renewal of prescription 283262697 Z76.0 Anxiety 73404017 F41.9 Stiff neck 729563419 M43 .6 [id number] Bharati English [employer] [address] [place] [address] 05/22/2019 16:29:50 05/22/2019 17:24:26 Body mass index 30+ - obesity 763040298 Z68.34 Vitamin D deficiency 347 93923 E55.9 Chronic pain syndrome 37 2966267 G89.4 Rheumatoid arthritis 698 51214 M06.9 Generalize d anxiety disorder 15727615 F41.1 Mixed hyperlipidemia 267 616845 E78.2 Vitamin B1 2 deficiency (non anemic) 95540794 E53.8 Postmenopausal state 764 30673 Z78.0 Peripheral neuropathy due to type 2 diabetes mellitus 4437194999 107 E11.42 Hyperglyce sridevi due to type 2 diabetes mellitus 2003084767 18285 E11.65 Abdominal pain 90030120 R10.9 Fatigue 84911048 R53.83 [id number] Bharati English [employer] [address] [place] [address] 08/13/2019 12:00:18 08/13/2019 12:53:05 Body mass index 30+ - obesity 197457934 Z68.34 Vitamin D deficiency 347 88239 E55.9 Chronic pain syndrome 37 7572685 G89.4 Rheumatoid arthritis 698 20564 M06.9 Generalize d anxiety disorder 45607728 F41.1 Mixed hyperlipidemia 267 120598 E78.2 Vitamin B1 2 deficiency (non anemic) 87155873 E53.8 Postmenopausal state 764 20979 Z78.0 Peripheral neuropathy due to type 2 diabetes mellitus 0046763834 107 E11.42 Hyperglyce sridevi due to type 2 diabetes mellitus 9475760053 46290 E11.65 [id number] Bharati English APRN [address] [place] [address] 10/23/2019 11:09:38 10/23/2019 12:02:51 Body mass index 30+ - obesity 210391314 Z68.34 Vitamin D deficiency 347 21054 E55.9 Chronic pain syndrome 37 5182421 G89.4 Rheumatoid arthritis 698 91272 M06.9 Generalize d anxiety disorder 43157000 F41.1 Mixed hyperlipidemia 267 051586 E78.2 Vitamin B1 2 deficiency (non anemic) 45471211 E53.8 Peripheral neuropathy due to type 2 diabetes mellitus 2161374484 107 E11.42 Hyperglyce sridevi due to type 2 diabetes mellitus 6736669009 32109 E11.65 Acute urin angeline tract infection 990358728 N39.0 [id number] Marshall Curtis MD [facility] [address] [place] [address] 01/31/2020 15:11:24 01/31/2020 16:44:10 Otitis externa 0098183 H60.93 resolving [id number] Chandrika Pineda APRN [facility] [address] [place] [address] 02/05/2020 16:04:35 02/05/2020 17:01:25 Exposure to SARS-CoV-2 552878516 Z20.074 [id number] MD Yeny Flood DAMPENER [address] [place] [address] [place] [address] 03/10/2020 14:18:45 03/10/2020 17:04:49 Vaginal discharge 498674459 N89.8 Acute pelvic pain 467133 [address] of left ovary 5478639461 2327149 N83.292 Screening for malignant neoplasm of breast 533575071 Z12.39 [id number] MD Yeny Flood DAMPENER [address] [place] [address] [place] [address] 03/24/2020 13:56:20 03/24/2020 14:27:00 Complex ovarian cyst 7858143794 03 N83.773 [id number] Danielle WaldronJOSE L [facility] [address] [place] [address] 04/16/2020 14:51:35 04/16/2020 15:54:36 Otitis externa 4881998 H60.90 Fluid leve l behind tympanic membrane 439936746 H65.02 right TM [id number] Clarissa Frost MD [facility] [address] [place] [address] 05/26/2020 14:48:28 05/26/2020 16:23:35 Acute sinusitis 30300303 J01.90 [id number] Clarissa Frost MD [facility] [address] [place] [address] 09/21/2020 15:18:35 09/21/2020 15:59:32 Sinusitis 83253237 J32.9 [id number] Wendie Saab MD [address] [place] [address] 11/11/2020 09:28:40 11/11/2020 13:06:20 Cough 46338787 R05 Fluttering heart 1258612 04 R00.2 Intermitte nt. EKG showed a normal sinus rhythm. Get labs. I recommende d that she should go to hospital emergency department (ER) right now for further evaluation and management of heart fluttering . I offered transfer to ER via ambulance but patient declined that. Follow up with us and cardiologi after hospital discharge. Patient agrees with the above plan. Viral screening 77569689 4 Z11.52 Sore throat 074050231 J0 2.9 Acute pharyngiti s. Rapid Strep is positive. Take azithromyc in as prescribed . See us back or go to an ER right away should get worse or develop any new symptoms or complaints . Follow up with us in 3 to 5 days. Uncontrol ed type 2 diabetes mellitus 294858353 E11.65 A1c 9.9 on 11.11.2020 . Start Lantus 16 units once a day. I educated patient on how to adjust dose of Lantus at home. I recommende d to check fasting glucose and increase dose by 2 units every 3 days until fasting levels are in the target range (80 to 130). Recommende d to increase dose of Insulin in larger increments i.e. by 4 units every 3 days if fasting glucose more than 180. Further recommende d to reduce bedtime dose of Insulin by 4 units or 10% (whichever is greater) if hypoglycem ia occurs or the fasting glucose level less than 80.Discuss ed weight reduction through diet, exercise, and behavioral modificati on. Monitor blood sugar at home. Bring log of blood sugar readings at follow up appointmen t. See Ophthalmol ogist for annual diabetic eye examinatio n. Immunization advised 310 841057 Z71.9 Patient has declined to get Td/Tdap, Pneumonia, Shingles, COVID and Influenza vaccines despite counsellin g and education Screening for malignant neoplasm of colon 317722871 Z12.11 Options for colon rectal cancer screening were reviewed and discussed with patient. Patient would like to get COLOGUARD and order for same will be placed. Screening for malignant neoplasm of cervix 920235392 Z12.4 Hx of Hysterecto my. See Gynecologi st for a complete pelvic examinatio n [id number] Clarissa Frost MD [facility] [address] [facility] [place] [address] 11/17/2020 14:32:41 11/17/2020 15:11:14 Change in skin lesion 489825420 L98.9 [id number] MD Perta Waldengianna [facility] [address] [facility] [place] [address] 11/20/2020 14:34:56 11/20/2020 16:14:15 Pharyngitis 507166546 J02.9 previously diagnosed strep has resolved. Viral screening 57423705 4 Z11.52 Allergic rhinitis 660696 04 J30.9 recommend that she take an antihistam ine to help manage symptoms [id number] MD Petra Waldengianna [facility] [address] [facility] [place] [address] 11/26/2020 11:20:16 11/26/2020 12:12:41 Posterior rhinorrhea 62480638 R09.82 recommend that she take antihistam ine/use flonase daily; states that she has both at home to use. Return if symptoms persist. [id number] Clarissa Frost MD [place] [address] [place] [address] 12/15/2020 10:30:18 12/15/2020 12:08:05 Glossodynia 40666778 K14.6 [id number] Clarissa Frost MD [place] [address] [place] [address] 12/18/2020 11:19:07 12/18/2020 12:39:15 Glossodynia 50468182 K14.6 continue current tx (has been 2 days); discussed that this could be viral. If not improving, then return for an inperson visit. [id number] Marshall Curtis MD [place] [address] [place] [address] 12/30/2020 13:04:14 12/30/2020 14:20:54 Glossodynia 48266915 K14.6 Uncontroll ed type 2 diabetes mellitus 597955675 E11.65 [id number] Cristofer Paula APRN [place] [address] [place] [address] 03/01/2021 14:51:50 03/01/2021 15:35:29 Acute sinusitis 85571390 J01.90 Dry cough 96139917 R05.9 [id number] Clarissa Frost MD [facility] [address] [place] [address] 05/03/2021 15:42:47 05/03/2021 16:13:46 Type 2 diabetes mellitus 56944050 E11.9 Furuncle 682999866 L02.9 2 Abdominal pain 36716321 R10.9 [id number] MD Ayaan WaldenJacqu[place] [address] [place] [facility] [place] [address] 05/14/2021 15:01:19 05/14/2021 16:07:20 Type 2 diabetes mellitus 35739681 E11.9 Blurring o f visual image 803166855 H53.8 [id number] JOSE L Guadalupe [place] [address] [place] [address] 06/23/2021 09:46:37 06/23/2021 10:12:07 Pharyngitis 486497293 J02.9 Encouraged patient to utilize salt-water gargles QID while symptoms last and to increased oral fluid intake as tolerated. Acute bila teral otitis media with effusion 6775785773 107 H65.193 Patient reports that she has taken Amoxicilli n several times without adverse effect/all ergic reaction. [id number] Marshall Castro [place] [address] [place] [address] 07/21/2021 14:50:42 07/21/2021 16:05:19 Pharyngitis 769054276 J02.9 Viral screening 69900391 4 Z11.52 [id number] Marshall Castro [place] [address] [place] [address] 07/28/2021 15:37:03 07/28/2021 16:53:35 Pain in throat 706615218 R07.0 Disorder of esophagus 37 370535 K22.9 circumfere ntial thickening of the distal esophagus seen on CT abdomen/pe lvis [id number] JOSE L Guadalupegianna [place] [address] [place] [facility] [place] [address] 09/21/2021 16:07:51 09/21/2021 16:20:55 Trigger thumb of right hand 3619431336 42042 M65.311 Patient reports numbness in her right thumb and index finger with her thumb frequently getting stuff in one position. Patient reports significan t pain. [id number] JOSE L [place] [address] [place] [address] 04/11/2022 16:01:42 04/11/2022 16:32:11 Type 2 diabetes mellitus 42343443 E11.9 uncontroll ed chronic [id number] JOSE L Franco [facility] [address] [place] [address] 05/02/2022 08:04:38 05/02/2022 08:49:47 Type 2 diabetes mellitus 76685261 E11.9 uncontroll ed chronic Monica thyroiditis 21 097196 E06.3 chronic stable [id number] JOSE L GuadalupeMaria [facility] [address] [place] [address] 05/30/2022 09:36:33 05/30/2022 10:41:47 Dysuria 48085028 R30.0 Encouraged increased oral fluid intake as toleratedF ollow up based on culture results Acute sinusitis 27016395 J01.90 Patient reports that she has taken Amoxicilli n in the past without allergic reaction.F ollow up in 1-2 weeks if symptoms persist.Fe lilliana 102Left ear pain, headache, sinus pressure and tenderness . [id number] JOSE L Francogianna [facility] [address] [place] [address] 06/06/2022 13:05:04 06/06/2022 14:09:09 Body mass index 30+ - obesity 635245390 Z68.31 Obesity 405594054 E66.9 Acute left otitis media 229711420 H66.92 [id number] JOSE L Mcknight DAMP[address] [facility] [place] [address] 07/13/2022 09:46:46 07/13/2022 10:20:10 Routine gynecologic examination done 0023641673 9101 Z01.419 Depression screening 171 025288 Z13.89 PHQ-9 completed today. Diet education 89572564 Z71.3 Eat a well balanced diet, avoid large amounts fried/fatt y foods Counseling 681472549 Z71 .82 Exercise counselsherry horn. Patient encouraged to exercise 30 minutes 5 days a week. Examinatio n of blood pressure 387625500 Z01.30 Vaccine de clined by patient 2470723156 02 Z28.21 Pt declined flu vaccine today. History of total hysterectomy 709902126 Z90.710 History of right salpingo-oophorectomy 9395355644 4535221 Z90.721 Menopausal syndrome 1237 91239 N95.9 Candidiasis of vagina 72 052157 B37.31 Screening for malignant neoplasm of breast 725741360 Z12.39 Screening for malignant neoplasm of colon 724933350 Z12.11 Body mass index 30+ - obesity 809082292 Z68.31 Obesity 445009308 E66.9 [id number] JOSE L [place] [address] [place] [address] 07/08/2022 14:54:14 07/08/2022 15:48:11 Type 2 diabetes mellitus 94984129 E11.9 uncontroll ed chronic Hyperglyce sridevi due to type 2 diabetes mellitus 6736438298 [address]645 E11.65 [id number] JOSE L Franco [place] [address] RENGILBERTOGianna [facility] [place] [address] 07/28/2022 14:19:34 07/28/2022 14:49:35 Type 2 diabetes mellitus 42121188 E11.9 chronic stable Body mass index 30+ - obesity 406155855 Z68.31 Obesity 399477790 E66.9 [id number] JOSE L Pimentel [place] [address] [place] [address] 08/09/2022 15:44:29 08/09/2022 16:05:29 Pleurisy 114683697 R09.1 Generalize d anxiety disorder 58949783 F41.1 [id number] JOSE L Pimentel [place] [address] [address] [place] [address] 08/30/2022 14:35:49 08/30/2022 15:15:57 Pleurisy 797112799 R09.1 [id number] JOSE L [place] [address] [address] [facility] [place] [address] 10/05/2022 16:46:09 10/05/2022 17:31:26 Type 2 diabetes mellitus 67917767 E11.9 chronic stable Dysuria 53407801 R30.0 [id number] Chandrika Truepipo JOSE L Layagianna [place] [address] [place] [address] 10/28/2022 09:46:51 10/28/2022 10:27:58 Type 2 diabetes mellitus 16361493 E11.9 chronic stable Hyperlipidemia 56839488 E78.5 chronic stable [id number] Chandrika Pineda APRN [place] [address] [place] [address] 12/30/2022 14:24:08 12/30/2022 14:55:04 Type 2 diabetes mellitus 86596836 E11.9 chronic stable Mixed hyperlipidemia 267 181436 E78.2 chronic [id number] Cristofer Paula APRN [place] [address] [place] [facility] [place] [address] 01/03/2023 15:33:44 01/03/2023 16:12:49 Pain of left shoulder joint 7296142686 4649572 M25.512 Pharyngitis 961174194 J0 2.9 [id number] Chandrika Pineda APRN [place] [address] [place] [facility] [place] [address] 08/14/2023 16:03:13 08/14/2023 16:24:14 Dysuria 21412071 R30.0 Type 2 fausto betes mellitus 59696273 E11.9 chronic stable Spasm of back muscles 20 7337390 M62.830 legs [id number] JOSE L Husainkeishajovani [place] [address] RENGILBERTOGianna [facility] [place] [address] 08/31/2023 10:40:27 08/31/2023 11:21:10 Acute sinusitis 88617938 J01.90 [id number] JOSE L Husain [place] [address] RENGILBERTOGianna [facility] [place] [address] 11/28/2023 14:49:54 11/28/2023 15:37:44 Anxiety 56254087 F41.9 Open wound of lower leg 834670526 S81.801A [id number] Cristofer NisaULISESN Lay[place] [address] [place] [address] 12/15/2023 14:42:55 12/15/2023 15:13:13 Anxiety 82978847 F41.9 Deficiency of vitamin D3 049794452 E55.9 Type 2 fausto betes mellitus 65385152 E11.9 [id number] Cristofer NisaULISESN Matthew [place] [address] [facility] [place] [address] 02/05/2024 09:06:49 02/05/2024 09:37:48 Muscle spasm of cervical muscle of neck 4252588429 04 M62.838 She has methocarba mol at home [id number] Maria Curtis [employer] [place] [address] MAT[address] [facility] [place] [address] 03/22/2024 10:26:12 03/22/2024 11:17:19 Vitamin D deficiency 89686383 E55.9 Follow up based on labs Pain of mu ltiple joints 58467095 M25.50 ChronicFol low up based on labs Monica thyroiditis 21 285271 E06.3 Follow up based on labs Acute sinusitis 51298826 J01.90 Follow up in 1-2 weeks if symptoms persist. [id number] Cristofer Paula APRN [place] [address] MATTHE[address] [facility] [place] [address] 05/27/2024 16:34:56 05/27/2024 17:04:33 Sore throat 704931770 J02.9 [id number] Cristofer Nisa [employer] [place] [address] MAT[address] [facility] [place] [address] 06/03/2024 16:25:43 06/03/2024 17:15:10 Acute sinusitis 81093188 J01.90 Gastroesop hageal reflux disease without esophagitis 593323640 K21.9 Hyperglyce sridevi due to type 2 diabetes mellitus 3236680554 30433 E11.65 [id number] Cristofer Paula APRN Lay[place]na [facility] [address] [place], [place] [address] 06/11/2024 16:21:34 06/11/2024 16:40:43 Dry cough 93649421 R05.9 [id number] Chloé JOSE L Bailon Petrajovani [facility] [address] [place] [address] 08/07/2024 16:12:39 08/08/2024 08:05:41 Body mass index 30+ - obesity 448155032 Z68.31 Obesity 906071928 E66.9 Hyperglyce sridevi due to type 2 diabetes mellitus 0252887951 41995 E11.65 Sore throat 380700861 J0 2.9 Health Concerns Section Related Observation LastModified by Organization Detai ls LastModified Time None Recorded Concern Status LastModified by Organization Details LastModified Time None Recorded Advance Directives Directive N: Payers Insurance Date Sequence Insurance Name Policy Number Policy Long Covered Member ID Long Member ID Guarantor Name 04/16/2020 1 [place] [id number] Chanell Vazquez [id number] Chanell Vazquez 08/06/2024 1 [place] [id number] Chanell Vazquez [id number] Chanell Vazquez 05/13/2024 1 [facility] (PPO) [id number] Chanell Vazquez [id number] Chanell Vzaquez 04/16/2020 1 [place] [id number] Chanell Vazquez [id number] Chanell Vazquez 03/30/2023 1 [employer] ([place]) Chanell Vazquez [id number] Chanell Vazquez 04/16/2020 1 [place] [id number] Chanell Vazquez [id number] Chanell Vazquez 04/03/2022 PAYMENT PLAN Chanell Vazquez 04/16/2020 1 [facility] (PPO) [id number] Chanell Vazquez [id number] Chanell Vazquez Notes Date Note Type Note Provider Name and Address Organization Details Recorded Time 03/22/2024 text/html Musculoskeletal PainReported bypatient.Location:rig ht elbow; right wrist; right hand; left hip; great toe Quality:dull(aching, burn) Severity:worsening Duration:present for 1-6 months Timing:constant Alleviating factors:heat Aggravating factors:movement/posit ioning; bending over ADL (Activities of Daily Living)do not improve with medicationUpper Respiratory SymptomsReported bypatient.Location:hea d; throat Quality:congested Onset/Timing:actual date: (1 week) Associated Symptoms:no sputum production; no shortness of breath; no wheezing; no fever;sore throat(scratchy) Chanell is also requesting labs to check her vitamin d. Maria Curtis, JOSE L [address], [place], [address], [place] [facility] 03/22/2024 11:14:04 05/27/2024 text/html Chanell Vazquez is in the office with URI s/sx of congestion and sore throat (mostly left side), no cough. Started about a week ago. Cristofer Paula APRN [address], [place], [address], [place] [facility] 05/27/2024 17:00:44 06/03/2024 text/html Patient Chanell soto, presents today with complaints of nasal drainage, dry cough and occasional wheezing. No fever. Additionally, would like to start additional GERD medication and reduce her Mounjaro dose from 12.5 to 10 as the higher dose is too strong for her. Cristofer Paula APRN [address], [place], [address], [place] [facility] 07/26/2024 15:53:30 06/11/2024 text/html Patient Chanell soto, presents today with complaints of on going dry cough. States that everyone in her house tested positive for flu. Taking otc delsym doesn't help well. Cristofer Paula APRN [address], [place], [address], [place] [facility] 06/11/2024 16:42:26 08/07/2024 text/html Patient has had sore throat starting 3-4 days ago.Has felt achy. No fever.Able to eat and drink okay.Is sleeping.Has had some drainage/runny nose and bilateral ear ache. Chloé Bailon, TURKEY PICKER [address], [place], [address], [place] [facility] 08/07/2024 16:57:36 OBGyn Episode No OBEpisode recorded.
--- OUTSIDE RECORDS SUMMARY | 2024-10-02 09:09 | XMS_ITS | Referral Summary ---
Author Organization [employer] ([place], [place], [place], [place]) Address [address] [place] [address] Care Team Providers Care Tool Honing Machine Set Up Operator Name Role Phone Unavailable Primary Care Provider [...]
--- OUTSIDE RECORDS SUMMARY | 2024-10-02 09:09 | XMS_ITS | Clinical Summary ---
Author Organization [employer] ([place], [place], [place]) Address [address] [place] [address] Care Team Providers Care Stem Processing Machine Operator Name Role Phone Unavailable Primary Care [...]
--- OUTSIDE RECORDS SUMMARY | 2024-10-02 09:09 | XMS_ITS | Continuity of Care Document ---
Author Organization [facility] Address [address] [place] [address] Care Team Providers Care Moose Hunter Name Role Phone KIMANI LI [facility] Assessment No assessment recorded. Plan of Treatment Reminders Order Date Submit Date Provider Last Modified By Organization Details Last Modified Time Details Appointments None recorded. Lab rapid strep group A, throat 2024 025 constantino [facility], [address] [place] [address], [place], [address], 16:29:55 Referral None recorded. Procedures None recorded. Surgeries None recorded. Imaging None recorded. Medication Orders dexamethaso ne sodium phosphate 4 mg/mL injection solution 2024 025 lflora Not available 16:34:12 Medrol (Mychal) 4 mg tablets in a dose pack 2024 025 [facility], [address] [place], [address], 14:45:55 amoxicillin 875 mg tablet 2024 025 [facility], [address] [place], [address], 5 14:46:01 Mounjaro 12.5 mg/0.5 mL subcutaneou s pen injector 2024 025 KE[facility], [address] [facility], [place], [address], 16:30:29 Patient TargetsNo targets recorded. Patient Instructions Encounter Date Encounter Id Patient Instructions Last Modified By Organization Details Last Modified Time 08/07/2024 [id number] sore throat: car e instructions Not available 08/07/2024 16:29:55 learning about healthy weight Not available 08/07/2024 16:29:55 body mass index: care instructions Not available 08/07/2024 16:29:55 Pt advised to take medications as directed, tylenol and ibuprofen for pain and/or fever. Increase fluids. Rest. Salt water gargles. Not available 08/07/2024 16:57:12 Follow up as [...] Abnormal Flag Note LastModifiedBy Organization Detail LastModifiedTime 08/08/1908/07/2024 rapid strep group A, throa t Strep negati ve Not Available [facility] [address], [place], [address], 08/07/2024 16:18:02 08/08/1908/07/2024 rapid strep group A, throa t Culture No Not Available [facility] [place] [address], [place], [address], 08/07/2024 16:18:02 Result Notes None recorded. 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 2846018383 6077080 Completed 200412/07/2016 Linette Garcia [place] - [facility] 7 11:46:53 Type 2 diabetes mellitus 04250836 Active Amanda Magana [place] - [facility] 3 09:36:42 Fibromya lgia 651448981 Active 2013 Amanda Magana [place] [facility] 3 09:36:24 Hashimot o thyroidi tis 63635755 Active Amanda Magana [place] - [facility] 3 09:36:28 Pancreat itis 92855362 Completed 12/07/2016 Linette Garcia [place] [facility] 7 11:48:07 Palpitat ions 58340584 Active 2012 Amanda Magana [place] [facility] 3 09:36:34 Rheumato id arthriti s 87774390 Active Amanda Magana [place] [facility] 3 09:36:37 Exposure to SARS-CoV -2 Completed 201905/26/2020 Katy Tolentino null[place] - [facility] 1 15:15:47 Suspecte d COVID-19 817686114 Completed 03/01/2021 Removal Reason: Problem added by user bpoczate k from the COVID-19 watch flag Cristofer Paula, RETAIL LOSS PREVENTION OFFICER [address], [place], [address], [place] [facility] 1 15:15:58 Disorder of esophagu s 99172333 Active 2021 Amandarudy Magana null[place] - [facility] 3 09:36:17 Mammogra phy abnormal 014074575 Active 2022 Jenny Hager, RETAIL LOSS PREVENTION OFFICER [address], [place], [address], [place] - [facility] 3 11:32:00 Acute sinusiti s 12620851 Active 2023 Chloé Bailon, RETAIL LOSS PREVENTION OFFICER [address], [place], [address], [place] [facility] 4 11:06:51 Open wound of lower leg 971384944 Active 2023 Chloé Bailon, RETAIL LOSS PREVENTION OFFICER [address], [place], [address], [place] [facility] 4 15:30:21 Open wound of lower leg 667812116 Active 2023 Chloé Bailon, RETAIL LOSS PREVENTION OFFICER [address], [place], [address], [place] [facility] 4 15:30:28 Vitamin D deficien cy 95094413 Active 2023 Chloé BailonULISESN [address], [place], [address], [place] - [facility] 4 08:30:57 Pain of multiple joints 14434054 Active 2023 Maria Curtis, RETAIL LOSS PREVENTION OFFICER [address], [place], [place], [address], [place] [facility] 4 11:11:29 Hypergly cemia due to type 2 diabetes mellitus 2372143045 72300 Active 2024 Chloé Bailon [employer]AIL LOSS PRE[employer]ION OFFICER [address], [place], [address], [place] [facility] 5 16:22:08 Sore throat 409174637 Active 2024 Chloé Bailon, RETAIL LOSS PREVENTION OFFICER [address], [place], [address], [place] [facility] 5 16:22:08 Obesity 337470351 Active 2024 Chloé Bailon, RETAIL LOSS PREVENTION OFFICER [address], [place], [address], [place] [facility] 5 16:22:08 Notes:Pseudotumor Cerebri- h as shunt Problem Notes None recorded. Procedures Surgical History Date Name Laterality Status Provider Name and Address Organization Details Recorded Time 024 Date of Last Colonoscopy completed Jenny Hager, RETAIL LOSS PRE[employer]ION OFFICER [address], [place], [address], [place] - [facility] 01/10/2024 20:34:19 023 Date of Last Mammogram completed Jenny Hager, RETAIL LOSS PREVENTION OFFICER [address], [place], [address], [place] - [facility] 07/19/2022 11:32:43 022 Medication Reconcilliation completed Naty Bren [place] - [facility] 07/27/2021 14:09:00 020 Systolic B/P less than 130 mm Hg completed Deana Sy [place] - [facility] 05/22/2019 16:49:15 020 Diastolic B/P less than 80 mm Hg completed Deana Sy [place] - [facility] 05/22/2019 16:49:11 020 Negative Microalbumin completed Deana Sy [place] - [facility] 05/22/2019 16:49:20 020 A1C level 8.0 to 9.0 completed Deana Sy [place] [facility] 05/22/2019 16:52:22 019 Systolic B/P less than 130 mm Hg completed Lavonne Gannon [place] - [facility] 04/23/2018 16:12:28 019 Diastolic B/P 80-89 mm Hg completed Lavonne Gannon [place] [facility] 04/23/2018 16:12:30 016 Cholecystectomy, laparoscopic completed Lissette Lawson [place] - [facility] 01/29/2016 15:08:00 015 Salpingo-oophorect kimo, Right completed Linette Garcia [place] - [facility] 12/07/2016 11:44:28 005 Hysterectomy, Total Abdominal completed Linette Garcia [place] - [facility] 12/07/2016 11:44:39 005 Hysteroscopy completed Linette Garcia [place] - [facility] 12/07/2016 11:45:27 991 delivery completed Kathleen Colunga [place] - [facility] 12/21/2016 11:25:27 989 Caesarean Section completed Kathleen Colunga [place] [facility] 12/21/2016 11:25:17 TE[employer]NOLOGIES DIV[employer] CHAIR Shunt Placement completed Lissette bowser [place] [facility] 01/29/2016 15:09:22 Imaging Results None recorded. Procedure Notes None recorded. Medical Equipment None Reported. Allergies Allergen ID Allergen Name Allergen Category Reaction Reaction Severity Criticality Documentation Date Start Date Code Code System Note Provider Name and Address Organization Details Recorded Time 85674 Elavil medicatio n Not available Not available Not available 01/01/20162010 84819 RxNorm JIGNESH [facility] - [facility] 3 09:29:53 96173 Product containin g penicilli n (product) medicatio n Not available Not available Not available 01/01/20162007 61324 8001 SNOMED Comme nt: PCN; JIGNESH Mendez [facility] 3 09:29:55 74626 Cymbalta medicatio n Not available Not available Not available 01/01/20162010 52680 4 RxNorm JIGNESH Mendez [facility] 3 09:29:48 13805 metformin hydrochlo ride medicatio n Not available Not available Not available 01/01/20162012 54284 3 RxNorm Comme nt: OnSet Date: cause s nause a; Daniellepenny musa [facility] 8 15:56:59 Medications Name Sig Start Date [...] CAPSULES THREE TIMES DAILY NEEDED FOR COUGH 08/07 completed Not Available [...] Nexium 40 mg oral capsule, delayed release( DR/EC);R ecorded Status: Recorded on: 10/03/19 13 4:08PM;D [...] with food for 30 days 06/16 completed yaaiu m chloride 20 mEq oral tablet,E R particle s/marizol ls;Recor ded Status: Recorded on: 12/05/19 14 3:24PM;D iscontin ued Status: Disconti nued on: 06/17/19 16 10:03AM; User: rosalba; Est. Completi on: 06/03/19 15;Indic ation: Hypokale sridevi - (03.2899 00);Prin sabas: 12/05/19 14 Not Available Not [...] 2:06PM;U ser: hamptona ;Indicat ion: Pain - (16.1946 00) Not Available Not Available Not Available [...] Disconti nued on: 04/14/19 11 3:59PM;U ser: polo;Samantha t. Completi on: 06/03/19 11;Print ed: 03/04/20 [...] Disconti nued on: 10/03/19 13 4:08PM;U ser: akash Alvarez. Completi on: 03/10/20 13;Indic ation: Diabetes Mellitus [...] on: 06/03/19 15;Indic ation: Hyperten trinidad - (107) Not Available Not Available Not Available indometha [...] ser: hamptona ;Indicat ion: Hypothyr oidism - (191) Not Available Not Available Not Available buspirone [...] Disconti nued on: 03/03/20 15 5:43PM;U ser: rosalba; Est. Completi on: 06/23/19 15;Indic ation: Hyperten trinidad - ();Rosa Maurice fied: 12/25/19 14 6:42PM Not Available Not Available Not Available hydrochlo rothiazid e 25 mg tablet take 1 tablet (25 mg) by oral route once daily for 30 days 09/13 completed hydrochl orothiaz cuong 25 mg oral tablet;R ecorded Status: Recorded on: 07/15/19 11 4:19PM;D iscontin ued Status: Disconti nued on: 09/14/19 11 10:22AM; User: dilip katz;Est. Completi on: 08/14/19 11;Indic ation: Hyperten trinidad - () Not Available Not Available Not Available diclofena c sodium 50 mg tablet,de layed release take 1 tablet (50 mg) by oral route 3 times per day for 14 days 05/06 completed diclofen ac sodium 50 mg oral tablet,d elayed release (/EC); Recorded Status: Recorded on: 12/25/19 11 2:53PM;D [...] Disconti nued on: 09/14/19 11 10:22AM; User: dilip katz;Est. Completi on: 12/24/19 11 Not Available Not [...] Disconti nued on: 05/17/19 11 1:00PM;U ser: lalitisa; Est. Completi on: 05/14/19 11;Print ed: 04/14/19 11 Not Available Not Available Not Available Ambien 5 mg tablet take 1 tablet by oral route once a day (at bedtime) for 14 days 05/06 completed Ambien 5 mg oral tablet;R ecorded Status: Recorded on: 12/25/19 11 2:53PM;D iscontin ued Status: Disconti nued on: 05/06/19 12 2:15PM;U ser: [email or web address] b;Est. Completi on: 01/08/20 11;Print ed: 12/25/19 [...] 2:51PM;U ser: poczatek b;Indica tion: Pain - (986) Not Available Not Available Not Available Xanax 1 mg tablet Take one tablet by oral route prior to MRI on 07/30/1009/13 completed Xanax 1 mg oral tablet;R ecorded Status: Recorded on: 07/29/19 11 2:45PM;D iscontin ued Status: Disconti nued on: 09/14/19 11 10:22AM; User: sue Herndon ion: Panic Disorder - ( 10) Not Available Not Available Not Available glipizide [...] Disconti nued on: 03/03/20 15 5:43PM;U ser: margot ;Est. Completi on: 01/24/20 14;Print ed: 10/26/19 [...] Completi on: 09/21/19 11;Indic ation: Cough - (16.1078 00);Prin sabas: 09/14/19 11 Not Available Not [...] Cymbalta 30 mg oral capsule, delayed release( DR/EC);R ecorded Status: Recorded on: 11/20/19 09 4:15PM;D iscontin ued Status: Disconti nued on: 12/04/19 09 3:38PM;U ser: dunawaym Not Available Not Available Not Available omega-3 acid ethyl esters 1 gram capsule 12/14 completed Not Available Not Available Not Available Byetta 10 mcg/dose( 250 mcg/mL)2. 4 mL subcutane ous pen injector inject 0.04 millilit er (10 mcg) by subcutan eous route 2 times per day before morning and evening meals for 30 days 11/19 completed Byetta 10 mcg/dose (250 mcg/mL) 2.4 mL subcutan eous pen injector ;Recorde d Status: Recorded on: 11/10/19 11 3:09PM;D iscontin ued Status: Disconti nued on: 11/20/19 11 2:27PM;U ser: poczatek b;Est. Completi on: 12/10/19 11;Indic ation: Type 2 Diabetes Mellitus Treatmen t Adjunct - ();Prin sabas: 11/10/19 11 Not Available Not Available Not Available Byetta 5 mcg/dose (250 mcg/mL)1. 2 mL subcutane ous pen injector inject 0.02 millilit er (5 mcg) by subcutan eous route 2 times per day before morning and evening meals 06/16 completed Bylora 5 mcg/dose (250 mcg/mL) 1.2 mL subcutan [...] Disconti nued on: 03/04/20 10 10:37AM; User: [email or web address] Not Available Not Available Not Available NovoFine 30 Use as directed 06/16 completed NovoFine 30G Disposab le [place]; Recorded Status: Recorded on: 10/13/19 12 11:47AM; Disconti nued Status: Disconti nued on: 06/17/19 16 10:03AM; User: sue DuffEst. Completi on: 10/13/19 12;Print ed: 10/13/19 12 [...] b Not Available Not Available Not Available Digital TheatreTouch Ultra2 Meter kit use as directed dx [...] Disconti nued on: 03/03/20 15 6:21PM;U ser: akash Baker on: 03/29/19 15;Indic ation: Diabetes Mellitus , [...] 06/01/19 11;Indic ation: Gout Preventi on - () Not Available Not Available Not Available Savella [...] e Mikayla Pen Needle 32 gauge x 03/23 completed Not Available Not Available Not [...] 16;Indic ation: Type 2 Diabetes Mellitus - ( 00);Rosa Maurice fied: 03/03/20 15 6:10PM Not Available Not Available Not Available Hui SoloStar U-300 Insulin 300 unit/mL (1.5 mL) [...] Last Updated DateTime 165.1 cm 31.8 kg/m2 64764.8 4 g 98.7 [degF] 18 /min 83 /min 99 % 99 % 126/80 mm[Hg] Anitra Gardner [place] - [facility] 16:17:19 Social History Question Answer Notes LastModified by Organizat ion Details LastModified Time Tobacco Smoking Status Never Smoker Deana [place], [place] - [facility] 02/02/2016 12:42:03 Able To Swim? Yes Information not available 02/02/2016 Do You Have An Advance Directive? No Information not available 02/02/2016 Do You Wear A Helmet When Biking? No Information not available 02/02/2016 Are You Blind Or Do You Have Difficulty Seeing? No Information not available 02/02/2016 Is Blood Transfusion Acceptable In An Emergency? Yes [email or web address] Information not available 12/21/2016 What Is Your Level Of Caffeine Consumption? Occasional [email or web address] Information not available 07/12/2022 How Much Tobacco Do You Chew? None [email or web address] Information not available 12/21/2016 In The 14 Days Before Symptom Onset, Have You Had Close Contact With A Laboratory-confir med COVID-19 While That Case Was Ill? No [email or web address] Information not available 07/12/2022 In The 14 Days Before Symptom Onset, Have You Had Close Contact With A Person Who Is Under Investigation For COVID-19 While That Person Was Ill? No [email or web address] Information not available 07/12/2022 Have You Been To An Area Known To Be High Risk For COVID-19? No Information not available 07/12/2022 Are You Deaf Or Do You Have Serious Difficulty Hearing? No Information not available 02/02/2016 What Type Of Diet Are You Following? REGULAR Information not available 02/02/2016 Which Illicit Or Recreational Drugs Have You Used? None Information not available 02/02/2016 Have You Processed Blood Or Body Fluids From An Ebola Virus Disease Patient Without Appropriate PPE? No [email or web address] Information not available 07/12/2022 Do You Reside In Or Have You Traveled To An Area Where Ebola Virus Transmission Is Active? No Information not available 07/12/2022 What Is The Highest Grade Or Level Of School You Have Completed Or The Highest Degree You Have Received? [id number] Information not available 11/06/2017 How Many Days [...] To Your Family Or Social Situation? No [email or web address] Information no t available 07/12/2022 How Hard Is It For You To Pay For The Very Basics Like Food, Housing, Medical Care, And Heating? Not Very Hard [email or web address] Information not available 07/12/2022 What Is The Fluoride Status Of Your Home? Fluoridated Information not available 07/12/2022 Hard Of Hearing Or Deaf In One Or Both Ears? No Information not available 02/02/2016 Have You Recently Or Are You Planning To Travel To An Area With Zika Virus? No [email or web address] Information not available 07/12/2022 Legally Blind In One Or Both Eyes? No Information no t available 02/02/2016 Live Alone Or With Others? With Others Information not available 02/02/2016 Do You Have A Medical Power Of Oven Operator Automatic? No [email or web address] Information not available 07/12/2022 What Was The Date Of Your Most Recent Tobacco Screening? 06/11/2024 [email or web address] Information not available 06/11/2024 How Many Children Do You Have? 2 Information not available 02/02/2016 Performs Monthly Self-breast Exam? Yes [email or web address] Information no t available 12/21/2016 Do You Use Protection During Sex? No Information not available 02/02/2016 Do You Use Protection Against STDs? No [email or web address] Information not available 07/12/2022 What Is Your Relationship Status? Information not available 02/02/2016 Seat Belts Used Routinely Yes Information not available 02/02/2016 Are You Sexually Active? Yes Information not available 02/02/2016 Smoke Alarm In Home Yes Information not available 02/02/2016 Do You Have Smoke And Carbon Monoxide Detectors In Your Home? Yes [email or web address] Information not available 07/12/2022 Are You Passively Exposed To Smoke? No Information no t available 02/02/2016 How Much Tobacco Do You Smoke? No Information not available 12/21/2016 General Stress Level High Information not available 02/02/2016 Do You Use Sunscreen Routinely? Yes Information not available 02/02/2016 Has Tobacco Cessation Counseling Been Provided? No [email or web address] Information not available 12/21/2016 Do You Have Difficulty Walking Or Climbing Stairs? No Information not available 02/02/2016 What Contraceptive Method Was Reported At Start Of This Visit? Female Sterilization [email or web address] Information not available 07/12/2022 Do You Want To Talk About Contraception Or Prevention During Your Visit Today? No - I Do Not Want To Talk About Contraception Today Because I Am Here For Something Else [email or web address] Information not available 07/12/2022 Do You Have Any Future Plans To Get ? No, I Don't Want To Become Information not available 07/12/2022 Sex: Female Functional Status Question Answer Note LastModified by Organizat ion Details LastModified Time Do you or have you ever used smokeless tobacco? Never used smokeless tobacco Information not available 05/22/2019 Are you currently employed? Yes Information not available 02/02/2016 Do you have transportation difficulties? No [email or web address] Information not available 07/12/2022 Are you able [...] use any illicit or recreational drugs? No [email or web address] Information not available 07/12/2022 Do you or have you ever used any other forms of tobacco or nicotine? No [email or web address] Information not available 07/12/2022 What is your level of alcohol consumption? None Information not available 02/02/2016 What is your status? Not Information no t available 07/12/2022 Are you able to walk? [email or web address] Information not available 06/28/2016 Do you have difficulty doing errands alone? 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 PD1566-3 [email or web address] Information not available 07/12/2022 Do you have difficulty concentrating, remembering or making decisions? No Information no t available 02/02/2016 Family History Relationship Description Onset Age of this Age Resolved Age Notes LastModified by Organization Details LastModified Time Father Arthritis [email or web address] Not availa ble 01/29/2016 15:05:53 Father History of cardiac surgery Bypass [email or web address] Not available 01/28 15:06:36 Father Fibromyalgia [email or web address] Not annetta ilable 01/29/2016 15:07:27 Mother Malignant tumor of cervix [email or web address] Not available 01/28 15:06:54 Paternal Grandmother Malignant tumor of colon Not available 01/28 15:07:09 Paternal Grandmother Type 2 diabetes mellitus [email or web address] Not available 01/28 15:07:19 Medical History Condition [...] colitis N Cerebrovascular Disease N Depression N Guillain-Exeland N Sleep Apnea N Aneurysm N Bronchitis N Heart Disease N Hypertension N Pre-Eclampsia N Suicidal Ideation N Osteoporosis N Gynecological History Statement/Question Response Abnormal Pap N Date of Last Mammogram 07/18/2022 Date of LMP Post Menopausal Bleeding N STIs/STDs N Current Control Method Hysterectom y Age at First Child 18 Last Annual Exam/Provider 06/17/15 manuel Boo RETAIL LOSS PREVENTION OFFICER Last Lipids 05/02/22 abn If Post Menopausal, [...] Immunizations Vaccine Type Date Status Note Provider Gerber hook and Address Organization Details Recorded Time COVID-19, mRNA, LNP-S, PF, 30 mcg/0.3 mL dose 12/08/2020 completed JIGNESH Busby - [facility] 07/28/2021 15:45:16 COVID-19, mRNA, LNP-S, PF, 30 mcg/0.3 mL dose 12/29/2020 completed Anthony Noel null, [place] - [facility] 07/08/2022 15:04:13 Past Encounters Encounter ID Performer Location Encounter Start Date Encounter Closed Date Diagnosis/Indication Diagnosis SNOMED-CT Code Diagnosis ICD10 Code Diagnosis Note [id number] JOSE L Husain [facility] [address] [facility] [place] [address] 08/07/2024 16:12:39 08/08/2024 08:05:41 Body mass index 30+ - obesity 997199030 Z68.31 Obesity 405760993 E66.9 Hyperglyce sridevi due to type 2 diabetes mellitus 7810884969 25320 E11.65 Sore throat 213187116 J0 2.9 Health Concerns Section Related Observation LastModified by Organization Detai ls LastModified Time None Recorded Concern Status LastModified by Organization Details LastModified Time None Recorded Payers Encounter Date Sequence Insurance Name Policy Number Policy Long Covered Member ID Long Member ID Guarantor Name 08/07/2024 1 [employer]: [facility] [id number] Chanell Vazquez [id number] Chanell Vazquez Notes Date Note Type Note Provider Name and Address Organization Details Recorded Time 08/07/2024 text/html Patient has had sore throat starting 3-4 days ago.Has felt achy. No fever.Able to eat and drink okay.Is sleeping.Has had some drainage/runny nose and bilateral ear ache. Chloé Bailon APRN [address], [place], [address], [place] - [facility] 08/07/2024 16:57:36 OBGyn Episode No OBEpisode recorded.
[2024-10-02 09:47] VITALS: BP 140/80; PULSE 87; RESP 12; O2SAT 99; BMI 29.9
== END 2024-10-02 23:59 | disposition home or self-care (01) ==
PROVIDERS: PCP Nurse Practitioner Family; Visit Provider Nurse Practitioner Family
DX: M51.16 Intervertebral disc disorders with radiculopathy, lumbar region (principal); M50.123 Cervical disc disorder at C6-C7 level with radiculopathy; Z79.1 Long term (current) use of non-steroidal anti-inflammatories (NSAID); Z79.899 Other long term (current) drug therapy
CPT/HCPCS: 99212; G0463

== ENCOUNTER 2024-11-11 12:56 | Outpatient (POV) | payer BC, SELFPAY ==
--- OUTSIDE RECORDS SUMMARY | 2024-11-11 12:59 | XMS_ITS | Clinical Summary ---
Author Organization [employer] ([place], [place], [place], [place]) Address [address] [place] [address] Care Team Providers Care Property Controller Name Role Phone Unavailable Primary Care Provider [...]
--- OUTSIDE RECORDS SUMMARY | 2024-11-11 12:59 | XMS_ITS | Referral Summary ---
Author Organization [employer] ([place], [place], [place], [place]) Address [address] [place] [address] Care Team Providers Care Veneer Stock Grader Name Role Phone Unavailable Primary Care Provider [...]
--- OUTSIDE RECORDS SUMMARY | 2024-11-11 12:59 | XMS_ITS | Clinical Summary ---
Author Organization [facility] Address [address] [place] [address] Care Team Providers Care Marine Diesel Technician Name Role Phone AmadorBharati tejeda Obey DOMINGO Primary Care Provider [phone] Immunizations Immunization Administration Dates Next Due Influenza, [...] 2020 UKY-Zoster Vaccines (1 of 2) 2020 IIO-PGOYA-30 Vaccine (3 - 2023- season) 2023 12/29/2020, [...] complete this topic Insurance HUMAN Care Teams Marine Diesel Technician Relationship Specialty Start Date End Date Bharati English APRN [address] [place] [address] [facility] - General 08/07/20
[2024-11-11 13:02] VITALS: BP 145/97; PULSE 72; RESP 16; O2SAT 97; BMI 31.6
--- NOTE | 2024-11-11 13:31 | EXP.PAIN.SOA ---
[facility] Disclaimer: The information contained in this section may have been updated after the patient was seen, as this information can be updated by other users. Medical History No significant past medical history Family History Other No significant family history Social History Smoking Status: Never smoker alcohol intake: never current occupational status: other Travel in the last 8 weeks?: None PM Subjective & Objective Subjective Subjective:: Patient is a pleasant 54-year-old female who presents today for medication refill and follow-up. She rates her pain today at 3 out of 10. She denies any new trauma or injury. She states most of her pain today is in her upper neck area. Patient is currently managed with [place] 10 mg 4 times a day, methocarbamol 500 mg at bedtime and compounded cream. She denies any side effects. She does state that she just needs the pain medicine refill. Her Ti has been reviewed and is appropriate. Review of Systems: General: No recent weight changes, no fever, no sleep disturbances Respiratory: No cough, no shortness of air, no recurring pulmonary infections Cardiovascular/peripheral vascular: No chest pain, no palpitations, no edema, no shortness of breath Gastrointestinal: No new onset incontinence, normal bowel movements reported Genitourinary: No new onset incontinence Musculoskeletal: Neck pain Psychiatric: [Normal mood/affect] Neurological: [Denies weakness in extremities], [denies balance issues] Pain at rest (0-10 scale): 3 Objective Objective:: Physical Exam: General: Alert and oriented x3, no acute distress, pleasant and cooperative Lungs: Respirations even and unlabored, symmetrical chest expansion Eyes: PERRL Musculoskeletal: Flexion and extension of cervical [spine] somewhat guarded secondary to pain, [antalgic gait noted] Neurological: Speech clear, no gross sensory deficit Has patient had previous pain injection?: No Conservative treatment options previously tried: Home exercise plan Length of treatment: Longer than 12 weeks Meds Home Medications and Allergies Home Medications ?Medication ?Instructions ?Recorded ?Confirmed ?Type pantoprazole 40 mg tablet,delayed 40 mg PO DAILY GERD 10/22/20 11/11/24 History release hydroxyzine HCl 25 mg tablet 25 mg PO DAILY PRN Anxiety #5 tabs 01/14/21 11/11/24 Rx diclofenac sodium 75 mg 75 mg PO BID Pain 04/26/21 11/11/24 History tablet,delayed release famotidine 20 mg tablet 20 mg PO HS GERD 11/04/21 11/11/24 History baclofen 5 mg tablet 5 mg PO TID . 03/25/22 11/11/24 History hydrocodone 10 mg-acetaminophen 1 tab PO QID Pain #120 tabs 09/05/24 11/11/24 Rx 325 mg tablet hydrocodone 10 mg-acetaminophen 1 tab PO QID #120 tabs 10/02/24 11/11/24 Rx 325 mg tablet methocarbamol 500 mg tablet 500 mg PO HS #30 tabs 10/02/24 11/11/24 Rx hydrocodone 10 mg-acetaminophen 1 tab PO QID #32 tabs 11/04/24 11/11/24 Rx 325 mg tablet New Prescriptions to Start Prescriptions: Allergies Allergy/AdvReac Type Severity Reaction Status Date / Time Penicillins (PENICILLINS) Allergy Unknown UNKNOWN Verified 03/25/22 10:07 Assessment and Plan *Assessment and plan (1) Degenerative disc disease, cervical: Status: Acute Category: Medical Code(s): M50.30 - Other cervical disc degeneration, unspecified cervical region (2) Lumbar radiculopathy: Status: Acute Category: Medical Code(s): M54.16 - Radiculopathy, lumbar region (3) Degenerative disc disease, lumbar: Status: Acute Category: Medical Code(s): M51.369 - Other intervertebral disc degeneration, lumbar region without mention of lumbar back pain or lower extremity pain (4) Cervical radiculopathy at C7: Status: Acute Category: Medical Code(s): M54.12 - Radiculopathy, cervical region Plan I will refill the patient's [place] and provide a 1 month supply of this medication. Patient will return to clinic in 1 month for reevaluation of symptoms and plan of care. Risks and benefits of the medication have been explained in detail to the patient. The patient does understand the risk of dependence on the medication when given over a prolonged period. Patient has been advised of risks of oversedation with the prescribed medication. Narcan has been offered to the paitent in the event of oversedation. Patient has been advised that a family member should also be educated regarding administration of Narcan. The patient has been advised to consult with his/her primary care provider and pharmacist regarding drug-drug interaction of medications currently prescribed. Patient has been prescribed a controlled substance after being counseled on the medication, medication safety, and possible side effects. Opioid contract was reviewed and signed by the patient, and that they have agreed to all of the terms set forth by our compliance program. A UDS is needed to verify patient's compliance with our office pain contract. This is ordered based off specific treatments related to chronic pain with the potential to abuse certain medications. Patient has been instructed to contact the clinic with any concerns before the next appointment. Dr. Salas has reviewed this note and agrees with this plan of care. This note was dictated using voice recognition software and make contain errors or omissions.
== END 2024-11-11 23:59 | disposition home or self-care (01) ==
PROVIDERS: PCP Nurse Practitioner Family; Visit Provider Nurse Practitioner Family
DX: M50.123 Cervical disc disorder at C6-C7 level with radiculopathy (principal); M51.26 Other intervertebral disc displacement, lumbar region; Z79.891 Long term (current) use of opiate analgesic; Z79.899 Other long term (current) drug therapy